=== PATIENT | female | born 1955 | race Caucasian/White ===

== ENCOUNTER 2017-05-08 07:36 | Emergency (ER) | payer OTHER ==
[2017-05-08] MEDS ORDERED: Meclizine TAB* 12.5 MG PO ONE (08:39)
--- NOTE | 2017-05-08 08:49 | UC ---
Favian Marshall Gabriel, scribed for Baylee Caro MD on 05/08/17 at 0809 . Dizzy HPI HPI Summary: This patient is a 61 year old F presenting to [facility] with a chief complaint of dizziness since 05-04-17 when she got out of bed that morning. Pt states noticed when she turned her head. Patient reports weakness, increased stress, decreased appetite, nausea, and one episode of dry heaving. Patient denies CP, SOB, ABD pain, diarrhea, sore throat, vision changes, incontinence, and ear pain. As she went to get out of bed patient tipped over and hit face on door but she did not fall to the ground. Pt states since 05/04 her sx have improved, but she wanted to get checked. Pt states her dizziness is slightly better today but still present. No fever, chills, no ear pain, sinus congestion, sore throat. Pt with a h/o vertigo and states sx feel similar. Patients medication reviewed during this visit. - History Of Current Complaint Chief Complaint: UCDizziness Stated Complaint: DIZZY WEAK Time Seen by Provider: 05/08/17 08:04 Hx Obtained From: Patient Onset/Duration: Lasting Days, Still Present Timing: Constant Severity Initially: Mild Severity Currently: Mild Pain Intensity: 0 Pain Scale Used: 0-10 Numeric Associated Signs And Symptoms: Positive: Negative - CP, SOB, ABD pain, diarrhea , sore throat, vision changes, incontinence, and ear pain, Nausea, Decreased Oral Intake - Allergies/Home Medications Allergies/Adverse Reactions: Allergies Allergy/AdvReac Type Severity Reaction Status Date / Time chocolate flavor Allergy GI Upset Verified 05/08/17 08:10 ketorolac [From Toradol] Allergy Rash Verified 05/08/17 08:10 oxycodone Allergy Tingling Verified 05/08/17 08:10 PMH/Surg Hx/FS Hx/Imm Hx Previously Healthy: Yes Endocrine History: Hypothyroidism Cardiovascular History: Hypertension Respiratory History: Asthma, Pulmonary Embolism Psychological History: Depression, Other Other Psychological History: panic attacks - Surgical History Surgical History: Yes Surgery Procedure, Year, and Place: [place] [facility] [place]. [place] [facility] [place] [place] TUBAL LIGATION 1977. left shoulder- bone spurs[place]. [place] [facility] [place] per pt for reflux X 2 LAST 1999 [place] [facility] [place] - Family History Known Family History: Positive: Cardiac Disease, Hypertension, Diabetes - Social History Occupation: Disabled - due to depression Lives: With Family Alcohol Use: None Substance Use Type: None Smoking Status (MU): Never Smoked Tobacco Have You Smoked in the Last Year: No - Immunization History Most Recent Influenza Vaccination: 2016 Most Recent Tetanus Shot: unknown Most Recent Pneumonia Vaccination: never Review of Systems Constitutional: Other - stress, decreased appetite Gastrointestinal: Nausea, Other - dry heaving Neurological: Weakness, Other - dizziness All Other Systems Reviewed And Are Negative: Yes Physical Exam Triage Information Reviewed: Yes Appearance: Well-Appearing, No Pain Distress, Well-Nourished Vital Signs: Initial Vital Signs Temp 97.5 F 05/08/17 07:59 Pulse 74 05/08/17 07:59 Resp 16 05/08/17 07:59 BP 115/76 05/08/17 07:59 Pulse Ox 99 05/08/17 07:59 Vital Signs Reviewed: Yes Eye Exam: Normal Eyes: Positive: Conjunctiva Clear ENT Exam: Normal ENT: Positive: Hearing grossly normal, Pharynx normal, TMs normal, Uvula midline. Negative: Nasal congestion, TM bulging, Sinus tenderness Dental Exam: Normal Neck exam: Normal Neck: Positive: Supple, Nontender, No Lymphadenopathy Respiratory Exam: Normal Respiratory: Positive: Chest non-tender, Lungs clear, Normal breath sounds, No respiratory distress, No accessory muscle use Cardiovascular Exam: Normal Abdominal Exam: Normal Abdomen Description: Positive: Nontender, No Organomegaly, Other: - no bruits b/ l Bowel Sounds: Positive: Present Musculoskeletal Exam: Normal Musculoskeletal: Positive: Strength Intact Neurological Exam: Normal Neurological: Positive: Alert, Muscle Tone Normal, Other: - + horizontal extinguishing nystagmus to left other CN wnl Full AROM x 4 ambulatory without difficulty neg rhomberg Psychological Exam: Normal Skin Exam: Normal Diagnostics - EKG Cardiac Rate: NL - at 0745 Cardiac Rhythm: Sinus: Normal - at 80 BPM , Other Rhythm: New - QTc is [address]/T wave changes Re-Evaluation - Re-Evaluation First Eval Change: Improved - Pt sates feels much improved no dizziness ambulated will give po trial anticipate d/c with meclizine return precautions f./u with pcp pt comfortable and in agreement with plan Dizzy Course/Dx - Course Course Of Treatment: Pt with dizziness upon waking 4 days ago with nausea. sx have improved, not resolved. pt with nystagmus on exam. no other focal findings. vss. EKG unremarkable. will give meclizine and reassess. if not improvement, will consider transfer. pt comfortable and in agreement with plan - Differential Dx/Diagnosis Provider Diagnoses: vertigo Discharge - Discharge Plan Condition: Stable Disposition: HOME Prescriptions: Meclizine TAB* [Antivert 12.5 TAB*] 25 mg PO Q8HR PRN #15 tab PRN Reason: Dizziness Patient Education Materials: Vertigo (ED) Referrals: Berto Kahn MD [Primary Care Provider] - Additional Instructions: - Stay well hydrated. Drink plenty of non-alcoholic, non-caffinated beverages - Okay to take meclizine as prescribed for nausea and dizziness - eat regular, healthy meals - Contact Dr. Kahn to schedule a follow-up appoint. If your symptoms return, you develop fever, vomiting, increased pain or any other concerns it is recommended you go to the emergency department for further evaluation and treatment The documentation as recorded by the Favian roblero Gabriel accurately reflects the service I personally performed and the decisions made by me, Baylee Caro MD.
[2017-05-08 09:17] VITALS: BP 125/77
== END 2017-05-08 09:35 | disposition home or self-care (01) ==
LOC: UCEAST 07:36
DX: R42 Dizziness and giddiness (principal); E03.9 Hypothyroidism, unspecified; I10 Essential (primary) hypertension; J45.909 Unspecified asthma, uncomplicated; Z86.711 Personal history of pulmonary embolism; F41.0 Panic disorder [episodic paroxysmal anxiety]; F32.9 Major depressive disorder, single episode, unspecified; Z88.5 Allergy status to narcotic agent
CPT/HCPCS: 93005; 99212; A9270-GY; G0463

== ENCOUNTER 2017-07-16 11:53 | Emergency (ER) | payer OTHER ==
--- NOTE | 2017-07-16 12:31 | UC ---
Cardiac HPI - HPI Summary HPI Summary: ONSET OF FATIGUE AND NAUSEA 2 DAYS AGO. THEN YESTERDAY AROUND 2 PM WHILE AT REST WATCHING TV DEVELOPED MIDSTERNAL CHEST PAIN DESCRIBED A HEAVINESS ON HER CHEST. PAIN RADIATES TO HER SHOULDER BLADES AND HAS BEEN CONSTANT. WORSE WITH DEEP INSPIRATION. SHE HAS A DECREASED APPETITE AND SOME SLIGHT SHORTNESS OF BREATH. NO VISUAL DISTURBANCES OR HEADACHE. NOT DIZZY. NO SWEATS. SHE HAS A HISTORY OF "CLOTS IN HER LUNGS" IN 1979. REPORTS A HEART CATHETERIZATION IN 2000 THAT DID NOT FIND ANYTHING. TOOK A FULL STRENGTH ASPIRIN THIS MORNING. - History of Current Complaint Stated Complaint: CHEST PRESSURE, NAUGSEA Time Seen by Provider: 07/16/17 11:54 Hx Obtained From: Patient Onset/Duration: Sudden Onset, Lasting Hours, Still Present Timing: Constant Initial Severity: Moderate Current Severity: Moderate Pain Intensity: 8 Chest Pain Location: Mid Sternal Character: Dull/Aching, Heaviness Aggravating Factor(s): Exertion, Deep Breaths Alleviating Factor(s): Nothing Associated Signs & Symptoms: Positive: Chest Pain, SOB, Nausea/Vomiting, Back Pain - Allergy/Home Medications Allergies/Adverse Reactions: Allergies Allergy/AdvReac Type Severity Reaction Status Date / Time chocolate flavor Allergy GI Upset Verified 07/16/17 12:03 ketorolac [From Toradol] Allergy Rash Verified 07/16/17 12:03 oxycodone Allergy Tingling Verified 07/16/17 12:03 Home Medications: Home Medications Calcium Polycarbophil [Fiber] 625 mg PO DAILY 07/16/17 [History Confirmed ] Omeprazole CAP* [Prilosec CAP* 20 MG] 20 mg PO DAILY 07/16/17 [History Confirmed 07/16/17] PMH/Surg Hx/FS Hx/Imm Hx - Additional Past Medical History Additional PMH: PE 1979 Endocrine History: Hypothyroidism Cardiovascular History: Hypertension Respiratory History: COPD, Asthma Neurological History: Migraine Psychological History: Anxiety, Depression - Surgical History Surgical History: Yes Surgery Procedure, Year, and Place: [place] [facility] [place]. hysterectomy 1989 [facility] [place] 2000 [place]. [place] [place] TUBAL LIGATION 1977. left shoulder- bone spurs[place] 2001. right wrist [place] [facility] [place]. esophageal wrap per pt for reflux X 2 LAST 1999 [place] [facility] [place]. - Family History Known Family History: Positive: Cardiac Disease, Hypertension, Diabetes - Social History Alcohol Use: None Substance Use Type: None Smoking Status (MU): Never Smoked Tobacco Have You Smoked in the Last Year: No - Immunization History Most Recent Influenza Vaccination: 2016 Most Recent Tetanus Shot: unknown Most Recent Pneumonia Vaccination: never Review of Systems Constitutional: Fatigue Respiratory: Shortness Of Breath Cardiovascular: Chest Pain Gastrointestinal: Nausea All Other Systems Reviewed And Are Negative: Yes Physical Exam Triage Information Reviewed: Yes Appearance: Well-Nourished, Ill-Appearing - MOD Vital Signs: Initial Vital Signs Temp 99 F 07/16/17 12:07 Pulse 89 07/16/17 12:07 Resp 18 07/16/17 12:07 BP 111/68 07/16/17 12:07 Pulse Ox 95 07/16/17 12:07 Vital Signs Reviewed: Yes Eyes: Positive: Conjunctiva Clear ENT: Positive: Hearing grossly normal Neck: Positive: Supple, Nontender, No Lymphadenopathy Respiratory Exam: Normal Cardiovascular Exam: Normal Abdomen Description: Positive: Soft Musculoskeletal: Positive: No Edema Neurological: Positive: Alert Psychological: Positive: Age Appropriate Behavior Skin: Negative: rashes Diagnostics - EKG Cardiac Rate: NL - 94BPM Cardiac Rhythm: Sinus: Normal Ectopy: PVCs ST Segment: Normal - Clinical Impression Provider Diagnoses: CHEST PAIN - Physician Notifications Discussed Patient Care With: Rivera Taylor - TO [facility] ED BY AMBULANCE Time Discussed With Above Provider: 12:30 Instructed by Provider To: MD Will See In ED Discharge - Sign-Out/Discharge Documenting (check all that apply): Discharge/Admit/Transfer - Discharge Plan Condition: Stable Disposition: [facility] Referrals: Berto Kahn MD [Primary Care Provider] - - Billing Disposition and Condition Condition: STABLE [facility]
[2017-07-16 12:57] VITALS: BP 128/78
== END 2017-07-16 12:40 | disposition short-term general hospital (02) ==
LOC: UCEAST 11:53
DX: R07.89 Other chest pain (principal); R06.02 Shortness of breath; R11.2 Nausea with vomiting, unspecified; M54.9 Dorsalgia, unspecified; R53.83 Other fatigue; E03.9 Hypothyroidism, unspecified; I10 Essential (primary) hypertension; J44.9 Chronic obstructive pulmonary disease, unspecified; G43.909 Migraine, unspecified, not intractable, without status migrainosus; F41.9 Anxiety disorder, unspecified; F32.9 Major depressive disorder, single episode, unspecified; Z86.711 Personal history of pulmonary embolism; Z88.5 Allergy status to narcotic agent
CPT/HCPCS: 93005; 99213; G0463

== ENCOUNTER 2017-07-16 13:04 | Observation (INO) | payer OTHER ==
[2017-07-16] MEDS ORDERED: Nitroglycerin 2% OINT* 1 GM PAK TOPICAL ONE (13:29)
--- NOTE | 2017-07-16 13:38 | RAD ---
HISTORY: Chest pain COMPARISONS: September 18, 2015 VIEWS: 1: frontal portable view of the chest at 1:20 PM FINDINGS: LINES AND TUBES: None. CARDIOMEDIASTINAL SILHOUETTE: The cardiomediastinal silhouette is normal for portable technique. PLEURA: The costophrenic angles are sharp. No pleural abnormalities are noted. LUNG PARENCHYMA: The lungs are clear. ABDOMEN: The upper abdomen is clear. There is no subphrenic gas. BONES AND SOFT TISSUES: No bone or soft tissue abnormalities are noted. IMPRESSION: NO ACTIVE CARDIOPULMONARY DISEASE.
[2017-07-16 13:41] LABS: ABS Basophils 0 10^3/ul (0-0.2); ABS Eosinophils 0 10^3/ul (0-0.6); ABS Lymphocytes 0.4 10^3/ul (1.0-4.8); ABS Monocytes 0.4 10^3/ul (0-0.8); ABS Neutrophils 3.4 10^3/ul (1.5-7.7); ABS Nucleated RBC 0 10^3/ul; Eosinophil % 0.4 % (0-6); Hematocrit 40 % (35-47); Hemoglobin 13.2 g/dl (12.0-16.0); Lymphocyte % 9.6 % (25-47); Mean Corpuscular HGB Conc 33 g/dl (31-36); Mean Corpuscular Hemoglobin 27 pg (27-31); Mean Corpuscular Volume 82 fL (80-97); Nucleated Red Blood Cells % 0.1; Platelet Count 156 10^3/ul (150-450); Red Blood Count 4.92 10^6/ul (4.0-5.4); Red Cell Distribution Width 15 % (10.5-15); White Blood Count 4.3 10^3/ul (3.5-10.8)
[2017-07-16 13:53] LABS: EGFR Non-African American 63.3 (>60)
[2017-07-16] MEDS ORDERED: Iohexol 350* (CONTRAST) 500 ML MDV IV ONE (14:05)
--- NOTE | 2017-07-16 14:44 | RAD ---
HISTORY: Chest pain COMPARISONS: May 15, 2014 TECHNIQUE: Multiple contiguous axial CT scans of the chest were obtained after the administration of nonionic intravenous contrast, timed to the pulmonary arterial phase of contrast enhancement.. Coronal and sagittal multiplanar reformations are also submitted for review. FINDINGS: NECK AND THYROID: The lower neck and thyroid are unremarkable. CHEST WALL: There is no lower cervical, axillary, or supraclavicular lymphadenopathy by size criteria. HEART AND PERICARDIUM: The heart is unremarkable. AORTA AND PULMONARY VASCULATURE: The aorta and pulmonary vasculature are normal. MEDIASTINUM: There is no mediastinal lymphadenopathy by size criteria. JANETH: There is no hilar lymphadenopathy by size criteria. AIRWAY AND ESOPHAGUS: The airway is unremarkable, without endobronchial filling defect. The esophagus is grossly normal. LUNG PARENCHYMA: The lungs are clear. PLEURA: There is a small fat-containing Bochdalek hernia on the left. UPPER ABDOMEN: The upper abdomen is unremarkable. BONES AND SOFT TISSUES: There is a scoliotic curvature of the spine. Mild degenerative changes are noted. OTHER: None. IMPRESSION: NO PULMONARY ARTERIAL FILLING DEFECT TO SUGGEST PULMONARY EMBOLISM.
[2017-07-16] MEDS ORDERED: Morphine INJ* 10 MG/ML 1 ML CARPUJECT IV ONE (16:13)
[2017-07-16] MEDS ORDERED: Ondansetron INJ* 2 MG/ML VIAL IV PRN (16:19)
[2017-07-16] MEDS ORDERED: Lidocaine 2% VISCOUS* 15 ML UDC PO ONE (16:19)
[2017-07-16] MEDS ORDERED: Acetaminophen TAB* 325 MG PO PRN (16:19)
[2017-07-16] MEDS ORDERED: Sucralfate SUSP 1 GM/10 ml 10 ML UDC PO PRN (16:23)
[2017-07-16] MEDS ORDERED: Al Hydrox/Mg Hydrox/Simet LIQ* 30 ML UDC PO ONE (16:26)
[2017-07-16] MEDS ORDERED: Potassium Chloride LIQUID* 20 MEQ PACKET PO ONE (17:00)
[2017-07-16] MEDS ORDERED: Albuterol/Ipratropium NEB.SOL* Albuterol 2.5 MG/Ipratropium 0.5 MG 3 ML INH PRN (17:14)
--- NOTE | 2017-07-16 17:15 | RAD ---
HISTORY: Swollen legs COMPARISONS: May 25, 2010 TECHNIQUE: Multiple transverse and longitudinal ultrasound images were obtained of the bilateral lower extremities from the level of the common femoral vein inferiorly through to the infrapopliteal veins using grayscale, color Doppler, and spectral Doppler imaging with and without compression and with augmentation. FINDINGS: VEINS: The venous system of the bilateral lower extremities is compressible throughout its course, with normal flow on color Doppler imaging and normal response to augmentation on spectral Doppler imaging. SOFT TISSUES: Unremarkable. OTHER FINDINGS: None. IMPRESSION: NO RIGHT LOWER EXTREMITY DEEP VEIN THROMBOSIS. NO LEFT LOWER EXTREMITY DEEP VEIN THROMBOSIS
[2017-07-16] MEDS: Morphine VIAL* 4 MG/ML VIAL (1 ml vial) IV PRN ×2 (17:32→22:12)
--- NOTE | 2017-07-16 22:10 | HP ---
CC: Dr. Berto Kahn * ADMISSION HISTORY AND PHYSICAL: DATE OF ADMISSION: 07/16/17 PRIMARY CARE PROVIDER: Dr. Berto Kahn. MY ATTENDING WHILE IN THE HOSPITAL: Dr. Estiven Salmeron.* (DICTATED BY BETHANY CERVANTES) CHIEF COMPLAINT: Chest pain since 07/13/17. HISTORY OF PRESENT ILLNESS: Ms. Jesús Alexander is a 61-year-old female with a past medical history significant for hypertension, hyperlipidemia, PE, gastroparesis, anal cancer, status post chemo and radiation; and IBS-D, who presents with 3 days of chest pain that she describes as crushing in center of her chest. It has been going on since Saturday night, it is accompanied by nausea. The patient has baseline shortness of breath, but is not worse and the pain radiates to her back, but does not radiate into her arms or neck. The patient has had this pain previously and it went away on its own without intervention. It does not feel like her previous reflux. The patient has had a Vaughn fundoplication with a revision. The patient had an EGD in 2015, which was normal. The patient has confirmed gastroparesis, planned nuclear medicine scans. There is not any promotility agents. The patient recently had her antacid decreased from 40 mg of omeprazole a day to 20. The patient had a cardiac cath in 2000 and a normal cardiac stress test in October of 2016. The patient denies palpitations, fevers, or chills. The patient has no recent changes in her medications, diet except for the addition of fiber. The patient denies changes in vision, headache, increasing diarrhea. The patient feels like she needs to vomit, but has not actually vomited. The patient had swelling in her legs yesterday, this is a recurring problem with her and usually resolves with recumbency. The patient denies orthopnea, dyspnea on exertion. The patient has been seeing a operations boardman since 2015. The patient was given nitro patch in the emergency department and there was no reduction in her chest pain. The patient took aspirin at home and this did not change her chest pain. We were asked to evaluate for admission due to the patient's multiple cardiac risk factors and persistent chest pain. PAST MEDICAL HISTORY: 1. Anal cancer, 2012, status post chemo and radiation. 2. Migraines. 3. Hypertension. 4. Arthritis. 5. History of PE. 6. Hypothyroidism. 7. Asthma/COPD. 8. Chronic fatigue syndrome. 9. Depression. 10. Panic attacks. 11. Agoraphobia. 12. Osteoporosis. 13. Hyperlipidemia. 14. Gastroparesis. PAST SURGICAL HISTORY: 1. Tubal ligation. 2. Hysterectomy. 3. Vaughn fundoplication. 4. Revision left shoulder bone spur removal. 5. Tonsillectomy. 6. Catheterization, 2000. 7. Colonoscopy in 2012. MEDICATIONS: 1. Diltiazem 125 mg CD daily. 2. Dyazide 37.5/25, one tab p.o. daily. 3. Vitamin B12, 1000 units p.o. daily. 4. Calcium with vitamin D one tab p.o. daily. 5. Omeprazole 20 mg p.o. daily. 6. Aspirin 325 mg p.o. daily. 7. Levothyroxine 125 mcg p.o. daily. 8. Celebrex 200 mg p.o. daily. ALLERGIES: TORADOL, OXYCODONE, CHOCOLATE. FAMILY HISTORY: The patient's father of prostate cancer. The patient's mother of CHF. The patient had 2 brothers and a sister, all of whom recently of heart disease. SOCIAL HISTORY: The patient never smoked, drank or used illicit drugs. 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 The patient is . The patient has 2 children, who are healthy. The patient likes her surrogate decision maker to be her daughter, Chuy Hoffman. REVIEW OF SYSTEMS: A 14-point review of systems was reviewed and negative except as stated above. PHYSICAL EXAMINATION GENERAL: The patient is a 61-year-old female, who appears older than stated age , and sitting comfortably in bed, in no acute distress. VITAL SIGNS: Temperature 98.4, pulse rate 90, respiratory rate 15, oxygen saturation 95% on room air, blood pressure 113/82. HEENT: Head: Normocephalic, atraumatic. Sclerae anicteric. No conjunctival injection. Nasal mucosa moist. Oral mucosa moist. No pharyngeal erythema, discharge or exudate. NECK: Supple, nontender. No lymphadenopathy. No carotid bruits auscultated. No JVD. RESPIRATORY: Clear to auscultation bilaterally with no wheezes, rales or rhonchi. Good air exchange bilaterally. CARDIAC: Regular rate and rhythm. No clicks, murmurs, gallops, or rubs. Pulses are 2+ in the bilateral dorsalis pedis, posterior tibialis and radial areas. No bilateral calf tenderness. 1+ pitting edema in the bilateral lower extremities symmetrically. ABDOMEN: Soft, nontender, and nondistended. Bowel sounds present and normoactive in all 4 quadrants. No hepatosplenomegaly. No abdominal bruits auscultated. GENITOURINARY: No suprapubic or CVA tenderness. NEURO: Cranial nerves II through XII intact. No focal deficits. PSYCHIATRIC: Pleasant and cooperative. SKIN: Clean, dry, and intact. No rash. DIAGNOSTIC STUDIES/LAB DATA: White blood cell count 4.3, hemoglobin 13.2, hematocrit 40, MCV 82, MCH 27, MCH 33, RDW 15, platelet count 156. Sodium 138, potassium 3.2, chloride 104, carbon dioxide 28, anion gap 6, BUN 22, creatinine 0.91, glucose 133, lactic acid 0.6, calcium 8.7. Bilirubin 0.8, AST 49, ALT 36 , alkaline phosphatase 110. Troponin I 0.01. Total protein 6.9, albumin 3.9, globulin 3.0. Albumin to globulin ratio 1.3. Repeat troponin and lipase is pending. STUDIES DONE WHILE IN THE HOSPITAL: Chest x-ray from 07/16/17, read as no active cardiopulmonary disease. Chest thorax CTA from 07/16/17 read as no pulmonary arterial filling defect to suggest pulmonary embolism. ASSESSMENT AND PLAN/IMPRESSION: Ms. Jesús Alexander is a 61-year-old female with past medical history significant for hyperlipidemia, hypertension, history of pulmonary embolism, gastroparesis and IBS-D, who presents with chest pain for 3 days, which is atypical, varies with movement, but the patient has a ALEXIS risk score of 3 and will be ruled out with a stress test. This likely represents patient's chronic gastroenterological issues and this will be assessed as well during her hospitalization. 1. Chest pain. The patient's chest pain is crushing and substernal, radiating to her back. The patient was ruled out with a CTA for pneumonia, aortic dissection, or pulmonary embolism. The patient did not have a lipase drawn while in the emergency department, this is pending. The patient has nausea accompanying it, but no shortness of breath. The patient has a ALEXIS risk score of 3. The patient recently had a negative nuclear stress test. The patient had a cardiac catheterization in 2000, which was normal. However, the patient is concerned about this representing heart disease and she recently had 3 siblings of heart disease. We will admit the patient to the hospital, get a transthoracic echocardiogram and a nuclear stress test in the morning. The patient will be n.p.o. after midnight. The patient's diltiazem will be held. The patient will have hemoglobin A1c and a fasting lipid panel drawn. The patient had aspirin 325 mg this morning and this will be continued while in the hospital. The patient is having continued chest pain, this will be treated with morphine and continuation of nitroglycerin patch with a goal of eliminating all chest pain. Continue to trend troponin x3. 2. Gastroparesis, IBS-D. This chest pain very possibly represents gastrointestinal pain. The patient has previously had this pain, it has gone away without intervention. We will give the patient a GI cocktail and the patient will have sucralfate available as needed for chest pain due to the patient recently decreasing the patient's omeprazole. We will increase it to the patient's home dose. The patient was on celecoxib and aspirin. We will discontinue the celecoxib due to risk of heart disease as well as contributing to the risk of ulcers. The patient should follow up with a operations boardman as outpatient for consideration of a EGD or other possible issues such as diffuse esophageal spasm or continued gastroesophageal reflux disease despite Vaughn fundoplication. Consideration for promotility agents should also be taken with this patient. 3. Hypertension. Hold the patient's diltiazem for a stress test. Continue Dyazide. The patient is normotensive in emergency department. 4. History of pulmonary embolism. Due to the patient's leg swelling and new onset of chest pain even though she had a negative CTA of the chest, we will rule out deep vein thrombosis with venous ultrasound of the legs. 5. Asthma and chronic obstructive pulmonary disease. The patient is asymptomatic. The patient will have DuoNeb available as needed for shortness of breath. 6. Depression/anxiety. It is possible that anxiety is contributing significantly to the patient's chest pain. We would recommend outpatient followup with her primary care provider for better control of this. 7. Anal cancer. The patient is currently in remission. We will recommend repeat colonoscopy to be determined by her oncologist and operations boardman. 8. Hyperlipidemia. We will update patient's lipid profile. The patient's most recent LDL cholesterol from 02/17/16 was 117. 9. Leg swelling. Continue hydrochlorothiazide and Dyazide. Transthoracic echocardiogram and venous Doppler ultrasound as above. This does not likely represent congestive heart failure; however, assessment of wall motion abnormalities will aid in the diagnosis of both the chest pain and ruling out congestive heart failure and etiology of her leg swelling. 10. Hypothyroidism. Continue levothyroxine. 11. FEN. The patient will have fluids at 75 mL/h due to contrast enhanced study. The patient will have a heart-healthy diet without caffeine and to be n.p.o. after midnight. 12. Code status. The patient will like to be full code. Her surrogate decision maker will be her daughter, Chuy Hoffman as above. 13. DVT prophylaxis. The patient will be on heparin subcu. The patient is a high risk and has a history of DVT. 14. Disposition. The patient will be admitted under observation to telemetry. TIME SPENT: Approximately 60 minutes was spent on this admission, 30 of which was spent [id number] with the patient obtaining history and physical and discussing treatment plan. This plan was discussed with my attending, Dr. Estiven Salmeron, and he is in agreement. BETHANY CERVANTES [id number]/CPS #: [id number] MTDD
[2017-07-16] MEDS: Heparin VIAL(*) 5000 UNITS/ML VIAL (FIVE THOUSAND) SUBCUT SCH (22:13)
[2017-07-16] MEDS ORDERED: PROCHLORPERAZINE INJ 5 MG/ML 2 ML VIAL IV PRN (22:42)
[2017-07-17] MEDS ORDERED: Levothyroxine TAB* 125 MCG TAB PO SCH (06:00)
[2017-07-17 06:06] LABS: ABS Basophils 0 10^3/ul (0-0.2); ABS Eosinophils 0 10^3/ul (0-0.6); ABS Lymphocytes 0.7 10^3/ul (1.0-4.8); ABS Monocytes 0.3 10^3/ul (0-0.8); ABS Neutrophils 2.9 10^3/ul (1.5-7.7); ABS Nucleated RBC 0 10^3/ul; Eosinophil % 0.7 % (0-6); Hematocrit 37 % (35-47); Hemoglobin 12.4 g/dl (12.0-16.0); Lymphocyte % 17.9 % (25-47); Mean Corpuscular HGB Conc 33 g/dl (31-36); Mean Corpuscular Hemoglobin 27 pg (27-31); Mean Corpuscular Volume 81 fL (80-97); Mean Platelet Volume 8.3 um3 (7.4-10.4); Nucleated Red Blood Cells % 0.3; Platelet Count 165 10^3/ul (150-450); Red Blood Count 4.61 10^6/ul (4.0-5.4); Red Cell Distribution Width 14 % (10.5-15)
[2017-07-17 06:24] LABS: EGFR Non-African American 68.5 (>60)
[2017-07-17] MEDS: Heparin VIAL(*) 5000 UNITS/ML VIAL (FIVE THOUSAND) SUBCUT SCH (06:56)
[2017-07-17] MEDS ORDERED: Calcium/Vitamin D TAB 250/125* TAB PO SCH (09:00)
[2017-07-17] MEDS ORDERED: Cyanocobalamin TAB* 500 MCG PO SCH (09:00)
[2017-07-17] MEDS ORDERED: Aspirin EC TAB* 325 MG PO SCH (09:00)
[2017-07-17] MEDS ORDERED: Omeprazole CAP* 20 MG PO SCH (09:00)
[2017-07-17] MEDS ORDERED: Triamterene/HCTZ 37.5-25 MG* CAP PO SCH (09:00)
[2017-07-17 10:58] VITALS: BP 114/62
--- NOTE | 2017-07-17 12:46 | RAD ---
Edited for charges. INDICATION: Chest pain. Hypertension, family history of heart disease. COMPARISON: No relevant prior exams available on the [facility] for [place]. TECHNIQUE: 10.670 mCi of Tc-99m Myoview were administered IV. SPECT images of the heart were obtained. Later on the same day. Under the direction of Dr. Diego, an exercise stress test was performed. The patient achieved a peak heart rate of 172 bpm, 107 % of the age- predicted maximum. Subsequently, the patient was given an IV injection of 25.570 mCi Tc- 99m Myoview. SPECT images of the heart were obtained and a gated wall motion study was performed. FINDINGS: Gated wall motion images were obtained at stress and demonstrate wall motion to be within normal limits. The calculated left ventricular ejection fraction is 72 % at stress. Estimated LEFT ventricular end diastolic volume is 54 mL. TID 0.89. Diaphragmatic attenuation noted on the nonattenuation corrected series. Based on review of the attenuation corrected and non corrected images the distribution of radiopharmaceutical within the myocardium on the stress and rest images is within normal limits. No fixed or reversible regions of hypoperfusion evident. IMPRESSION: 1. No evidence for stress induced myocardial ischemia or presence of an infarct. 2. Normal left ventricular wall motion and ejection fraction. ASSESSMENT: Low risk based on nuclear portion. MTDD
[2017-07-17] MEDS ORDERED: NS 0.9% 1000 ML* 1,000 ML IV SCH ×2 (16:26)
--- NOTE | 2017-07-19 08:08 | DS ---
CC: Berto Kahn MD * DISCHARGE SUMMARY: DATE OF ADMISSION: 07/16/17 DATE OF DISCHARGE: 07/17/17 PRIMARY CARE PROVIDER: Berto Kahn MD. MY ATTENDING WHILE IN THE HOSPITAL: Estiven Salmeron MD.* (DICTATED BY BETHANY CERVANTES) PRIMARY DISCHARGE DIAGNOSES: Chest pain. SECONDARY DISCHARGE DIAGNOSES: 1. Anal cancer. 2. Migraines. 3. Hypertension. 4. Arthritis. 5. History of pulmonary embolism. 6. Hypothyroidism. 7. Chronic obstructive pulmonary disease. 8. Chronic fatigue syndrome. 9. Depression. 10. Panic attacks. 11. Agoraphobia. 12. Osteoporosis. 13. Hyperlipidemia. 14. Gastroparesis. STUDIES DONE WHILE IN THE HOSPITAL: Chest x-ray from 07/16/17 read as no active cardiopulmonary disease. Chest thorax CTA from 07/16/17 read as no pulmonary arterial filling defect to suggest pulmonary embolism. Venous Doppler study from 07/16/17, read as no right lower extremity DVT, no left lower extremity DVT. Nuclear medicine scan from 07/17/17, read as low risk based on nuclear portion. No evidence of stress-induced myocardial ischemia or presence of an infarct, normal left ventricular wall motion and ejection fraction. Echocardiogram from 07/17/17 read as left ventricular chamber size normal, increased basal septal hypertrophy, global ventricular wall motion and contractility within normal limits. Estimated ejection fraction is 55% to 60%. Right ventricular wall thickness is mildly increased. The right ventricular global systolic function is normal. 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 Aortic valve leaflets are mildly thickened with normal function. There is trace mitral regurgitation. There is trace tricuspid regurgitation. No pulmonary hypertension. No prior echo to compare. Echocardiogram from shows normal sinus rhythm. No ST segment changes. Normal axis, QTc of 408, rate of 67. No blocks or hypertrophy. No other abnormalities. MEDICATIONS AT DISCHARGE: 1. Diltiazem 125 mg p.o. daily. 2. Dyazide 37.5/25 one cap p.o. daily. 3. Vitamin B12, 1000 mcg p.o. daily. 4. Calcium carbonate D3, 500/200 one tab p.o. daily. 5. Omeprazole 40 mg p.o. daily. 6. Aspirin 325 mg p.o. daily. 7. Levothyroxine 125 mcg p.o. daily. 8. Celebrex 200 mg p.o. daily. 9. Tylenol 650 mg p.o. q.6 hours as needed. HOSPITAL COURSE: This is a brief summary of the patient's presentation. For more details, please see the history and physical from BETHANY Cervantes, on . In brief, the patient is a 61-year-old female with past medical history significant for the above who presents to the emergency department with chest pain for several days. It was described as crushing, it is in the center of her chest, started on 07/14/17 at night time. The patient had no increased shortness of breath. The patient had nausea, did not vomit. The patient stated the pain radiated to her back and not down her arms or up to her neck. The patient had a previous pain like this and came to emergency department with no troponin elevation or EKG changes. The patient has a normal cardiac stress test in October 2016 and normal catheterization in 2000. The patient's only recent med change she can think of is having her antacid decreased from 40 mg of omeprazole to 20 daily. The patient had EGD in 2015 which showed no issues with her Vaughn fundoplication. The patient had no other associated symptoms. No recent illnesses. The patient was admitted to the hospital due to multiple cardiac risk factors and persistent chest pain. The patient's pain did not respond to nitro patch. The patient's pain responded moderately to morphine. The patient's pain did not respond to a GI cocktail. The patient's pain was constant throughout the night. The patient was able to sleep with the help of morphine and in the morning her chest pain had gone. The patient during this admission had potassium of 3.2, which was replaced. Alkaline phosphatase of 110, LDL cholesterol 70, HDL cholesterol of 52 , hemoglobin A1c of 5.5. Troponin I 0.01, 0.01 and 0.00. Negative lipase. No significant laboratory abnormalities. The patient underwent a nuclear medicine stress test in the morning which was read as above. The patient was stable for discharge on 07/17/17. The patient was chest pain free. The patient had echocardiogram read as above with no wall motion abnormalities or other explanation for her chest pain. Due to the patient's significant gastrointestinal issues, she was recommended to reestablish with a it software developer for ongoing care and diagnosis of this recurrent chest pain. PHYSICAL EXAM ON DAY OF DISCHARGE: General: The patient is a 61-year-old female who appears stated age, sitting comfortably in bed, in no acute distress. Vital signs at the time of discharge: Temperature 97.9, pulse rate 82, respiratory rate 16, oxygen saturation 99% on room air, blood pressure 114/ 62. HEENT: Head: Normocephalic, atraumatic. Sclerae anicteric. No conjunctival injection. Nasal mucosa moist. Oral mucosa moist. No pharyngeal erythema, discharge, or exudate. Neck: Supple, nontender. No lymphadenopathy. No JVD. No carotid bruit auscultated. Cardiac: Regular rate and rhythm. No clicks, murmurs, gallops, or rubs. Pulses 2+ bilaterally in dorsalis pedis, posterior tibialis, and radial areas. 1+ pitting edema in bilateral lower extremities consistent with previous day's exam. Respiratory: Clear to auscultation bilaterally. No wheezes, rales, or rhonchi. Good air exchange bilaterally. Abdomen: Soft, nontender, nondistended. Bowels sounds present, normoactive in all 4 quadrants. No hepatospleno-megaly, no abdominal bruits auscultated. Skin: Clean, dry and intact. No rash. Neuro: Cranial nerves II through XII grossly intact. No focal deficits. Genitourinary: No suprapubic or CVA tenderness. Psychiatric: Pleasant and cooperative. LABORATORY DATA: On day of discharge, white blood cell count 4.0, hemoglobin 12.4, platelet count 165,000. Sodium 138, potassium 3.7, chloride 102, carbon dioxide 28, anion gap 8, BUN 16, creatinine 0.85. Glucose 93, hemoglobin A1c of 5.5, calcium 8.8, magnesium 2.2. Cholesterol 134, LDL cholesterol 70, HDL cholesterol of 52.4, triglycerides 56. DISCHARGE PLAN: The patient will be discharged to home. The patient now had 2 normal stress tests in the past year for this same chest pain. The patient has significant issues with her gastrointestinal system including confirmed gastroparesis and irritable bowel syndrome. In the absence of no other explanation, this is likely related to her gastrointestinal issues. Studies such as manometry, repeat gastric emptying studies, repeat EGD might be helpful in the assessment. This should be undertaken under the care of a it software developer who she should follow with, she has not since her it software developer Dr. Lainez retired. The patient should take antacids as needed for this pain; however, if this does not resolve the pain, the patient should return to the hospital for further evaluation as she does have significant cardiac risk factors. The patient should follow up with her primary care provider in 1 week for general medical management and continued primary prevention of [place]. I would recommend avoiding excess NSAID use including Celebrex due to increase in cardiovascular events. The patient can engage in activity as tolerated and have a heart healthy diet, caffeine okay. TIME SPENT: Approximately 60 minutes were spent on the discharge, 30 of which was spent [id number] with the patient obtaining history and physical and discussing treatment plan. BETHANY CERVANTES [id number]/CPS #: [id number] MTDD
--- NOTE | 2017-07-23 08:42 | ED ---
Olman Marshall Jennifer, scribed for Rivera Taylor MD on 07/16/17 at 1331 . HPI Chest Pain - HPI Summary HPI Summary: The patient is a 61 year old female who presents with constant, midsternal chest pain since yesterday. The patient reports the pain is 7/10 that radiates to between her shoulders. She complains of nausea, feeling cold, and ankle swelling. She denies shortness of breath, pain while breathing, coughing, and having a sour taste in her mouth. - History of Current Complaint Chief Complaint: EDChestWallPain Time Seen by Provider: 07/16/17 13:08 Hx Obtained From: Patient Onset/Duration: Started Days Ago - yesterday, Still Present, Worse Since - today Timing: Constant Initial Severity: Moderate Current Severity: Moderate Pain Intensity: 7 Pain Scale Used: 0-10 Numeric Chest Pain Location: Mid Sternal Chest Pain Radiates: Yes Chest Pain Radiates To:: Back - between shoulders Aggravating Factor(s): Nothing Alleviating Factor(s): Nothing Associated Signs and Symptoms: Positive: Other: - nausea, feeling cold, ankle swelling. NEGATIVE: shortness of breath, pain while breathing, coughing, sour taste in mouth - Allergy/Home Medications Allergies/Adverse Reactions: Allergies Allergy/AdvReac Type Severity Reaction Status Date / Time chocolate flavor Allergy GI Upset Verified 07/16/17 12:03 ketorolac [From Toradol] Allergy Rash Verified 07/16/17 12:03 oxycodone Allergy Tingling Verified 07/16/17 12:03 Home Medications: Home Medications Aspirin EC TAB* [Ecotrin EC TAB*] 325 mg PO DAILY 07/16/17 [History Confirmed ] Calcium Carbonate/Vitamin D3 [Calcium 500+D 500-200 mg-Unit] 1 tab PO DAILY 04/04 [History Confirmed 07/16/17] Cyanocobalamin TAB* [Vitamin B12 TAB*] 1,000 mcg PO DAILY 07/16/17 [History Confirmed 07/16/17] Diltiazem CD CAP* [Cardizem CD CAP*] 120 mg PO DAILY 07/16/17 [History Confirmed 07/16/17] Levothyroxine TAB* [Synthroid TAB*] 125 mcg PO DAILY 07/16/17 [History Confirmed 07/16/17] Omeprazole CAP* [Prilosec CAP* 20 MG] 40 mg PO DAILY 07/16/17 [History Confirmed 07/16/17] Triamterene/HCTZ 37.5-25 MG* [Dyazide CAP*] 1 cap PO DAILY 07/16/17 [History Confirmed 07/16/17] celeCOXIB CAP* [CeleBREX CAP*] 200 mg PO DAILY 07/16/17 [History Confirmed 07/16] PMH/Surg Hx/FS Hx/Imm Hx Endocrine/Hematology History: Reports: Hx Thyroid Disease Denies: Hx Diabetes, Hx Systemic Lupus Erythematosus Cardiovascular History: Reports: Hx Hypertension, Hx Rheumatic Fever - A CHILD, Other Cardiovascular Problems/Disorders - 2 caths Denies: Hx Congestive Heart Failure, Hx Pacemaker/ICD Respiratory History: Reports: Hx Asthma - PRN INHALER, Hx Chronic Obstructive Pulmonary Disease (COPD), Hx Pulmonary Embolism - HX OF 1979, Other Respiratory Problems/Disorders - COPD GI History: Reports: Hx Gastroesophageal Reflux Disease, Hx Hiatal Hernia, Other GI Disorders - ANAL CA Denies: Hx Ulcer History: Denies: Hx Dialysis, Hx Renal Disease Musculoskeletal History: Reports: Hx Arthritis - CHEST,SPINE AND HANDS, Hx Osteoporosis, Other Musculoskeletal History - osteoporosis, FIBROMYALGIA Denies: Hx Rheumatoid Arthritis Sensory History: Reports: Hx Contacts or Glasses - READING GLASSES Denies: Other Sensory Impairments Opthamlomology History: Reports: Hx Contacts or Glasses - READING GLASSES Denies: Other Sensory Impairments Neurological History: Reports: Hx Migraine - 2 X PER MONTH- TREATS WITH REST, Other Neuro Impairments/Disorders - FIBROMYALGIA, CHRONIC FATIGUE SYNDROME, INSOMNIA Psychiatric History: Reports: Hx Anxiety, Hx Depression Denies: Hx Panic Disorder - Cancer History Cancer Type, Location and Year: anal cancer dx 2011 Hx Chemotherapy: Yes - ANAL CANER 2012 Hx Radiation Therapy: Yes - Surgical History Surgery Procedure, Year, and Place: [place] [facility] [place]. hysterectomy [address] [facility] [place]-HEART CATHERIZATION 2000 [place]. L thyroidectomy-[facility] [place] -. TUBAL LIGATION 1977. left shoulder- bone spurs- [place] 2001. right wrist [place] [facility] [place]. esophageal wrap per pt for reflux X 2 LAST 1999 [place], [facility] [place]. Hx Anesthesia Reactions: No Infectious Disease History: No Infectious Disease History: Denies: Hx Clostridium Difficile, Hx Hepatitis, Hx Human Immunodeficiency Virus (HIV), Hx of Known/Suspected MRSA, Hx Shingles, Hx Tuberculosis, Hx Known/ Suspected VRE, Hx Known/Suspected VRSA, History Other Infectious Disease, Traveled Outside the [place] in Last 30 Days - Family History Known Family History: Positive: Cardiac Disease, Hypertension, Diabetes - Social History Alcohol Use: None Hx Substance Use: No Substance Use Type: Reports: None Hx Tobacco Use: No Smoking Status (MU): Never Smoked Tobacco Have You Smoked in the Last Year: No Review of Systems Positive: Chills. Negative: Fever Negative: Erythema Negative: Sore Throat Positive: Chest Pain Respiratory: Negative - Pain while breathing Negative: Shortness Of Breath, Cough Positive: Nausea. Negative: Abdominal Pain, Vomiting Negative: dysuria, hematuria Positive: Edema - ankle swelling. Negative: Myalgia Negative: Rash Neurological: Negative - dizziness All Other Systems Reviewed And Are Negative: Yes Physical Exam - Summary Physical Exam Summary: Constitutional: Well-developed, Well-nourished, Alert. (-) Distressed Skin: Warm, Dry HENT: Normocephalic; Atraumatic Eyes: Conjunctiva normal Neck: Musculoskeletal ROM normal neck. (-) JVD, (-) Stridor, (-) Tracheal deviation Cardio: Rhythm regular, rate normal, Heart sounds normal; Intact distal pulses; The pedal pulses are 2+ and symmetric. Radial pulses are 2+ and symmetric. (-) Murmur Pulmonary/Chest wall: Effort normal. (-) Respiratory distress, (-) Wheezes, (-) Rales Abd: Soft, (-) Tenderness, (-) Distension, (-) Guarding, (-) Rebound Musculoskeletal: (-) Edema Lymph: (-) Cervical adenopathy Neuro: Alert, Oriented x3 Psych: Mood and affect Normal Triage Information Reviewed: Yes Vital Signs On Initial Exam: Initial Vitals Temp Pulse Resp BP Pulse Ox 98.4 F 90 15 113/82 95 07/16/17 13:11 07/16/17 13:11 07/16/17 13:11 07/16/17 13:11 07/16/17 13:11 Vital Signs Reviewed: Yes Diagnostics - Vital Signs Vital Signs Temp Pulse Resp BP Pulse Ox 07/16/17 13:11 98.4 F 90 15 113/82 95 - Laboratory Result Diagrams: 07/16/17 13:22 07/16/17 13:22 Lab Statement: Any lab studies that have been ordered have been reviewed, and results considered in the medical decision making process. - Radiology CXR Xray Interpretation: No Acute Changes - NO ACTIVE CARDIOPULMONARY DISEASE. Dr. Taylor has reviewed this report. Radiology Interpretation Completed By: Radiologist - CT Chest/Thorax CTA CT Interpretation: No Acute Changes - NO PULMONARY ARTERIAL FILLING DEFECT TO SUGGEST PULMONARY EMBOLISM. Dr. Taylor has reviewed this report. CT Interpretation Completed By: Radiologist - EKG 13:22 Cardiac Rate: NL EKG Rhythm: Sinus Rhythm - 86 BPM EKG Interpretation: no STEMI - Additional Comments Diagnostic Additional Comments: Venous Doppler Study. Interpreted by a radiologist. IMPRESSION: NO RIGHT LOWER EXTREMITY DEEP VEIN THROMBOSIS. NO LEFT LOWER EXTREMITY DEEP VEIN THROMBOSIS. Dr. Taylor has reviewed this report. Chest Pain Course/Dx - Course Course Of Treatment: The patient is a 61 year old female who presents with constant, midsternal chest pain since yesterday. The patient shows multiple cardiac risk factors. In the ED course the patient was given NTG. CXR, Chest/ Thorax CTA, Venous Doppler Study, and EKG were obtained. The patient is diagnosed with chest pain, unspecified. The patient was admitted to [facility] [place]. - Diagnoses Provider Diagnoses: Chest pain, unspecified Discharge - Sign-Out/Discharge Documenting (check all that apply): Discharge/Admit/Transfer - Discharge Plan Condition: Good Disposition: ADMITTED TO [facility] The documentation as recorded by the Olman roblero Jennifer accurately reflects the service I personally performed and the decisions made by , Rivera Taylor MD.
== END 2017-07-17 15:30 | disposition home or self-care (01) ==
LOC: ED 13:04 → MEDTELE 16:30
PROVIDERS: ADMIT Student in an Organized Health Care Education/Training Program; ATTEND Student in an Organized Health Care Education/Training Program
DX: R07.9 Chest pain, unspecified (principal); I10 Essential (primary) hypertension; G43.909 Migraine, unspecified, not intractable, without status migrainosus; Z86.711 Personal history of pulmonary embolism; M79.89 Other specified soft tissue disorders; J44.9 Chronic obstructive pulmonary disease, unspecified; E03.9 Hypothyroidism, unspecified; F32.9 Major depressive disorder, single episode, unspecified; F41.9 Anxiety disorder, unspecified; F40.01 Agoraphobia with panic disorder; E78.5 Hyperlipidemia, unspecified; K31.84 Gastroparesis; I51.7 Cardiomegaly; Z85.048 Personal history of other malignant neoplasm of rectum, rectosigmoid junction, and anus; Z79.899 Other long term (current) drug therapy; Z79.01 Long term (current) use of anticoagulants; Z88.8 Allergy status to other drugs, medicaments and biological substances; M81.0 Age-related osteoporosis without current pathological fracture
CPT/HCPCS: 36415; 71045; 71275; 78452; 80048; 80053; 80061; 83036; 83605; 83690; 83735; 84484; 85025; 93005; 93017; 93306; 93970; 96372; 96374; 96375; 99283; A9270-GY; A9502; G0378; J0780; J1644; J2270; J2405; Q9967

== ENCOUNTER 2017-11-05 18:12 | Emergency (ER) | payer MEDICARE, OTHER ==
[2017-11-05] MEDS ORDERED: Morphine VIAL* 10 MG/ML 1 ML VIAL IV ONE (19:09)
[2017-11-05] MEDS ORDERED: Ondansetron INJ* 2 MG/ML VIAL IV ONE (19:09)
[2017-11-05] MEDS ORDERED: NS 0.9% 1000 ML* 1,000 ML IV ONE (19:09)
[2017-11-05 19:13] LABS: ABS Basophils 0.1 10^3/ul (0-0.2); ABS Eosinophils 0.1 10^3/ul (0-0.6); ABS Lymphocytes 0.8 10^3/ul (1.0-4.8); ABS Monocytes 0.4 10^3/ul (0-0.8); ABS Neutrophils 4.2 10^3/ul (1.5-7.7); ABS Nucleated RBC 0 10^3/ul; Eosinophil % 2.5 % (0-6); Hematocrit 40 % (35-47); Hemoglobin 13.5 g/dl (12.0-16.0); Mean Corpuscular HGB Conc 34 g/dl (31-36); Mean Corpuscular Hemoglobin 27 pg (27-31); Mean Corpuscular Volume 81 fL (80-97); Mean Platelet Volume 8.5 um3 (7.4-10.4); Nucleated Red Blood Cells % 0.1; Platelet Count 238 10^3/ul (150-450); Red Blood Count 4.98 10^6/ul (4.00-5.40); Red Cell Distribution Width 14 % (10.5-15); White Blood Count 5.6 10^3/ul (3.5-10.8)
[2017-11-05 19:29] LABS: EGFR Non-African American 60.2 (>60)
--- OUTSIDE RECORDS SUMMARY | 2017-11-05 19:57 | XMS REPORT ---
:1955 External Reference #:[id number] Author Organization [facility] Address [address] [place] [address] [place] [address] Phone [phone] Care Team Providers Name Role Phone Berto Kahn MD Primary Care Physician Unavailable Payers Type Date Identification Numbers Payment Provider Subscriber Medicare Primary Policy Number: Medicare Tamara Toro [id number] PayID: [id number] [address] [place] [address] Commercial Effective: Policy Number: [employer] Tamara Espinosa 2010 [id number] Medicaid Benjamin PayID: [id number] [address] [address] [place] [address] Problems Date Description Provider Status Onset: 07/15/2013 Malignant tumor of anus Anshul Winn M.D.,FACP Onset: 01/23/2010 Benign essential hypertension Christiano Garcia M.D. Active Onset: 01/23/2010 Postoperative hypothyroidism Christiano Garcia M.D. Active Onset: 01/23/2010 Peptic reflux disease Christiano Garcia M.D. Active Onset: 01/23/2010 Atypical depressive disorder Christiano Garcia M.D. Active Onset: 01/23/2010 Extrinsic asthma without status Alicia Mcdonald MD Active asthmaticus Onset: 10/15/2010 Chronic obstructive lung disease Christiano Garcia M.D. Active Note: 2nd hand smoke Onset: 10/15/2010 Panic disorder with agoraphobia Christiano Garcia M.D. Active Onset: 10/15/2010 Myalgia & Myositis Unspec Christiano Garcia M.D. Active Onset: 01/30/2011 Mixed hyperlipidemia Christiano Garcia M.D. Active Onset: 01/30/2011 Arthralgia of the lower leg Christiano Garcia M.D. Active Onset: 04/02/2017 Small bowel bacterial Berto Kahn, Active overgrowth syndrome Stuart,FACP Onset: 06/04/2011 Depressive disorder Christiano Garcia M.D. Inactive Inactive: 08/16/2013 Onset: 10/15/2010 Osteoporosis Christiano Garcia M.D. Resolved Resolved: 04/15/2014 Family History Date Family Member(s) Problem(s) Comments : (age Father due to Cancer, 85 Years) Prostate : (1996) Mother due to CHF Siblings 11 2 bro, 1 sis alive First Brother Chronic Obstructive Pulmonary Disease (COPD) First Brother due to Diabetes () - complications First Brother Diabetes Type II First Brother Hypertension Second Brother due to Motor () Vehicle Accident : (age Third Brother due to [place] 57 Years) : (age Fourth Brother due to CHF 74 Years) First Sister due to Unknown () Causes First Sister due to Heart () Disease Social History Type Date Description Comments Marital Status Lives With Son Occupation Disabled Cigarette Use Never Smoked Cigarettes ETOH Use 09/07/2016 Denies alcohol use Recreational Drug Use Denies Drug Use Smoking Patient has never smoked Exercise Type/Frequency Does not exercise General Hx Text 2 children Allergies, Adverse Reactions, Alerts Date Description Reaction Status Severity Comments 07/15/2013 Toradol Contact dermatitis active Moderate 05/06/2014 Oxycodone see spots,come off cloud 9 active Moderate 02/17/2016 Chocolate active 12/01/2009 NKDA inactive Medications Medication Date Status Form Strength Qnty SIG Indications Ordering Provider Ciprofloxacin 11/05/ Active Tablets 500mg 14tab si Berto Parker s twice a day Jeuss Kahn, x 7 days M.DAnn,FACP Omeprazole 06/07/ Active Capsules 20mg 90cap 1 tab by K21.0 Berto kinney mouth every Jesus Kahn, day M.DAnn,FACP Vitamin D 09/07/ Active Capsules 1000Unit 90cap 2 by mouth Berto (Cholecalcifero 2016 s every day Jesus Kahn, l) Stuart,FACP Celebrex 10/10/ Active Capsules 200mg 60cap 1 by mouth M17.12 Berto 2016 s twice a day Jesus Kahn, as needed Stuart,FACP Levothyroxine 10/21/ Active Tablets 125mcg 30tab 1 by mouth Berto Sodium 2013 s every day Jesus Kahn M.D.,FACP Diltiazem HCL 10/16/ Active Caps ER 120mg 90cap take 1 I10 Berto ER Beads 2013 24HR s capsule by Jesus Kahn, mouth once MCarla,FACP daily Aspirin Ec 10/01/ Active Tablets DR 325mg 90tab 1 by mouth Berto 2013 s every day Jesus Kahn M.D.,FACP Triamterene/Hyd 12/01/ Active Tablets 37.5-25mg 90tab 1 tab by I10 Sanjeev Christensen rochlorothiazid 2009 s mouth ethel Nugent everyday Stuart,FACP Vitamin B12 / Active Tablets 100mcg 180ta 2 tabs by Berto 0000 bs mouth every Jesus Kahn, day Stuart,ALEXISP Bactrim DS 09/09/ Hx Tablets 800-160mg 14tab 1 by mouth Berto 2018 - s twice a day Jesus Kahn, 09/16/ Stuart,ALEXISP 2018 Fibercon 06/07/ Hx Tablets 625mg 120ta 1 tabs Berto 2018 - bs twice a day Jesus Kahn, 07/29/ or as Stuart,FACP 2018 directed as needed Triamcinolone 04/02/ Hx Cream 0.1% 80gm apply twice Berto Acetonide 2018 - a day as Jesus Kahn, 07/29/ needed Stuart,ALEXISP 2018 Calcium 600 09/07/ Hx Tablets 600mg 90tab 1 by mouth Berto 2017 s once a day Jesus Kahn M.D.,ALEXISP Proair HFA 09/07/ Hx Aerosol 108(90Bas 8.500 2 puffs by Berto 2017 e) gm mouth every Jesus Kahn, mcg/Act 4 hours as M.D.,FACP needed Amoxicillin/Cla 07/20/ Hx Tablets 875-125mg 20tab take one J01.90 Donell vulanate 2017 - s tablet q12 Oj, BOTTOM BRUSHER Potassium 07/30/ hours for 2017 10 days Proair HFA 09/12/ Hx Aerosol 108(90Bas 1unit 2 puffs by Berto 2015 - e) s mouth every D. Femi, 07/20/ mcg/Act 4 hours as M.D.,FACP 2016 needed Naproxen 07/31/ Hx Tablets 500mg 60tab 1 tablet by M17.12 Yolande 2016 - s mouth with Bordoni, 10/10/ food twice BOTTOM BRUSHER 2016 daily for two weeks, and then as needed for pain Cane 07/10/ Hx use for M25.562 Mellisa 2016 - ambulation Xavi, 07/20/ in r hand M.D. 2016 Amoxicillin/Cla 04/15/ Hx Tablets 875-125mg 20tab take one J01.90 Donell vulanate 2016 - s tablet q12 Oj, BOTTOM BRUSHER Potassium 02/09/ hours for 2015 10 days Hydrocodone-Paul 04/15/ Hx Tablets 5-325mg 20tab take 1 R51 Donell taminophen 2016 - s tablets Oj, BOTTOM BRUSHER 04/26/ every 6 2016 hours for pain. Align Probiotic 12/31/ Hx 4mg 30uni 1 po daily Z85.048 Berto 2015 [place] ts Jesus Kahn, 12/31/ MCarla,FACP 2014 Align 12/31/ Hx Capsules 4mg 30cap 1 po qd Z85.048 Berto Kahn M.D.,FACP Calcium + D3 12/17/ Hx Tablets 600-200mg 60tab 1 tab by Kaushal 2014 - -Unit s mouth twice Hunter, BOTTOM BRUSHER 09/07/ a day 2017 Acidophilus 10/25/ Hx Tablets 30tab daily Berto Probiotic 2015 - s Jesus Kahn, Formula MCarla,FACP 2014 Acidophilus 10/25/ Hx Capsules 300mg 30cap 1 by mouth Berto Probiotic 2015 - s every day Jesus Kahn, MCarla,FACP 2014 Proair HFA 10/25/ Hx Aerosol 108(90Bas 1unit 2 puffs by Berto 2014 - e) s mouth every D. [place], 04/01/ mcg/Act 4 hours as M.D.,FACP 2015 needed Ondansetron HCL 10/25/ Hx Tablets 4mg 30tab 1 tab sl Berto 2014 - s q8h prn D. [place], 12/31/ M.D.,FACP 2014 Ondansetron Odt 10/25/ Hx Tablets 4mg 30tab 1 tab sl Berto 2014 - Dispers s q8h prn D. [place], 12/31/ M.D.,FACP 2014 Ondansetron 10/25/ Hx Tablets 4mg 20tab 1 tab sl R11.0 Berto 2014 - Dispers s every 8 D. [place], 07/29/ hours as M.D.,FACP 2017 needed [place] 08/30/ Hx Tablets 5-325mg 30tab 1-2 by 715.14 Giulia 2014 - mouth q4-6 Cedeno, 12/30/ hour as M.D. 2014 needed pain Lotrisone 05/06/ Hx Cream 1-0.05% 15gm apply a 782.1 Donell 2015 - thin film WILLY Mcwilliams 05/27/ of the 2014 cream to the affected areas twice daily for 2 weeks. Miralax 04/06/ Hx Powder [id number] 500un 17 gm every Berto 2014 day mixed D. [place], w/ 8 oz M.D.,FACP water/juice Acidophilus 02/25/ Hx Capsules 300mg 30cap 1 by mouth Victoria Probiotic 2014 - s every day Mathew, 02/25/ N.P. 2014 Probiotic & 02/18/ Hx Capsules 30cap 1 by mouth 789.06 Victoria Acidophilus 2013 - s every day Mathew, Formula Extra 02/25/ N.P. Strength 2014 Levoxyl 10/21/ Hx Tablets 125mcg 90tab 1 tablet by Berto 2013 - s mouth every D. [place], 10/21/ morning M.D.,FACP 2013 Colace 07/24/ Hx Capsules 100mg 90cap 1 by mouth Berto 2013 s three times D. [place], a day M.D.,FACP Voltaren 07/15/ Hx Gel 1% 100g apply 1-2 719.44 Berto 2014 - gms to Jesus Kahn, 10/16/ affected M.Jesus,FACP 2014 area twice a day as needed Wellbutrin XL 02/11/ Hx Tablets ER 300mg 30tab 1 by mouth Berto 2012 - 24HR s once daily Jesus Kahn, .D.,FACP 2015 Diltiazem HCL 10/14/ Hx Caps ER 120mg 30cap take 1 401.1 [place] LEENA 2011 - 24HR s capsule by Radha, 10/16/ mouth once M.D. 2013 daily Venlafaxine HCL 09/12/ Hx Caps ER 37.5mg 1mont 3 tab po Kandis ER 2011 - 24HR h every day Jake, .D. 2011 Venlafaxine HCL 09/12/ Hx Tablets 37.5mg 90tab 1 po tid Kandis 2011 - s Jake .D. 2011 Cartia XT 06/03/ Hx Caps ER 240mg 30cap 1 tab qd 401.1 Christiano 2011 - 24HR s Radha, .D. 2011 Omeprazole 06/03/ Hx Capsules 40mg 30cap 1 by mouth K21.0 Berto 2012 [place] PARKER s every day Jesus Kahn, .D.,FACP 2018 Protonix 02/07/ Hx Solution 40mg 30uni once daily Christiano 2010 - Rec ts Waleskaika, .D. 2011 Aspirin 02/05/ Hx Tablets 325mg 30tab once daily Christiano 2010 - s Pachika, .D. 2014 Effexor XR 01/30/ Hx Caps ER 37.5mg 90cap three tabs Christiano 2010 - 24HR s qd Pachika, .D. 2013 Neurontin 11/22/ Hx Capsules 100mg 45cap po tid 357.4 Christiano 2010 - s Pachika, .D. 2010 Venlafaxine HCL 11/17/ Hx Tablets 37.5mg 90tab 3 tab po Christiano 2010 - s daily Pachika, .D. 2010 Percocet 09/15/ Hx Tablets 5-325mg 60tab 1-2 po Marcus 2010 - s q4-6h prn Fer, 11/22/ pain M.DAnn 2010 Ibuprofen 06/21/ Hx Tablets 600mg 90tab po tid take 722.93 Christiano 2010 - s with food Radha, M.D. 2010 Effexor XR 04/24/ Hx Caps ER 75mg 90cap 3 tab po Christiano 2010 - 24HR s daily Waleskaika, 11/17/ M.D. 2010 Venlafaxine HCL 01/23/ Hx Caps ER 75mg 30cap 1 po qd [place] ER 2009 - 24HR s Radha, 04/24/ M.D. 2010 Ondansetron Odt 01/23/ Hx Tablets 4mg 30tab 1 tab sl Berto 2009 - Dispers s q8h prn Jesus Kahn, 10/25/ M.DAnn,FACP 2014 Ibuprofen 01/20/ Hx Tablets 200mg 100ta one po Berto 2009 - bs q6hrs prn Jesus Kahn, 03/28/ with food Stuart,FACP 2010 Oscal 500/200 12/01/ Hx Tablets 500-200mg 60tab twice a day 244.0 Christian Huynh3 2009 - -Unit s Jesus Kahn, 12/17/ M.DAnn,FACP 2015 Levoxyl 09/29/ Hx Tablets 150mcg 30tab 1 by mouth Berto 2009 - s every day Jesus Kahn, 10/21/ in in the M.D.,FACP 2013 morning Cartia XT 09/29/ Hx Caps ER 120mg 30cap 1 po qd Berto 2009 - 24HR nirmal Kahn, 06/03/ MCarla,FACP 2011 Aspir-81 09/29/ Hx Tablets DR 81mg 90tab 1 po qd Harry, 2009 - s MD Alicia 2009 Effexor XR 09/29/ Hx Caps ER 225 90cap 1 po qd Harry, 2009 - 24HR s MD Alicia 2009 Nexium 09/29/ Hx Capsules 40mg 30cap 1 po qd Christiano 2009 - DR nirmal Garcia, 02/07/ M.D. 2010 Albuterol 09/29/ Hx 1unit 2 puffs po Berto Inhaler 2009 - s qid prn Jesus Kahn, M.D.,FACP 2014 Ranitidine HCL 09/29/ Hx Capsules 150mg 90cap 1 po qd Harry, 2009 - s MD Alicia 2010 Lisinopril 09/29/ Hx Tablets 5mg 90tab 1 po qd Harry, 2009 - s MD Alicia 2009 Aspirin/Antacid 09/29/ Hx Tablets DR 325mg 30tab po qd 296.82 Berto 2009 - s Jesus Kahn, M.D.,FACP 2010 Wellbutrin XL / Hx Tablets ER 150mg 21tab 3 po qd Christiano 0000 - 24HR s Pachika, M.D. 2011 Fibercon / Hx Tablets 625mg 30tab 625mg 1 by Berto 0000 s mouth every Jesus Kahn.D.,FACP Acidophilus / Hx Capsules 300mg 30cap 1 by mouth Berto Probiotic 0000 - s every day Jesus Kahn, M.D.,FACP 2014 Linzess / Hx Capsules 145mcg by mouth Unknown 0000 - every day 04/02/ as needed 2018 Medications Administered in Office Medication Date Status Form Strength Qnty SIG Indications Ordering Provider Technetium TC Administered Injection Milad Perdomo 99M 017 Jeffrey Mandujano M.D., FAC, Per Unit Dose FASNC Up To 40 Millicuries Depomedrol Administered Injection Mellisa 40MG Karen Hurley M.D. Depomedrol Administered Injection Mellisa 40MG 016 Stuart Hurley Depomedrol Administered Injection Giulia 80MG 014 Stuart Cedeno Depomedrol Administered Injection Giulia 80MG 013 Stuart eCdeno Depomedrol Administered Injection Baptism 80MG 013 Oliva Higuera Immunizations CPT Code Status Date Vaccine Lot # [id number] Given 04/02/2017 Influenza Virus Vaccine, Quadrivalent, Split, [id number] Preservative Free 98317 Given 03/18/2016 Influenza Virus Vaccine, Quadrivalent, Split Virus, [place] Use 60522 Given 12/31/2014 Influenza Virus Vaccine, Quadrivalent, Split, [id number] Preservative Free 56772 Given 12/31/2014 Pneumococcal Conjugate Vaccine 13 Valent For [id number] Intramuscular Use 34068 Given 02/18/2014 Flu Vaccine Split Virus Preservative Free For [id number] Indiv 3Yr Older 51055 Given 05/28/2012 Pneumonia Vaccine 84174 Given 05/28/2012 Tdap - Tetanus/Diptheria/Acellular Pertussis 24173 Given 01/30/2011 Influenza Virus 3Yrs & Over [id number] 76097 Given 03/28/2010 Influenza Virus 3Yrs & Over [id number] Vital Signs Date Vital Result Comment 11/05/2017 Height 65.5 inches 5'5.50" Weight 206.00 lb Heart Rate 83 /min BP Systolic Sitting 112 mmHg BP Diastolic Sitting 75 mmHg Body Temperature 102.6 F O2 % BldC Oximetry 97 % BMI (Body Mass Index) 33.8 kg/m2 09/09/2017 Height 65.5 inches 5'5.50" Weight 201.00 lb Heart Rate 81 /min BP Systolic Sitting 124 mmHg BP Diastolic Sitting 82 mmHg Body Temperature 97.9 F O2 % BldC Oximetry 99 % BMI (Body Mass Index) 32.9 kg/m2 06/07/2017 Weight 198.00 lb Heart Rate 81 /min BP Systolic 115 mmHg BP Diastolic 70 mmHg Body Temperature 97.4 F O2 % BldC Oximetry 97 % 05/20/2017 Heart Rate 74 /min BP Systolic 124 mmHg BP Diastolic 78 mmHg Respiratory Rate 16 /min 05/13/2017 Heart Rate 78 /min BP Systolic 122 mmHg BP Diastolic 84 mmHg Respiratory Rate 16 /min Body Temperature 97.2 F 04/02/2017 Weight 199.00 lb Heart Rate 68 /min BP Systolic 118 mmHg BP Diastolic 82 mmHg Body Temperature 97.7 F O2 % BldC Oximetry 98 % 03/01/2017 Heart Rate 78 /min BP Systolic 136 mmHg BP Diastolic 84 mmHg Body Temperature 98.1 F 09/07/2016 Height 65.25 inches 5'5.25" Weight 197.50 lb Heart Rate 80 /min BP Systolic Sitting 124 mmHg BP Diastolic Sitting 60 mmHg Body Temperature 98.6 F O2 % BldC Oximetry 98 % BMI (Body Mass Index) 32.6 kg/m2 07/20/2016 Weight 202.50 lb Heart Rate 82 /min BP Systolic 108 mmHg BP Diastolic 66 mmHg Body Temperature 97.2 F O2 % BldC Oximetry 97 % 06/06/2016 Height 67 inches 5'7" Weight 197.25 lb Heart Rate 83 /min BP Systolic 120 mmHg BP Diastolic 76 mmHg Body Temperature 98.4 F O2 % BldC Oximetry 98 % BMI (Body Mass Index) 30.9 kg/m2 03/26/2016 Height 67 inches 5'7" Weight 185.00 lb Heart Rate 74 /min BP Systolic Sitting 102 mmHg BP Diastolic Sitting 68 mmHg Respiratory Rate 16 /min Body Temperature 97.7 F BMI (Body Mass Index) 29.0 kg/m2 02/17/2016 Height 67 inches 5'7" Weight 194.00 lb Heart Rate 72 /min BP Systolic 118 mmHg BP Diastolic 86 mmHg Respiratory Rate 16 /min Body Temperature 98.4 F BMI (Body Mass Index) 30.4 kg/m2 10/31/2015 Heart Rate 72 /min BP Systolic 115 mmHg BP Diastolic 76 mmHg Pain Level 8 10/11/2015 Weight 188.00 lb Heart Rate 70 /min BP Systolic Sitting 124 mmHg BP Diastolic Sitting 82 mmHg Respiratory Rate 15 /min Body Temperature 98.0 F O2 % BldC Oximetry 96 % 08/01/2015 Height 67 inches 5'7" Weight 180.00 lb Pain Level 8 BMI (Body Mass Index) 28.2 kg/m2 07/11/2015 Height 67 inches 5'7" Weight 180.00 lb Heart Rate 76 /min BP Systolic 114 mmHg BP Diastolic 74 mmHg Pain Level 10 BMI (Body Mass Index) 28.2 kg/m2 04/15/2015 Height 65 inches 5'5" Weight 186.00 lb Heart Rate 82 /min BP Systolic Sitting 118 mmHg BP Diastolic Sitting 70 mmHg Respiratory Rate 15 /min Body Temperature 98.2 F O2 % BldC Oximetry 98 % BMI (Body Mass Index) 30.9 kg/m2 04/01/2015 Height 65 inches 5'5" Weight 189.00 lb Heart Rate 71 /min BP Systolic 96 mmHg BP Diastolic 67 mmHg Body Temperature 98.6 F O2 % BldC Oximetry 100 % BMI (Body Mass Index) 31.4 kg/m2 12/31/2014 Height 65 inches 5'5" Weight 183.00 lb Heart Rate 76 /min BP Systolic Sitting 114 mmHg BP Diastolic Sitting 74 mmHg Body Temperature 98.0 F O2 % BldC Oximetry 98 % BMI (Body Mass Index) 30.4 kg/m2 10/14/2014 Height 66 inches 5'6" Weight 176.00 lb Pain Level 8 BMI (Body Mass Index) 28.4 kg/m2 09/16/2014 Height 66 inches 5'6" Weight 176.00 lb Body Temperature 97.3 F BMI (Body Mass Index) 28.4 kg/m2 08/30/2014 Height 65.75 inches 5'5.75" Weight 181.00 lb Pain Level 10 BMI (Body Mass Index) 29.4 kg/m2 05/06/2014 Height 65.75 inches 5'5.75" Weight 181.00 lb Heart Rate 80 /min BP Systolic 108 mmHg BP Diastolic 70 mmHg Body Temperature 98.4 F BMI (Body Mass Index) 29.4 kg/m2 02/18/2014 Weight 176.50 lb Heart Rate 83 /min BP Systolic Sitting 118 mmHg BP Diastolic Sitting 74 mmHg Body Temperature 98.5 F O2 % BldC Oximetry 98 % 11/19/2013 Height 67 inches 5'7" Weight 180.00 lb Pain Level 10 BMI (Body Mass Index) 28.2 kg/m2 10/16/2013 Weight 180.50 lb Heart Rate 88 /min BP Systolic Sitting 108 mmHg BP Diastolic Sitting 68 mmHg Body Temperature 99.3 F 07/15/2013 Height 65.75 inches 5'5.75" Weight 193.00 lb Heart Rate 84 /min BP Systolic Sitting 100 mmHg BP Diastolic Sitting 74 mmHg Body Temperature 98.2 F BMI (Body Mass Index) 31.4 kg/m2 06/04/2011 Height 67 inches 5'7" Weight 238.00 lb Heart Rate 88 /min BP Systolic Sitting 130 mmHg BP Diastolic Sitting 100 mmHg BMI (Body Mass Index) 37.3 kg/m2 01/30/2011 Height 67 inches 5'7" Weight 244.00 lb Heart Rate 68 /min BP Systolic Sitting 140 mmHg BP Diastolic Sitting 78 mmHg BMI (Body Mass Index) 38.2 kg/m2 11/22/2010 Height 67 inches 5'7" Weight 250.00 lb Heart Rate 62 /min BP Systolic Sitting 150 mmHg BP Diastolic Sitting 85 mmHg BMI (Body Mass Index) 39.2 kg/m2 10/03/2010 Weight 245.00 lb Heart Rate 84 /min BP Systolic Sitting 126 mmHg BP Diastolic Sitting 84 mmHg 09/05/2010 Height 67 inches 5'7" Weight 250.00 lb Heart Rate 98 /min BP Systolic Sitting 128 mmHg BP Diastolic Sitting 90 mmHg BMI (Body Mass Index) 39.2 kg/m2 08/29/2010 Height 67 inches 5'7" Weight 240.00 lb Heart Rate 97 /min BP Systolic 138 mmHg BP Diastolic 87 mmHg BMI (Body Mass Index) 37.6 kg/m2 08/21/2010 Height 67 inches 5'7" Weight 250.00 lb Heart Rate 70 /min BP Systolic Sitting 140 mmHg BP Diastolic Sitting 90 mmHg BMI (Body Mass Index) 39.2 kg/m2 07/17/2010 Height 67 inches 5'7" Weight 248.00 lb Heart Rate 86 /min BP Systolic Sitting 140 mmHg BP Diastolic Sitting 98 mmHg BMI (Body Mass Index) 38.8 kg/m2 06/21/2010 Weight 250.00 lb Heart Rate 90 /min BP Systolic Sitting 134 mmHg BP Diastolic Sitting 80 mmHg 03/28/2010 Height 67 inches 5'7" Weight 247.00 lb Heart Rate 90 /min BP Systolic Sitting 116 mmHg BP Diastolic Sitting 80 mmHg O2 % BldC Oximetry 94 % BMI (Body Mass Index) 38.7 kg/m2 01/23/2010 Weight 247.00 lb Heart Rate 106 /min BP Systolic Sitting 132 mmHg BP Diastolic Sitting 82 mmHg 01/16/2010 Weight 244.00 lb Heart Rate 112 /min BP Systolic Sitting 122 mmHg BP Diastolic Sitting 80 mmHg Body Temperature 98.0 F O2 % BldC Oximetry 98 % 12/01/2009 Weight 250.00 lb Heart Rate 80 /min BP Systolic 120 mmHg BP Diastolic 88 mmHg 09/29/2009 Height 67 inches 5'7" Weight 253.00 lb Heart Rate 82 /min BP Systolic Sitting 138 mmHg BP Diastolic Sitting 82 mmHg BMI (Body Mass Index) 39.6 kg/m2 Results Test Date Test Result H/L Range Note Ua Routine 11/05/2017 Ua Specific [place] 1.015 Ua PH 5 Ua Color yellow Ua Appera clear Ua WBC ++ Ua Protein trace Ua Glucose neg Ua Ketones neg Ua Bilirubin neg Ua Urobilinogen norm Ua Nitrite neg Ua Occult Blood trace Laboratory test finding 10/31/2017 TSH (Thyroid Stim Horm) 1.84 mcIU/mL 0.34-5.60 Free T4 (Free Thyroxine) 1.12 ng/dL 0.61-1.12 Urine Culture And 09/09/2017 Urine Culture SEE RESULT BELOW 1 Sensitivities Ua Routine 09/09/2017 Ua Specific [place] 1.010 Ua PH 6 Ua Color yellow Ua Appera cloudy Ua WBC ++ Ua Protein trace Ua Glucose normal Ua Ketones neg Ua Bilirubin neg Ua Urobilinogen normal Ua Nitrite neg Ua Occult Blood 50 Laboratory test finding 08/20/2017 TSH (Thyroid Stim 11.99 mcIU/mL High 0.34-5.60 Horm) Basic Metabolic Panel 08/13/2017 Sodium 140 mmol/L 139-145 Potassium 4.3 mmol/L 3.5-5.0 Chloride 106 mmol/L 101-111 Co2 Carbon Dioxide 30 mmol/L 22-32 Anion Gap 4 mmol/L 2-11 Glucose 86 mg/dL 70-100 Blood Urea Nitrogen 19 mg/dL 6-24 Creatinine 0.89 mg/dL 0.51-0.95 BUN/Creatinine Ratio 21.3 High 8-20 Calcium 8.9 mg/dL 8.6-10.3 Egfr Non- 64.9 >60 Egfr 83.5 >60 2 Lipid Profile (Trig/Chol/HDL) 08/13/2017 Triglycerides 92 mg/dL 3 Cholesterol 184 mg/dL 4 HDL Cholesterol 55.7 mg/dL 5 LDL Cholesterol 110 mg/dL 6 CBC Auto Diff 07/16/2017 White Blood Count 4.3 10^3/uL 3.5-10.8 Red Blood Count 4.92 10^6/uL 4.0-5.4 Hemoglobin 13.2 g/dL 12.0-16.0 Hematocrit 40 % 35-47 Mean Corpuscular Volume 82 fL 80-97 Mean Corpuscular Hemoglobin 27 pg 27-31 Mean Corpuscular HGB Conc 33 g/dL 31-36 Red Cell Distribution Width 15 % 10.5-15 Platelet Count 156 10^3/uL 150-450 Mean Platelet Volume 9.0 um3 7.4-10.4 Abs Neutrophils 3.4 10^3/uL 1.5-7.7 Abs Lymphocytes 0.4 10^3/uL Low 1.0-4.8 Abs Monocytes 0.4 10^3/uL 0-0.8 Abs Eosinophils 0 10^3/uL 0-0.6 Abs Basophils 0 10^3/uL 0-0.2 Abs Nucleated RBC 0 10^3/uL Granulocyte % 80.7 % 38-83 Lymphocyte % 9.6 % Low 25-47 Monocyte % 8.6 % High 0-7 Eosinophil % 0.4 % 0-6 Basophil % 0.7 % 0-2 Nucleated Red Blood Cells % 0.1 Comp Metabolic Panel 07/16/2017 Sodium 138 mmol/L Low 139-145 Potassium 3.2 mmol/L Low 3.5-5.0 Chloride 104 mmol/L 101-111 Co2 Carbon Dioxide 28 mmol/L 22-32 Anion Gap 6 mmol/L 2-11 Glucose 113 mg/dL High 70-100 Blood Urea Nitrogen 22 mg/dL 6-24 Creatinine 0.91 mg/dL 0.51-0.95 BUN/Creatinine Ratio 24.2 High 8-20 Calcium 8.7 mg/dL 8.6-10.3 Total Protein 6.9 g/dL 6.4-8.9 Albumin 3.9 g/dL 3.2-5.2 Globulin 3.0 g/dL 2-4 Albumin/Globulin Ratio 1.3 1-3 Total Bilirubin 0.80 mg/dL 0.2-1.0 Alkaline Phosphatase 110 U/L High 34-104 Alt 36 U/L 7-52 Ast 49 U/L High 13-39 Egfr Non- 63.3 >60 Egfr 81.4 >60 7 Laboratory test finding 07/16/2017 Troponin-I (TnI) 0.01 ng/mL <0.04 Lactic Acid 0.6 mmol/L 0.5-2.0 8 Lipase 22 U/L 11.0-82.0 Laboratory test finding 07/16/2017 Troponin-I (TnI) 0.01 ng/mL <0.04 Laboratory test finding 04/02/2017 Erythrocyte Sed Rate 31 mm/Hr High 0- 30 Basic Metabolic Panel 04/02/2017 Sodium 139 mmol/L 133-145 Potassium 4.3 mmol/L 3.5-5.0 Chloride 105 mmol/L 101-111 Co2 Carbon Dioxide 31 mmol/L 22-32 Anion Gap 3 mmol/L 2-11 Glucose 88 mg/dL 70-100 Blood Urea Nitrogen 20 mg/dL 6-24 Creatinine 0.81 mg/dL 0.51-0.95 BUN/Creatinine Ratio 24.7 High 8-20 Calcium 9.1 mg/dL 8.6-10.3 Egfr Non- 72.4 >60 Egfr 93.1 >60 9 Laboratory test finding 04/02/2017 Vitamin D Total 25(Oh) 21.2 ng/mL 20- 50 Thyroid Function Garvin 04/02/2017 Thyroid Stim Hormone 4.5 mIU/L 0.3- 4.2 10 Free T4 1.3 ng/dL 0.9 - 1.7 11 Thyroperoxidase Antibody 54.6 IU/mL <9.0 12 Laboratory test finding 08/31/2016 TSH (Thyroid Stim Horm) 2.55 mcIU/mL 0.34-5.60 CBC Auto Diff 08/31/2016 White Blood Count 5.8 10^3/uL 3.5-10.8 Red Blood Count 4.45 10^6/uL 4.0-5.4 Hemoglobin 12.0 g/dL 12.0-16.0 Hematocrit 37 % 35-47 Mean Corpuscular Volume 83 fL 80-97 Mean Corpuscular Hemoglobin 27 pg 27-31 Mean Corpuscular HGB Conc 33 g/dL 31-36 Red Cell Distribution Width 15 % 10.5-15 Platelet Count 189 10^3/uL 150-450 Mean Platelet Volume 10 um3 7.4-10.4 Abs Neutrophils 4.3 10^3/uL 1.5-7.7 Abs Lymphocytes 0.7 10^3/uL Low 1.0-4.8 Abs Monocytes 0.5 10^3/uL 0-0.8 Abs Eosinophils 0.2 10^3/uL 0-0.6 Abs Basophils 0.1 10^3/uL 0-0.2 Abs Nucleated RBC 0.01 10^3/uL Granulocyte % 75.4 % 38-83 Lymphocyte % 12.2 % Low 25-47 Monocyte % 8.4 % 1-9 Eosinophil % 3.1 % 0-6 Basophil % 0.9 % 0-2 Nucleated Red Blood Cells % 0.1 Laboratory test finding 08/31/2016 Vitamin D Total 25(Oh) 19.0 ng/mL Low 30-50 Lipid Profile 02/17/2016 Triglycerides 74 mg/dL 13, 14 (Trig/Chol/HDL) Cholesterol 194 mg/dL 13, 15 HDL Cholesterol 62.1 mg/dL 13, 16 LDL Cholesterol 117 mg/dL 13, 17 Laboratory test 02/17/2016 Vitamin D Total 20.2 ng/mL Low 30-50 13, 18 finding 25(Oh) Laboratory test 01/19/2016 Clotest SEE RESULT BELOW 19, 20 finding Laboratory test 10/31/2015 TSH (Thyroid Stim 0.68 mcIU/mL 0.34-5.60 finding Horm) CBC Auto Diff 09/18/2015 White Blood Count 4.8 10^3/uL 3.5-10.8 Red Blood Count 4.17 10^6/uL 4.0-5.4 Hemoglobin 11.7 g/dL Low 12.0-16.0 Hematocrit 35 % 35-47 Mean Corpuscular Volume 84 fL 80-97 Mean Corpuscular Hemoglobin 28 pg 27-31 Mean Corpuscular HGB Conc 33 g/dL 31-36 Red Cell Distribution Width 14 % 10.5-15 Platelet Count 181 10^3/uL 150-450 Mean Platelet Volume 9 um3 7.4-10.4 Abs Neutrophils 3.4 10^3/uL 1.5-7.7 Abs Lymphocytes 0.7 10^3/uL Low 1.0-4.8 Abs Monocytes 0.4 10^3/uL 0-0.8 Abs Eosinophils 0.2 10^3/uL 0-0.6 Abs Basophils 0 10^3/uL 0-0.2 Abs Nucleated RBC 0.01 10^3/uL Granulocyte % 71.2 % 38-83 Lymphocyte % 15.2 % Low 25-47 Monocyte % 9.1 % High 1-9 Eosinophil % 3.7 % 0-6 Basophil % 0.8 % 0-2 Nucleated Red Blood Cells % 0.1 Comp Metabolic Panel 09/18/2015 Sodium 140 mmol/L 133-145 Potassium 3.3 mmol/L Low 3.5-5.0 Chloride 105 mmol/L 101-111 Co2 Carbon Dioxide 28 mmol/L 22-32 Anion Gap 7 mmol/L 2-11 Glucose 93 mg/dL 70-100 Blood Urea Nitrogen 24 mg/dL 6-24 Creatinine 0.97 mg/dL High 0.51-0.95 BUN/Creatinine Ratio 24.7 High 8-20 Calcium 9.2 mg/dL 8.6-10.3 Total Protein 6.7 g/dL 6.4-8.9 Albumin 3.9 g/dL 3.2-5.2 Globulin 2.8 g/dL 2-4 Albumin/Globulin Ratio 1.4 1-3 Total Bilirubin 0.30 mg/dL 0.2-1.0 Alkaline Phosphatase 65 U/L 34-104 Alt 12 U/L 7-52 Ast 15 U/L 13-39 Egfr Non- 59.2 >60 Egfr 76.1 >60 21 Laboratory test finding 09/18/2015 Magnesium 2.1 mg/dL 1.9-2.7 Troponin-I (TnI) 0.00 ng/mL <0.03 22 Urinalysis Profile 06/01/2015 Urine Color Yellow Urine Appearance Clear Urine Specific [place] 1.014 1.010-1.030 Urine pH 5.0 5-9 Urine Urobilinogen Negative Negative Urine Ketones 1+ Negative Urine Protein Negative Negative Urine Leukocytes 1+ Negative Urine Blood 1+ Negative Urine Nitrite Positive Negative Urine Bilirubin Negative Negative Urine Glucose Negative Negative Urine White Blood Cell 3+(>20/hpf) Absent Urine Red Blood Cell 1+(3-5/hpf) Absent Urine Bacteria Absent Absent CBC Auto Diff 06/01/2015 White Blood Count 5.4 10^3/uL 3.5-10.8 Red Blood Count 4.80 10^6/uL 4.0-5.4 Hemoglobin 13.3 g/dL 12.0-16.0 Hematocrit 41 % 35-47 Mean Corpuscular Volume 85 fL 80-97 Mean Corpuscular Hemoglobin 28 pg 27-31 Mean Corpuscular HGB Conc 33 g/dL 31-36 Red Cell Distribution Width 14 % 10.5-15 Platelet Count 167 10^3/uL 150-450 Mean Platelet Volume 9 um3 7.4-10.4 Abs Neutrophils 4.5 10^3/uL 1.5-7.7 Abs Lymphocytes 0.4 10^3/uL Low 1.0-4.8 Abs Monocytes 0.5 10^3/uL 0-0.8 Abs Eosinophils 0 10^3/uL 0-0.6 Abs Basophils 0 10^3/uL 0-0.2 Abs Nucleated RBC 0 10^3/uL Granulocyte % 83.6 % High 38-83 Lymphocyte % 6.9 % Low 25-47 Monocyte % 8.6 % 1-9 Eosinophil % 0.5 % 0-6 Basophil % 0.4 % 0-2 Nucleated Red Blood Cells % 0.1 Laboratory test 06/01/2015 D Dimer Quantitative < 200 ng/mL Less Than 230 23 finding Troponin-I (TnI) 0.00 ng/mL <0.03 24 Comp Metabolic Panel 06/01/2015 Sodium 136 mmol/L 133-145 Potassium 4.0 mmol/L 3.5-5.0 Chloride 100 mmol/L Low 101-111 Co2 Carbon Dioxide 29 mmol/L 22-32 Anion Gap 7 mmol/L 2-11 Glucose 96 mg/dL 70-100 Blood Urea Nitrogen 15 mg/dL 6-24 Creatinine 0.86 mg/dL 0.51-0.95 BUN/Creatinine Ratio 17.4 8-20 Calcium 9.5 mg/dL 8.6-10.3 Total Protein 7.4 g/dL 6.4-8.9 Albumin 4.3 g/dL 3.2-5.2 Globulin 3.1 g/dL 2-4 Albumin/Globulin Ratio 1.4 1-3 Total Bilirubin 0.60 mg/dL 0.2-1.0 Alkaline Phosphatase 85 U/L 34-104 Alt 19 U/L 7-52 Ast 23 U/L 13-39 Egfr Non- 68.0 >60 Egfr 87.5 >60 25 Laboratory test finding 06/01/2015 Lipase 12 U/L 11.0-82.0 Urine Culture And 06/01/2015 Urine Culture SEE RESULT BELOW 26 Sensitivities Lipid Profile 01/10/2015 Triglycerides 89 mg/dL 27, 28 (Trig/Chol/HDL) Cholesterol 182 mg/dL 27, 29 HDL Cholesterol 60.6 mg/dL 27, 30 LDL Cholesterol 104 mg/dL 27, 31 Laboratory test 01/10/2015 Alpha 1 Antitrypsin 119 mg/dL 100 - 190 27, 32 finding A1a Comp Metabolic Panel 01/10/2015 Sodium 137 mmol/L 133-145 Potassium 4.0 mmol/L 3.5-5.0 Chloride 104 mmol/L 101-111 Co2 Carbon Dioxide 31 mmol/L 22-32 Anion Gap 2 mmol/L 2-11 Glucose 78 mg/dL 70-100 Blood Urea Nitrogen 17 mg/dL 6-24 Creatinine 0.80 mg/dL 0.51-0.95 BUN/Creatinine Ratio 21.3 High 8-20 Calcium 9.2 mg/dL 8.6-10.3 Total Protein 6.3 g/dL Low 6.4-8.9 Albumin 3.9 g/dL 3.2-5.2 Globulin 2.4 g/dL 2-4 Albumin/Globulin Ratio 1.6 1-3 Total Bilirubin 0.40 mg/dL 0.2-1.0 Alkaline Phosphatase 70 U/L 34-104 Alt 11 U/L 7-52 Ast 15 U/L 13-39 Egfr Non- 73.9 >60 Egfr 95.1 >60 33 CBC Auto Diff 01/10/2015 White Blood Count 3.5 10^3/uL Low 4.8-10.8 Red Blood Count 4.44 10^6/uL 4.0-5.4 Hemoglobin 12.5 g/dL 12.0-16.0 Hematocrit 39 % 35-47 Mean Corpuscular Volume 88 fL 80-97 Mean Corpuscular Hemoglobin 28 pg 27-31 Mean Corpuscular HGB Conc 32 g/dL 31-36 Red Cell Distribution Width 14 % 10.5-15 Platelet Count 175 10^3/uL 150-450 Mean Platelet Volume 9 um3 7.4-10.4 Abs Neutrophils 2.5 10^3/uL 1.5-7.7 Abs Lymphocytes 0.5 10^3/uL Low 1.0-4.8 Abs Monocytes 0.3 10^3/uL 0-0.8 Abs Eosinophils 0.1 10^3/uL 0-0.6 Abs Basophils 0 10^3/uL 0-0.2 Abs Nucleated RBC 0 10^3/uL Granulocyte % 72.5 % 38-83 Lymphocyte % 14.6 % Low 25-47 Monocyte % 9.0 % 1-9 Eosinophil % 3.4 % 0-6 Basophil % 0.5 % 0-2 Nucleated Red Blood Cells % 0.1 Ua Routine 12/31/2014 Ua Specific [place] 1.010 Ua PH 5 Ua Color yellow Ua Appera clear Ua WBC neg Ua Protein neg Ua Glucose norm Ua Ketones neg Ua Bilirubin neg Ua Urobilinogen norm Ua Nitrite neg Ua Occult Blood neg Laboratory test 09/07/2014 Surgical Pathology SEE RESULT BELOW 34 finding CBC Auto Diff 06/28/2014 White Blood Count 3.3 10^3/uL Low 4.8-10.8 Red Blood Count 4.31 10^6/uL 4.0-5.4 Hemoglobin 12.1 g/dL 12.0-16.0 Hematocrit 38 % 35-47 Mean Corpuscular Volume 88 fL 80-97 Mean Corpuscular Hemoglobin 28 pg 27-31 Mean Corpuscular HGB Conc 32 g/dL 31-36 Red Cell Distribution Width 15 % 10.5-15 Platelet Count 167 10^3/uL 150-450 Mean Platelet Volume 8 um3 7.4-10.4 Abs Neutrophils 2.4 10^3/uL 1.5-7.7 Abs Lymphocytes 0.5 10^3/uL Low 1.0-4.8 Abs Monocytes 0.3 10^3/uL 0-0.8 Abs Eosinophils 0.1 10^3/uL 0-0.6 Abs Basophils 0 10^3/uL 0-0.2 Abs Nucleated RBC 0 10^3/uL Granulocyte % 72.5 % 38-83 Lymphocyte % 14.0 % Low 25-47 Monocyte % 9.2 % High 1-9 Eosinophil % 3.2 % 0-6 Basophil % 1.1 % 0-2 Nucleated Red Blood Cells % 0 Comp Metabolic Panel 06/28/2014 Sodium 141 mmol/L 133-145 Potassium 4.4 mmol/L 3.5-5.0 Chloride 107 mmol/L 101-111 Co2 Carbon Dioxide 30 mmol/L 22-32 Anion Gap 4 mmol/L 2-11 Glucose 90 mg/dL 70-100 Blood Urea Nitrogen 18 mg/dL 6-24 Creatinine 1.03 mg/dL High 0.51-0.95 BUN/Creatinine Ratio 17.5 8-20 Calcium 9.4 mg/dL 8.6-10.3 Total Protein 6.8 g/dL 6.4-8.9 Albumin 4.0 g/dL 3.2-5.2 Globulin 2.8 g/dL 2-4 Albumin/Globulin Ratio 1.4 1-3 Total Bilirubin 0.30 mg/dL 0.2-1.0 Alkaline Phosphatase 69 U/L 34-104 Alt 11 U/L 7-52 Ast 14 U/L 13-39 Egfr Non- 55.4 >60 Egfr 71.3 >60 35 Laboratory test finding 06/28/2014 TSH (Thyroid Stimulating 4.65 IU/mL 0.34-5.60 Horm) Laboratory test finding 05/15/2014 Troponin I 0.00 ng/mL <0.03 36 CBC Auto Diff 05/15/2014 White Blood Count 6.4 10^3/uL 4.8-10.8 Red Blood Count 4.71 10^6/uL 4.0-5.4 Hemoglobin 13.3 g/dL 12.0-16.0 Hematocrit 41 % 35-47 Mean Corpuscular Volume 87 fL 80-97 Mean Corpuscular Hemoglobin 28 pg 27-31 Mean Corpuscular HGB Conc 33 g/dL 31-36 Red Cell Distribution Width 14 % 10.5-15 Platelet Count 183 10^3/uL 150-450 Mean Platelet Volume 9 um3 7.4-10.4 Abs Neutrophils 5.4 10^3/uL 1.5-7.7 Abs Lymphocytes 0.5 10^3/uL Low 1.0-4.8 Abs Monocytes 0.4 10^3/uL 0-0.8 Abs Eosinophils 0.1 10^3/uL 0-0.6 Abs Basophils 0 10^3/uL 0-0.2 Abs Nucleated RBC 0 10^3/uL Granulocyte % 84.4 % High 38-83 Lymphocyte % 7.2 % Low 25-47 Monocyte % 6.8 % 1-9 Eosinophil % 1.2 % 0-6 Basophil % 0.4 % 0-2 Nucleated Red Blood Cells % 0.1 Comp Metabolic Panel 05/15/2014 Sodium 137 mmol/L 133-145 Potassium 3.3 mmol/L Low 3.5-5.0 Chloride 101 mmol/L 101-111 Co2 Carbon Dioxide 27 mmol/L 22-32 Anion Gap 9 mmol/L 2-11 Glucose 90 mg/dL 70-100 Blood Urea Nitrogen 21 mg/dL 6-24 Creatinine 0.92 mg/dL 0.51-0.95 BUN/Creatinine Ratio 22.8 High 8-20 Calcium 9.5 mg/dL 8.6-10.3 Total Protein 7.2 g/dL 6.4-8.9 Albumin 4.2 g/dL 3.2-5.2 Globulin 3.0 g/dL 2-4 Albumin/Globulin Ratio 1.4 1-3 Total Bilirubin 0.30 mg/dL 0.2-1.0 Alkaline Phosphatase 77 U/L 34-104 Alt 13 U/L 7-52 Ast 17 U/L 13-39 Egfr Non- 63.1 >60 Egfr 81.2 >60 37 Laboratory test finding 05/15/2014 Troponin I 0.00 ng/mL <0.03 38 Lipase 12 U/L 11.0-82.0 CBC Auto Diff 03/19/2014 White Blood Count 4.4 10^3/uL Low 4.8-10.8 Red Blood Count 4.39 10^6/uL 4.0-5.4 Hemoglobin 12.7 g/dL 12.0-16.0 Hematocrit 38 % 35-47 Mean Corpuscular Volume 87 fL 80-97 Mean Corpuscular Hemoglobin 29 pg 27-31 Mean Corpuscular HGB Conc 33 g/dL 31-36 Red Cell Distribution Width 14 % 10.5-15 Platelet Count 181 10^3/uL 150-450 Mean Platelet Volume 8 um3 7.4-10.4 Abs Neutrophils 3.5 10^3/uL 1.5-7.7 Abs Lymphocytes 0.4 10^3/uL Low 1.0-4.8 Abs Monocytes 0.3 10^3/uL 0-0.8 Abs Eosinophils 0.1 10^3/uL 0-0.6 Abs Basophils 0 10^3/uL 0-0.2 Abs Nucleated RBC 0 10^3/uL Granulocyte % 79.4 % 38-83 Lymphocyte % 9.4 % Low 25-47 Monocyte % 7.7 % 1-9 Eosinophil % 2.9 % 0-6 Basophil % 0.6 % 0-2 Nucleated Red Blood Cells % 0 Comp Metabolic Panel 03/19/2014 Sodium 137 mmol/L 133-145 Potassium 3.7 mmol/L 3.5-5.0 Chloride 103 mmol/L 101-111 Co2 Carbon Dioxide 31 mmol/L 22-32 Anion Gap 3 mmol/L 2-11 Glucose 65 mg/dL Low 70-100 Blood Urea Nitrogen 20 mg/dL 6-24 Creatinine 0.88 mg/dL 0.51-0.95 BUN/Creatinine Ratio 22.7 High 8-20 Calcium 9.4 mg/dL 8.6-10.3 Total Protein 6.9 g/dL 6.4-8.9 Albumin 4.0 g/dL 3.2-5.2 Globulin 2.9 g/dL 2-4 Albumin/Globulin Ratio 1.4 1-3 Total Bilirubin 0.30 mg/dL 0.2-1.0 Alkaline Phosphatase 69 U/L 34-104 Alt 11 U/L 7-52 Ast 12 U/L Low 13-39 Egfr Non- 66.5 >60 Egfr 85.5 >60 39 Laboratory test finding 03/19/2014 TSH (Thyroid Stimulating 4.48 IU/mL 0.34-5.60 Horm) Laboratory test finding 02/26/2014 TSH (Thyroid Stimulating 2.01 IU/mL 0.34-5.60 Horm) Erythrocyte Sed Rate 40 mm/Hr High 0-30 Ferritin 59.0 ng/mL 11-307 Iron & Iron Binding Capacity 02/26/2014 Iron 50 g/dL 50-212 Unsaturated Iron Binding 245 g/dL Total Iron Binding Capacity 295 g/dL 250-450 % Iron Saturation 17 % 15-55 Pthi 02/26/2014 PTH Intact 3.9 pmol/L 1.3-9.3 Calcium (PTH Intact) 9.1 mg/dL 8.6-10.3 Retic Count 02/26/2014 Retic Count 1.7 % High 0.5-1.5 Corrected Retic Count 1.4 % 0.5-1.5 Maturation Factor Retic 1.5 Retic Index 0.90 Mean Retic Volume 106.0 Immature Retic Fraction 0.37 RBC Retic Count 4.14 10^6/uL Low 4.6-6.2 Hematocrit for Retic CNT 36 % 35-47 Vitamin B12 And Folate Serum 02/26/2014 Vitamin B12 > 1450 pg/mL High 180- 914 40 Folate > 20.00 ng/mL >3.99 CBC Auto Diff 02/26/2014 White Blood Count 3.6 10^3/uL Low 4.8-10.8 Red Blood Count 4.14 10^6/uL 4.0-5.4 Hemoglobin 11.8 g/dL Low 12.0-16.0 Hematocrit 36 % 35-47 Mean Corpuscular Volume 86 fL 80-97 Mean Corpuscular Hemoglobin 29 pg 27-31 Mean Corpuscular HGB Conc 33 g/dL 31-36 Red Cell Distribution Width 14 % 10.5-15 Platelet Count 174 10^3/uL 150-450 Mean Platelet Volume 9 um3 7.4-10.4 Abs Neutrophils 2.9 10^3/uL 1.5-7.7 Abs Lymphocytes 0.3 10^3/uL Low 1.0-4.8 Abs Monocytes 0.3 10^3/uL 0-0.8 Abs Eosinophils 0.1 10^3/uL 0-0.6 Abs Basophils 0 10^3/uL 0-0.2 Abs Nucleated RBC 0 10^3/uL Granulocyte % 79.6 % 38-83 Lymphocyte % 8.8 % Low 25-47 Monocyte % 8.0 % 1-9 Eosinophil % 3.0 % 0-6 Basophil % 0.6 % 0-2 Nucleated Red Blood Cells % 0.1 Surgical Pathology 12/02/2013 S RUN DATE: <SEE NOTE> Laboratory test 10/16/2013 TSH (Thyroid 0.30 IU/mL Low 0.34-5.60 finding Stimulating Horm) Hepatitis C Antibody Nonreactive Nonreactive HIV 1/2 AB Evaluation 10/16/2013 HIV 1 2 Antibody Nonreactive Nonreactive 42 Laboratory test finding 10/16/2013 Amylase 51 U/L 29-103 Lipase 76 U/L 11.0-82.0 CBC Auto Diff 09/17/2013 White Blood Count 4.1 10^3/uL Low 4.8-10.8 Red Blood Count 4.24 10^6/uL 4.0-5.4 Hemoglobin 11.8 g/dL Low 12.0-16.0 Hematocrit 35 % 35-47 Mean Corpuscular Volume 83 fL 80-97 Mean Corpuscular Hemoglobin 28 pg 27-31 Mean Corpuscular HGB Conc 34 g/dL 31-36 Red Cell Distribution Width 15 % 10.5-15 Platelet Count 170 10^3/uL 150-450 Mean Platelet Volume 9 um3 7.4-10.4 Abs Neutrophils 3.2 10^3/uL 1.5-7.7 Abs Lymphocytes 0.4 10^3/uL Low 1.0-4.8 Abs Monocytes 0.4 10^3/uL 0-0.8 Abs Eosinophils 0.1 10^3/uL 0-0.6 Abs Basophils 0 10^3/uL 0-0.2 Abs Nucleated RBC 0 10^3/uL Granulocyte % 76.5 % 38-83 Lymphocyte % 10.0 % Low 25-47 Monocyte % 9.6 % High 1-9 Eosinophil % 3.2 % 0-6 Basophil % 0.7 % 0-2 Nucleated Red Blood Cells % 0.1 Comp Metabolic Panel 09/17/2013 Sodium 141 mmol/L 133-145 Potassium 3.8 mmol/L 3.7-5.6 Chloride 107 mmol/L 101-111 Co2 Carbon Dioxide 28 mmol/L 22-32 Anion Gap 6 mmol/L 2-11 Glucose 46 mg/dL Low 70-100 Blood Urea Nitrogen 17 mg/dL 6-24 Creatinine 0.90 mg/dL 0.51-0.95 BUN/Creatinine Ratio 18.9 8-20 Calcium 9.0 mg/dL 8.6-10.3 Total Protein 6.2 g/dL Low 6.4-8.9 Albumin 3.8 g/dL 3.2-5.2 Globulin 2.4 g/dL 2-4 Albumin/Globulin Ratio 1.6 1-3 Total Bilirubin 0.30 mg/dL 0.2-1.0 Alkaline Phosphatase 60 U/L 34-104 Alt 13 U/L 7-52 Ast 15 U/L 13-39 Egfr Non- 65.0 >60 Egfr 83.6 >60 43 Iron & Iron Binding Capacity 09/17/2013 Iron 45 g/dL Low 50-212 Unsaturated Iron Binding 242 g/dL Total Iron Binding Capacity 287 g/dL 250-450 % Iron Saturation 16 % 15-55 Laboratory test finding 09/17/2013 Ferritin 57.8 ng/mL 11-307 Vitamin B12 1192 pg/mL High 180-914 44 Comp Metabolic Panel 06/22/2013 Sodium 140 mmol/L 133-145 45 Potassium 3.6 mmol/L Low 3.7-5.6 45 Chloride 106 mmol/L 101-111 45 Co2 Carbon Dioxide 29 mmol/L 22-32 45 Anion Gap 5 mmol/L 2-11 45 Glucose 84 mg/dL 70-100 45 Blood Urea Nitrogen 19 mg/dL 6-24 45 Creatinine 0.88 mg/dL 0.51-0.95 45 BUN/Creatinine Ratio 21.6 High 8-20 45 Calcium 8.8 mg/dL 8.6-10.3 45 Total Protein 6.3 g/dL Low 6.4-8.9 45 Albumin 3.9 g/dL 3.2-5.2 45 Globulin 2.4 g/dL 2-4 45 Albumin/Globulin Ratio 1.6 1-3 45 Total Bilirubin 0.50 mg/dL 0.2-1.0 45 Alkaline Phosphatase 62 U/L 34-104 45 Alt 16 U/L 7-52 45 Ast 16 U/L 13-39 45 Egfr Non- 66.7 >60 45 Egfr 85.8 >60 45, 46 Lipid Profile (Trig/Chol/HDL) 06/22/2013 Triglycerides 153 mg/dL 45, 47 Cholesterol 176 mg/dL 45, 48 HDL Cholesterol 44.9 mg/dL 45, 49 LDL Cholesterol 101 mg/dL 45, 50 Surgical Pathology 05/22/2013 S RUN DATE: 05/25/ <SEE NOTE> 51 Urinalysis 02/12/2012 Urine Color Yellow Urine Appearance Clear Urine Specific [place] 1.026 1.010-1.030 Urine Esterase 3+ Negative Urine Nitrate Negative Negative Urine Urobilinogen Negative Negative Urine Protein Negative Negative Urine pH 5.5 5-9 Urine Blood Negative Negative Urine Ketones Negative Negative Urine Bilirubin Negative Negative Urine Glucose Negative Negative Urine Microscopic 02/12/2012 Urine WBC 2+ (>10-30 /hpf) None Seen 52 Urine RBC None Seen None Seen Urine Mucus Present /lpf Absent Urine Epithelial Cells 1+ Squamous /hpf None Seen Urine Culture And 02/12/2012 Urine Culture (SEE NOTE) 53 Sensitivities CBC Auto Diff 02/12/2012 White Blood Count 4.0 10^3/uL Low 4.8-10.8 Red Blood Count 4.55 10^6/uL 4.0-5.4 Hemoglobin 12.9 g/dL 12.0-16.0 Hematocrit 38 % 35-47 Mean Corpuscular Volume 84 fL 80-97 Mean Corpuscular Hemoglobin 28 pg 27-31 Mean Corpuscular HGB Conc 34 g/dL 31-36 Red Cell Distribution Width 14 % 10.5-15 Platelet Count 170 10^3/uL 150-450 Mean Platelet Volume 9 um3 7.4-10.4 Abs Neutrophils 2.5 10^3/uL 1.5-7.7 Abs Lymphocytes 0.9 10^3/uL Low 1.0-4.8 Abs Monocytes 0.5 10^3/uL 0-0.8 Abs Eosinophils 0.1 10^3/uL 0-0.6 Abs Basophils 0.1 10^3/uL 0-0.2 Abs Nucleated RBC 0 10^3/uL Granulocyte % 61.0 % 38-83 Lymphocyte % 23.4 % Low 25-47 Monocyte % 11.6 % High 1-9 Eosinophil % 2.7 % 0-6 Basophil % 1.3 % 0-2 Nucleated Red Blood Cells % 0.1 Comp Metabolic Panel 02/12/2012 Sodium 140 mmol/L 133-145 Potassium 3.6 mmol/L 3.5-5.0 Chloride 108 mmol/L 101-111 Co2 Carbon Dioxide 27.0 mmol/L 22-32 Anion Gap 5.0 mmol/L 2-11 Glucose 86 mg/dL 70-100 Blood Urea Nitrogen 18 mg/dL 6-24 Creatinine 0.80 mg/dL 0.50-1.40 BUN/Creatinine Ratio 22.5 High 8-20 Calcium 9.0 mg/dL 8.1-9.9 Total Protein 7.2 GM/DL 6.2-8.1 Albumin 4.0 GM/DL 3.6-5.4 Globulin 3.2 GM/DL 2-4 Albumin/Globulin Ratio 1.3 1-3 Total Bilirubin 0.7 mg/dL 0.4-1.5 Alkaline Phosphatase 89 U/L 30-110 Alt 21 U/L 14-54 Ast 22 U/L 12-42 Egfr Non- 74.7 >60 Egfr 96.1 >60 54 Laboratory test finding 02/12/2012 Amylase 46 U/L 20-120 Lipase 32 U/L 22-51 Troponin I 0 ng/mL 0-0.06 55 C Reactive Protein 0.6 mg/dL High Less Than 0.5 Vitamin D 1,25 And Vitamin 06/04/2011 Vitamin D, 1,25 Dihydroxy 43 pg/mL 18-78 56 D,2 Vitamin D, 25 Hydroxy 06/04/2011 25-Hydroxy Vitamin D2 <4.0 ng/mL () 25-Hydroxy Vitamin D3 37 ng/mL () 25-Hydroxy Vitamin D Total 37 ng/mL () 57 Laboratory test finding 06/04/2011 TSH 0.40 MIU/ML 0.34-5.60 Lipid Profile (Trig/Chol/HDL) 06/04/2011 Triglyceride 92 mg/dL 40-200 Cholesterol 183 mg/dL Less Than 200 58 High Density Lipoprotein 48 mg/dL 40-60 59 Cholesterol/HDL Ratio 3.81 AVERAGE 1-4.44 Low Density Lipoprotein 117 mg/dL High Less Than 100 60 Laboratory test finding 01/27/2011 Lipase 34 U/L 22-51 Comp Metabolic Panel 01/27/2011 Sodium 137 mmol/L 135-145 Potassium 3.5 mmol/L 3.5-5.0 Chloride 99 mmol/L Low 101-111 Co2 (Carbon Dioxide) 29.0 mmol/L 22-32 Anion Gap 9.0 mmol/L 2-11 61 Glucose 81 mg/dL 70-100 BUN 12 mg/dL 6-24 Creatinine 0.9 mg/dL 0.50-1.40 One Over Creatinine 1.11 BUN/Creatinine Ratio 13.3 8-20 Calcium 8.9 mg/dL 8.1-9.9 Total Protein 7.3 GM/DL 6.2-8.1 Albumin 4.0 GM/DL 3.6-5.4 Globulin 3.3 GM/DL 2-4 Albumin/Globulin Ratio 1.2 1-3 Bilirubin Total 0.5 mg/dL 0.4-1.5 62 Alkaline Phosphatase 88 U/L 30-110 Alt (SGPT) 29 U/L 14-54 Ast (Sgot) 28 U/L 12-42 eGFR Non- 65.5 > 60 eGFR 84.2 > 60 63 CBC Auto Diff 01/27/2011 White Blood Count 7.0 CUMM 4.8-10.8 Red Cell Count 4.87 CUMM 4.2-5.4 Hemoglobin 13.7 g/dL 12.0-16.0 Hematocrit 40 % 35-47 Mean Corpuscular Volume 83 um3 79-97 Mean Corpuscular Hemoglob 28 pg 27-31 Mean Corpuscular HGB Cone 34 g/dL 32-36 Redcell Distribution WDTH 14 % 10.5-15 Platelet Count 246 CUMM 150-450 Mean Platelet Volume 9.5 um3 7.4-10.4 Gran % 73.1 % 38-83 Lymph % 16.3 % Low 25-47 Mononuclear % 8.9 % 1-9 Eosinophil % 1.2 % 0-6 Basophil % 0.5 % 0-2 Abs Lymphs 1.1 1.0-4.8 Abs Mononuclear 0.6 0-0.8 Absolute Neutrophil Count 5.1 1.5-7.7 Abs Eosinophils 0.1 0-0.6 Abs Basophils 0 0-0.2 64 Lipid Profile (Trig/Chol/HDL) 07/25/2010 Triglyceride 145 mg/dL 40-200 Cholesterol 227 mg/dL High Less Than 200 65 High Density Lipoprotein 59 mg/dL 40-60 66 Cholesterol/HDL Ratio 3.85 AVERAGE 1-4.44 Low Density Lipoprotein 139 mg/dL High Less Than 100 67 Comp Metabolic Panel 07/25/2010 Sodium 141 mmol/L 135-145 Potassium 4.3 mmol/L 3.5-5.0 Chloride 107 mmol/L 101-111 Co2 (Carbon Dioxide) 28.0 mmol/L 22-32 Anion Gap 6.0 mmol/L 2-11 68 Glucose 92 mg/dL 70-100 BUN 19 mg/dL 6-24 Creatinine 0.90 mg/dL 0.50-1.40 One Over Creatinine 1.10 BUN/Creatinine Ratio 21.1 High 8-20 Calcium 9.0 mg/dL 8.1-9.9 Total Protein 6.4 GM/DL 6.2-8.1 Albumin 3.9 GM/DL 3.6-5.4 Globulin 2.5 GM/DL 2-4 Albumin/Globulin Ratio 1.6 1-3 Bilirubin Total 0.6 mg/dL 0.4-1.5 69 Alkaline Phosphatase 76 U/L 30-110 Alt (SGPT) 38 U/L 14-54 Ast (Sgot) 32 U/L 12-42 eGFR Non- 65.7 > 60 eGFR 84.6 > 60 70 Rapid Influenza A And B 04/23/2010 Rapid Influenza A B Cell culture mable < SEE 71 Anitgen Antigen NOTE> Rapid Influenza A B Antigen NEGATIVE BY IMMU <SEE NOTE> 72 Hemogram 04/23/2010 White Blood Count 6.1 CUMM 4.8-10.8 Red Cell Count 4.38 CUMM 4.2-5.4 Hemoglobin 12.2 g/dL 12.0-16.0 Hematocrit 37 % 35-47 Mean Corpuscular Volume 84 um3 79-97 Mean Corpuscular Hemoglob 28 pg 27-31 Mean Corpuscular HGB Cone 33 g/dL 32-36 Redcell Distribution WDTH 13 % 10.5-15 Platelet Count 231 CUMM 150-450 Mean Platelet Volume 9.4 um3 7.4-10.4 Basic Metabolic Panel 04/23/2010 Sodium 140 mmol/L 135-145 Potassium 3.7 mmol/L 3.5-5.0 Chloride 106 mmol/L 101-111 Co2 (Carbon Dioxide) 28.0 mmol/L 22-32 Anion Gap 6.0 mmol/L 2-11 73 Glucose 98 mg/dL 70-100 BUN 15 mg/dL 6-24 Creatinine 0.90 mg/dL 0.50-1.40 One Over Creatinine 1.10 BUN/Creatinine Ratio 16.7 8-20 Calcium 9.0 mg/dL 8.1-9.9 eGFR Non- 65.7 > 60 eGFR 84.6 > 60 74 Surgical Pathology 03/09/2010 Surgical Pathology <SEE 75 NOTE> Laboratory test 03/09/2010 Clotest NEGATIVE finding Comp Metabolic 01/27/2010 Sodium 136 mmol/L 135-145 Panel Potassium 4.0 mmol/L 3.5-5.0 Chloride 101 mmol/L 101-111 Co2 (Carbon Dioxide) 29.0 mmol/L 22-32 Anion Gap 6.0 mmol/L 2-11 76 Glucose 93 mg/dL 70-100 77 BUN 15 mg/dL 6-24 Creatinine 0.90 mg/dL 0.50-1.40 One Over Creatinine 1.10 BUN/Creatinine Ratio 16.7 8-20 Calcium 9.8 mg/dL 8.1-9.9 Total Protein 7.5 GM/DL 6.2-8.1 Albumin 4.2 GM/DL 3.6-5.4 Globulin 3.3 GM/DL 2-4 Albumin/Globulin Ratio 1.3 1-3 Bilirubin Total 0.5 mg/dL 0.4-1.5 78 Alkaline Phosphatase 84 U/L 30-110 Alt (SGPT) 19 U/L 14-54 Ast (Sgot) 20 U/L 12-42 eGFR Non- 69.9 > 60 eGFR 84.6 > 60 79 Laboratory test finding 01/27/2010 C Reactive Protein 0.6 mg/dL High Less Than 0.5 CBC With Electronic Diff 01/27/2010 White Blood Count 8.8 CUMM 4.8-10.8 Red Cell Count 4.85 CUMM 4.2-5.4 Hemoglobin 13.6 g/dL 12.0-16.0 Hematocrit 41 % 35-47 Mean Corpuscular Volume 84 um3 79-97 Mean Corpuscular Hemoglob 28 pg 27-31 Mean Corpuscular HGB Cone 33 g/dL 32-36 Redcell Distribution WDTH 14 % 10.5-15 Platelet Count 277 CUMM 150-450 Mean Platelet Volume 7.8 um3 7.4-10.4 Gran % 74.4 % 38-83 Lymph % 15.4 % Low 25-47 Mononuclear % 7.7 % 1-9 Eosinophil % 2.0 % 0-6 Basophil % 0.5 % 0-2 Abs Lymphs 1.4 1.0-4.8 Abs Mononuclear 0.7 0-0.8 Absolute Neutrophil Count 6.6 1.5-7.7 Abs Eosinophils 0.2 0-0.6 Abs Basophils 0 0-0.2 80 Laboratory test finding 01/23/2010 TSH 0.47 MIU/ML 0.34-5.60 Basic Metabolic Panel 01/23/2010 Sodium 139 mmol/L 135-145 Potassium 3.9 mmol/L 3.5-5.0 Chloride 106 mmol/L 101-111 Co2 (Carbon Dioxide) 25.0 mmol/L 22-32 Anion Gap 8.0 mmol/L 2-11 81 Glucose 95 mg/dL 70-100 82 BUN 16 mg/dL 6-24 Creatinine 0.80 mg/dL 0.50-1.40 One Over Creatinine 1.20 BUN/Creatinine Ratio 20.0 8-20 Calcium 8.7 mg/dL 8.1-9.9 eGFR Non- 80.1 > 60 eGFR 96.9 > 60 83 CBC With Electronic Diff 01/16/2010 White Blood Count 8.1 CUMM 4.8-10.8 Red Cell Count 4.82 CUMM 4.2-5.4 Hemoglobin 13.7 g/dL 12.0-16.0 Hematocrit 41 % 35-47 Mean Corpuscular Volume 84 um3 79-97 Mean Corpuscular Hemoglob 28 pg 27-31 Mean Corpuscular HGB Cone 34 g/dL 32-36 Redcell Distribution WDTH 13 % 10.5-15 Platelet Count 314 CUMM 150-450 Mean Platelet Volume 7.9 um3 7.4-10.4 Manual Differential 01/16/2010 Polysegmented Neutrophil 71 % 38-83 Lymphocyte 18 % Low 25-47 Monocyte 8 % 0-13 Eosinophil 2 % 0-6 Atypical Lymph 1 % 0-6 Absolute Neutrophil Count 5.7 RBC Morphology NORMAL Urinalysis W/Microscopic 01/16/2010 Ua Color YELLOW Yellow Appearance-Urine CLEAR Clear Specific [place]ike-Ur 1.021 1.010-1.030 Esterase-Urine 1+ Negative Nitrite NEGATIVE Negative Aampbitecgpe-Yd-ZMI NEGATIVE Negative Protein-Urine NEGATIVE Negative PH-Urine 5.5 5-9 Blood-Urine NEGATIVE Negative Ketones-Urine NEGATIVE Negative Bilirubin-Ur NEGATIVE Negative Glucose-Urine NEGATIVE Negative Hyaline Casts-Urine 0-1 0-2 WBC-Urine 1-5 0-5 RBC-Urine 0-2 0-2 Mucus Urine SMALL None Epith Cells-Ur FEW None Comp Metabolic Panel 01/16/2010 Sodium 138 mmol/L 135-145 Potassium 3.4 mmol/L Low 3.5-5.0 Chloride 105 mmol/L 101-111 Co2 (Carbon Dioxide) 25.0 mmol/L 22-32 Anion Gap 8.0 mmol/L 2-11 84 Glucose 87 mg/dL 70-100 85 BUN 12 mg/dL 6-24 Creatinine 1.00 mg/dL 0.50-1.40 One Over Creatinine 1.00 BUN/Creatinine Ratio 12.0 8-20 Calcium 9.2 mg/dL 8.1-9.9 Total Protein 7.3 GM/DL 6.2-8.1 Albumin 4.3 GM/DL 3.6-5.4 Globulin 3.0 GM/DL 2-4 Albumin/Globulin Ratio 1.4 1-3 Bilirubin Total 0.5 mg/dL 0.4-1.5 86 Alkaline Phosphatase 81 U/L 30-110 Alt (SGPT) 21 U/L 14-54 Ast (Sgot) 25 U/L 12-42 eGFR Non- 61.9 > 60 eGFR 74.9 > 60 87 Laboratory test 01/16/2010 TSH 0.84 MIU/ML 0.34-5.60 finding Urine Culture & 01/16/2010 Urine Culture Susceptibility t <SEE 88 Sensitivi Sensitivi NOTE> Urine Culture Sensitivi NORMAL BERTHA 89 Laboratory test 01/16/2010 Troponin-I 0 NG/ML Low 0.0-0.06 90 finding Surgical Pathology 10/20/2009 Surgical Pathology 91 <SEE NOTE> 1 SEE RESULT BELOW Name: TAMARA STARKS : [address]: Christian Kahn MD Acct: [id number] Unit: [id number] AGE: 61 Location: [facility] Re09/09/17 SEX: F Status: REG REF SPEC: [id number] THIERRY: 09/09/[address]: Berto Kahn MD REQ: [id number] RECD: 09/09/17 STATUS: COMP _ SOURCE: URINE SPDESC: ORDERED: Urine Culture Procedure Result Reported Site Urine Culture Final 09/12/17- 821 ML Organism 1 ESCHERICHIA COLI Helm Count 75-100,000 (Many) CFU/ML Organism 2 STAPHYLOCOCCUS AUREUS Helm Count 1-10,000 (Few) CFU/ML 1. ESCHERICHIA COLI M.I.C. RX --------- ------ Ampicillin 4 S Cefazolin <=4 S Cefepime <=1 S Ceftriaxone <=1 S Ciprofloxacin <=0.25 S Gentamicin <=1 S Levofloxacin <=0.12 S Meropenem <=0.25 S Nitrofurantoin 32 S Tetracycline <=1 S Pipercillin/Tazobactam <=4 S Trimethoprim/Sulfamethoxazole <=20 S Amoxicillin/Clavulanic Acid 4 S Aztreonam <=1 S 2. STAPHYLOCOCCUS AUREUS M.I.C. RX --------- ------ Penicillin >=0.5 R Gentamicin <=0.5 S Linezolid 2 S CONTINUED ON NEXT PAGE DEPARTMENT OF PATHOLOGY, [address] [place] [address] Cleve Bowen M.D. Director [place] # [id number] Patient: TAMARA STARKS [id number] (Continued) Specimen: [id number] Collected: 09/09/17 Received: 09/09/17 (Continued) Procedure Result Reported Site Urine Culture Final (continued) 09/12/17821 2. STAPHYLOCOCCUS AUREUS (continued) M.I.C. RX --------- ------ Nitrofurantoin <=16 S Oxacillin 1 S * Quinupristin/Dalfopristin <=0.25 S Rifampin <=0.5 S Tetracycline <=1 S Doxycycline - Deduced S * Minocycline - Deduced S Trimethoprim/Sulfamethoxazole <=10 S Vancomycin 1 S Imipenem-Deduced S * Ampicillin/Sulbactam-Deduced S Cefazolin-Deduced S * These antibiotics are not available in the [facility] Formulary Contact the Microbiology Department for any additional antibiotic reporting. Contact the Microbiology Department for any additional antibiotic reporting. * - Main Lab . END OF REPORT DEPARTMENT OF PATHOLOGY, [address] [place] [address] Cleve Bowen M.D. Director [facility] # [id number] 2 Because ethnic data is not always readily available, this report includes an eGFR for both -Americans and non- Americans. The National Kidney Disease Education Program (NKDEP) does not endorse the use of the MDRD equation for patients that are not between the ages of 18 and 70, are , have extremes of body size, muscle mass, or nutritional status, or are non- or non-. According to the National Kidney Foundation, irrespective of diagnosis, the stage of the disease is based on the level of kidney function: Stage Description GFR(mL/min/1.73 m(2)) 1 Kidney damage with normal or decreased GFR 90 2 Kidney damage with mild decrease in GFR 60-89 3 Moderate decrease in GFR 30-59 4 Severe decrease in GFR 15-29 5 Kidney failure <15 (or dialysis) 3 Desirable: <150 Borderline High: 150-199 High: 200-499 Very High: >500 4 Desirable: <200 Borderline High: 200-239 High: >239 5 Low: <40 Desirable: 40-60 High: >60 6 Desirable: <100 Near Optimal: 100-129 Borderline High: 130-159 High: 160-189 Very High: >189 7 Because ethnic data is not always readily available, this report includes an eGFR for both -Americans and non- Americans. The National Kidney Disease Education Program (NKDEP) does not endorse the use of the MDRD equation for patients that are not between the ages of 18 and 70, are , have extremes of body size, muscle mass, or nutritional status, or are non- or non-. According to the National Kidney Foundation, irrespective of diagnosis, the stage of the disease is based on the level of kidney function: Stage Description GFR(mL/min/1.73 m(2)) 1 Kidney damage with normal or decreased GFR 90 2 Kidney damage with mild decrease in GFR 60-89 3 Moderate decrease in GFR 30-59 4 Severe decrease in GFR 15-29 5 Kidney failure <15 (or dialysis) 8 [facility] Severe Sepsis and Septic Shock Management Bundle Measure requires all lactic acids initially measuring >2.0 mmol/L be repeated. 9 Because ethnic data is not always readily available, this report includes an eGFR for both -Americans and non- Americans. The National Kidney Disease Education Program (NKDEP) does not endorse the use of the MDRD equation for patients that are not between the ages of 18 and 70, are , have extremes of body size, muscle mass, or nutritional status, or are non- or non-. According to the National Kidney Foundation, irrespective of diagnosis, the stage of the disease is based on the level of kidney function: Stage Description GFR(mL/min/1.73 m(2)) 1 Kidney damage with normal or decreased GFR 90 2 Kidney damage with mild decrease in GFR 60-89 3 Moderate decrease in GFR 30-59 4 Severe decrease in GFR 15-29 5 Kidney failure <15 (or dialysis) 10 Test Performed by: [place] [address] 11 Test Performed by: [place] [address] 12 Test Performed by: [place] [address] 13 FASTING 10 HOUR 14 Desirable <150 Borderline high 150-199 High 200-499 Very High >500 15 Desirable <200 Borderline high 200-239 High >239 16 Low <40 Desirable: 40-60 High: >60 17 Desirable: <100 mg/dL Near Optimal: 100-129 mg/dL Borderline High: 130-159 mg/dL High: 160-189 mg/dL Very High: >189 mg/dL 18 FASTING 10 HOUR 19 [id number] 20 SEE RESULT BELOW Name: TAMARA STARKS : [address]: Raheel Lainez MD Acct: [id number] Unit: [id number] AGE: 60 Location: [facility] Re01/19/16 SEX: F Status: REG REF SPEC: [id number] THIERRY: 01/19/16 [facility] DR: Raheel Lainez MD REQ: [id number] RECD: 01/19/16 STATUS: ALEIDA TUBBS DR: Berto Armendariz MD _ SOURCE: GAS ANTRUM [facility]: ORDERED: Clotest COMMENTS: [id number] Procedure Result Reported Site Clotest Final 01/20/16821 ML Clotest Negative * ML - MAIN LAB ([facility]) . END OF REPORT * ML=Testing performed at Main Lab DEPARTMENT OF PATHOLOGY, [address] [place] [address] Cleve Bowen M.D. Director [facility] # [id number] 21 Because ethnic data is not always readily available, this report includes an eGFR for both -Americans and non- Americans. The National Kidney Disease Education Program (NKDEP) does not endorse the use of the MDRD equation for patients that are not between the ages of 18 and 70, are , have extremes of body size, muscle mass, or nutritional status, or are non- or non-. According to the National Kidney Foundation, irrespective of diagnosis, the stage of the disease is based on the level of kidney function: Stage Description GFR(mL/min/1.73 m(2)) 1 Kidney damage with normal or decreased GFR 90 2 Kidney damage with mild decrease in GFR 60-89 3 Moderate decrease in GFR 30-59 4 Severe decrease in GFR 15-29 5 Kidney failure <15 (or dialysis) 22 Reference Range and Interpretation: TnI (ng/mL) Interpretation Less Than 0.03 ng/mL Not supportive of diagnosis of NV 0.03 - 0.50 ng/mL Indeterminate: suggest serial studies if clinically indicated. Greater than 0.5 ng/mL Consistent with diagnosis of NV 23 Please note: The following may produce a false positive D Dimer test: - Rheumatoid factor greater than 60 IU/ml - Plasma hemoglobin greater than 0.05 gm/dl - Bilirubin greater than 50 mg/dl - Lipids greater than 1000 mg/dl - FDP greater than 20 ug/ml 24 Reference Range and Interpretation: TnI (ng/mL) Interpretation Less Than 0.03 ng/mL Not supportive of diagnosis of NV 0.03 - 0.50 ng/mL Indeterminate: suggest serial studies if clinically indicated. Greater than 0.5 ng/mL Consistent with diagnosis of NV 25 Because ethnic data is not always readily available, this report includes an eGFR for both -Americans and non- Americans. The National Kidney Disease Education Program (NKDEP) does not endorse the use of the MDRD equation for patients that are not between the ages of 18 and 70, are , have extremes of body size, muscle mass, or nutritional status, or are non- or non-. According to the National Kidney Foundation, irrespective of diagnosis, the stage of the disease is based on the level of kidney function: Stage Description GFR(mL/min/1.73 m(2)) 1 Kidney damage with normal or decreased GFR 90 2 Kidney damage with mild decrease in GFR 60-89 3 Moderate decrease in GFR 30-59 4 Severe decrease in GFR 15-29 5 Kidney failure <15 (or dialysis) 26 SEE RESULT BELOW Name: TAMARA STARKS : [address]: Geeta Blake MD Acct: [id number] Unit: [id number] AGE: 59 Location: ED Re06/01/15 SEX: F Status: DEP ER SPEC: [id number] THIERRY: 06/01/151143 [facility] DR: Tran Castillo NP REQ: [id number] RECD: 06/01/15 STATUS: ALEIDA TUBBS DR: Rory Kahn MD _ SOURCE: URINE SPDESC: ORDERED: Urine Culture Procedure Result Reported Site Urine Culture Final 06/03/15- 817 ML Organism 1 ESCHERICHIA COLI Helm Count 75-100,000 (Many) CFU/ML 1. ESCHERICHIA COLI M.I.C. RX --------- ------ Ampicillin >=32 R Cefazolin <=4 S Cefepime <=1 S Ceftriaxone <=1 S Ciprofloxacin <=0.25 S Gentamicin <=1 S Levofloxacin 1 S Meropenem <=0.25 S Nitrofurantoin <=16 S Tetracycline <=1 S Pipercillin/Tazobactam <=4 S Trimethoprim/Sulfamethoxazole <=20 S Amoxicillin/Clavulanic Acid 8 S Aztreonam <=1 S Contact the Microbiology Department for any additional antibiotic reporting. * ML - MAIN LAB ([facility]) . END OF REPORT * ML=Testing performed at Main Lab DEPARTMENT OF PATHOLOGY, [address] [place] [address] Cleve Bowen M.D. Director [facility] # [id number] 27 FASTING 28 Desirable <150 Borderline high 150-199 High 200-499 Very High >500 29 Desirable <200 Borderline high 200-239 High >239 30 Low <40 Desirable: 40-60 High: >60 31 Desirable: <100 mg/dL Near Optimal: 100-129 mg/dL Borderline High: 130-159 mg/dL High: 160-189 mg/dL Very High: >189 mg/dL 32 Test Performed by: [address] [address] Clinical Unit Educator: Jordan Thornton II, M.D., Ph.D. 33 Because ethnic data is not always readily available, this report includes an eGFR for both -Americans and non- Americans. The National Kidney Disease Education Program (NKDEP) does not endorse the use of the MDRD equation for patients that are not between the ages of 18 and 70, are , have extremes of body size, muscle mass, or nutritional status, or are non- or non-. According to the National Kidney Foundation, irrespective of diagnosis, the stage of the disease is based on the level of kidney function: Stage Description GFR(mL/min/1.73 m(2)) 1 Kidney damage with normal or decreased GFR 90 2 Kidney damage with mild decrease in GFR 60-89 3 Moderate decrease in GFR 30-59 4 Severe decrease in GFR 15-29 5 Kidney failure <15 (or dialysis) 34 SEE RESULT BELOW Name: TAMARA STARKS : [address]: Giulia Cedeno MD Acct: [id number] Unit: [id number] AGE: 58 Location: [facility] Re09/07/14 SEX: F Status: [place] [facility] SPEC: [id number] THIERRY: 09/07/14- SUBM DR: Giulia Cedeno MD REQ: [id number] RECD: 09/07/148 STATUS: SOUT _ ORDERED: Jovanny, LEVEL III FINAL DIAGNOSIS Trapezium, right wrist, excision: -- Benign bone and cartilage with degenerative change. PRE-OPERATIVE DIAGNOSIS Osteoarthritis right hand. GROSS DESCRIPTION The specimen is received in formalin labeled, Trapezium Right Wrist, and consists of a 3.8 x 3.2 x 1.2 cm aggregate of horton-pink irregular bone fragments. Bulb Inspector sections, one cassette following decalcification. MICROSCOPIC DESCRIPTION Signed (signature on file) Yolande Sawant MD 1539 END OF REPORT * ML=Testing performed at Main Lab DEPARTMENT OF PATHOLOGY, [address] [place] [address] Cleve Bowen M.D. Director [facility] # [id number] 35 Because ethnic data is not always readily available, this report includes an eGFR for both -Americans and non- Americans. The National Kidney Disease Education Program (NKDEP) does not endorse the use of the MDRD equation for patients that are not between the ages of 18 and 70, are , have extremes of body size, muscle mass, or nutritional status, or are non- or non-. According to the National Kidney Foundation, irrespective of diagnosis, the stage of the disease is based on the level of kidney function: Stage Description GFR(mL/min/1.73 m(2)) 1 Kidney damage with normal or decreased GFR 90 2 Kidney damage with mild decrease in GFR 60-89 3 Moderate decrease in GFR 30-59 4 Severe decrease in GFR 15-29 5 Kidney failure <15 (or dialysis) 36 Reference Range and Interpretation: TnI (ng/mL) Interpretation Less Than 0.03 ng/mL Not supportive of diagnosis of NV 0.03 - 0.50 ng/mL Indeterminate: suggest serial studies if clinically indicated. Greater than 0.5 ng/mL Consistent with diagnosis of NV 37 Because ethnic data is not always readily available, this report includes an eGFR for both -Americans and non- Americans. The National Kidney Disease Education Program (NKDEP) does not endorse the use of the MDRD equation for patients that are not between the ages of 18 and 70, are , have extremes of body size, muscle mass, or nutritional status, or are non- or non-. According to the National Kidney Foundation, irrespective of diagnosis, the stage of the disease is based on the level of kidney function: Stage Description GFR(mL/min/1.73 m(2)) 1 Kidney damage with normal or decreased GFR 90 2 Kidney damage with mild decrease in GFR 60-89 3 Moderate decrease in GFR 30-59 4 Severe decrease in GFR 15-29 5 Kidney failure <15 (or dialysis) 38 Reference Range and Interpretation: TnI (ng/mL) Interpretation Less Than 0.03 ng/mL Not supportive of diagnosis of NV 0.03 - 0.50 ng/mL Indeterminate: suggest serial studies if clinically indicated. Greater than 0.5 ng/mL Consistent with diagnosis of NV 39 Because ethnic data is not always readily available, this report includes an eGFR for both -Americans and non- Americans. The National Kidney Disease Education Program (NKDEP) does not endorse the use of the MDRD equation for patients that are not between the ages of 18 and 70, are , have extremes of body size, muscle mass, or nutritional status, or are non- or non-. According to the National Kidney Foundation, irrespective of diagnosis, the stage of the disease is based on the level of kidney function: Stage Description GFR(mL/min/1.73 m(2)) 1 Kidney damage with normal or decreased GFR 90 2 Kidney damage with mild decrease in GFR 60-89 3 Moderate decrease in GFR 30-59 4 Severe decrease in GFR 15-29 5 Kidney failure <15 (or dialysis) 40 Normal Range 180 to 914 Indeterminate Range 145 to 180 Deficient Range <145 41 RUN DATE: 12/03/13 [facility] LAB LIVE PAGE 1 RUN TIME: [address] [place], [place] [address] Specimen Inquiry Name: TAMARA STARKS : [address]: Raheel Lainez MD Acct: [id number] Unit: [id number] AGE: 57 Location: ENDO Re12/02/13 SEX: F Status: REG REF SPEC: [id number] THIERRY: 12/02/13- SUBM DR: Raheel Lainez MD REQ: [id number] RECD: 12/02/13183 STATUS: BAUDILIO TUBBS DR: Berto Armendariz MD _ ORDERED: LEVEL IV/2 FINAL DIAGNOSIS 1. Colon, cecum, biopsy: A. Intestinal mucosa with benign lymphoid aggregate. B. No adenomatous change identified. 2. Colon, 20 cm., biopsy: A. Tubular adenoma. B. No high grade dysplasia or malignancy. CLINICAL HISTORY Abdominal pain, nausea, and weight loss for screening colonoscopy. POST-OPERATIVE DIAGNOSIS Screening colonoscopy to terminal ileum, prep good. Two small polyps removed with jumbo biopsy forceps. GROSS DESCRIPTION 1. The specimen is received in formalin labeled Tamara Toro, Biopsy Cecal Polyp and consists of a 1.1 x 0.2 x 0.1 cm. horton-pink, irregular to elongate soft tissue fragment. Submitted entirely, one cassette. 2. The specimen is received in formalin labeled Tamara Toro, Biopsy Colon Polyp at 20 cm. and consists of a 0.3 x 0.2 x 0.2 cm. horton-pink, polypoid soft tissue fragment. Submitted entirely, one cassette. CONTINUED ON NEXT PAGE * ML=Testing performed at Main Lab DEPARTMENT OF PATHOLOGY, [facility] [employer] [place], [place] [address] Cleve Bowen M.D. Director [facility] # [id number] RUN DATE: 12/03/13 [facility] LAB LIVE PAGE 2 RUN TIME: [address] [place], [place] [address] Specimen Inquiry Patient: TAMARA STARKS [id number] (Continued) GROSS DESCRIPTION (Continued) Signed (signature on file) Cleve Bowen MD 1521 END OF REPORT * ML=Testing performed at Main Lab DEPARTMENT OF PATHOLOGY, [facility] [employer] [place], [place] [address] Cleve Bowen M.D. Director [facility] # [id number] 42 It is recognized that currently available assays for the detection of antibodies to HIV-1 and/or HIV-2 may not detect all infected individuals. HIV antibodies may be undetectable in some stages of the infection and in some clinical conditions. The performance of this assay has not been established for populations of infants or children. Assayed by Chemiluminescence Microparticle Immunoassay on the Siemens Advia Centaur CP. Values obtained with different methods or kits cannot be used interchangeably.The diagnostic specificity of the ADVIA Centaur 1/O/2 Enhanced assay in the low risk population was 99.90% (6052/6058) with a 95% confidence interval of 99.78 to 99.96%. 43 Because ethnic data is not always readily available, this report includes an eGFR for both -Americans and non- Americans. The National Kidney Disease Education Program (NKDEP) does not endorse the use of the MDRD equation for patients that are not between the ages of 18 and 70, are , have extremes of body size, muscle mass, or nutritional status, or are non- or non-. According to the National Kidney Foundation, irrespective of diagnosis, the stage of the disease is based on the level of kidney function: Stage Description GFR(mL/min/1.73 m(2)) 1 Kidney damage with normal or decreased GFR 90 2 Kidney damage with mild decrease in GFR 60-89 3 Moderate decrease in GFR 30-59 4 Severe decrease in GFR 15-29 5 Kidney failure <15 (or dialysis) 44 Normal Range 180 to 914 Indeterminate Range 145 to 180 Deficient Range <145 45 PT IS FASTING 46 Because ethnic data is not always readily available, this report includes an eGFR for both -Americans and non- Americans. The National Kidney Disease Education Program (NKDEP) does not endorse the use of the MDRD equation for patients that are not between the ages of 18 and 70, are , have extremes of body size, muscle mass, or nutritional status, or are non- or non-. According to the National Kidney Foundation, irrespective of diagnosis, the stage of the disease is based on the level of kidney function: Stage Description GFR(mL/min/1.73 m(2)) 1 Kidney damage with normal or decreased GFR 90 2 Kidney damage with mild decrease in GFR 60-89 3 Moderate decrease in GFR 30-59 4 Severe decrease in GFR 15-29 5 Kidney failure <15 (or dialysis) 47 Desirable <150 Borderline high 150-199 High 200-499 Very High >500 48 Desirable <200 Borderline high 200-239 High >239 49 Low <40 Desirable: 40-60 High: >60 50 Desirable <100 Near Optimal 100-129 Borderline high 130-159 High 160-189 Very High >189 51 RUN DATE: 05/25/13 [facility] LAB LIVE PAGE 1 RUN TIME: [address] [place], [place] [address] Specimen Inquiry Name: DARION TOROTAMARA : [address]: Raheel Lainez MD Acct: [id number] Unit: [id number] AGE: 57 Location: ENDO Re05/22/13 SEX: F Status: REG REF SPEC: [id number] THIERRY: 05/22/13- SUBM DR: Raheel Lainez MD REQ: [id number] RECD: 05/22/13-1218 STATUS: BAUDILIO TUBBS DR: Kandis Joseph MD _ ORDERED: LEVEL IV/2 FINAL DIAGNOSIS 1. Esophagus, biopsies: A. 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 B. Reactive glandular epithelial changes. C. No evidence of neoplasia identified. 2. Colon, 25 cm., biopsy: Inflammatory, retention polyp. CLINICAL HISTORY Anal cancer for sigmoidoscopy. Nausea for EGD POST-OPERATIVE DIAGNOSIS Esophagus slight irregularity to GE junction (biopsied), negative erosion, stricture. Stomach - intact fundoplication valve, normal gastric mucosa. Duodenal bulb to third portion. Flexible sigmoidoscopy to 60 cm, small polyp removed, persistent fissure otherwise normal. Normal EGD (part fundoplication), small sigmoid colon polyp removed. GROSS DESCRIPTION 1. The specimen is received in formalin labeled Tamara Toro, Esophagus Biopsies and consists of two, horton-pink, irregular, soft tissue fragments measuring 0.3 x 0.2 x 0.2 cm. and 0.4 x 0.2 x 0.1 cm. Submitted entirely, one cassette. 2. The specimen is received in formalin labeled Tamara Espinosa Cobon, Colon Polyp at 25 cm. and consists of two, horton-red, irregular, soft tissue fragments averaging 0.3 x 0.2 x 0.1 cm. Submitted entirely, one cassette. CONTINUED ON NEXT PAGE * ML=Testing performed at Main Lab DEPARTMENT OF PATHOLOGY, [facility] [employer] [place] [address] Cleve Bowen M.D. Director [facility] Permit #[id number] RUN DATE: 05/25/13 [facility] LAB LIVE PAGE 2 RUN TIME: [address] [facility] [employer] [place], [place] [address] Specimen Inquiry Patient: TAMARA STARKS [id number] (Continued) GROSS DESCRIPTION (Continued) Signed (signature on file) Cleve Bowen MD 1641 END OF REPORT * ML=Testing performed at Main Lab DEPARTMENT OF PATHOLOGY, [facility] [employer] [place], [place] [address] Cleve Bowen M.D. Director [facility] Permit #[id number] 52 2+ (>10-30 /hpf) 53 RUN DATE: 02/14/12 [facility] LAB LIVE PAGE 1 RUN TIME: [address] [facility] [employer] [place], [place] [address] Specimen Inquiry Name: TAMARA STARKS : [address]: Parmjit Durbin MD Acct: [id number] Unit: [id number] AGE: 56 Location: ED Re02/12/12 SEX: F Status: DEP ER SPEC: [id number] THIERRY: 02/12/[address]: Parmjit Durbin MD REQ: [id number] RECD: 02/12/12 STATUS: ALEIDA TUBBS DR: Christiano Garcia MD _ SOURCE: URINE [facility]: ORDERED: Urine Culture Procedure Result Verified Site Urine Culture Final 02/14/12- 1221 ML Organism 1 STREP GROUP B Helm Count >100,000 (Many) CFU/ML Organism 2 NORMAL BERTHA Helm Count 10-25,000 (Moderate) CFU/ML Susceptibility testing of penicillins and other B-lactams approved by FDA for treatment of Streptococcus pyogenes (Group A Strep) and Streptococcus agalactiae (Group B Strep) is not necessary for clinical purposes and need not be done routinely, since as with vancomycin, resistant strains have not been recognized. (CLSI J907-Y12;p.66) Positive isolates will be saved for one week. Please call the Microbiology Laboratory if further susceptibility testing is needed. END OF REPORT * ML=Testing performed at Main Lab DEPARTMENT OF PATHOLOGY, [address] [place] [address] Cleve Bowen M.D. Director [facility] Permit #[id number] 54 Because ethnic data is not always readily available, this report includes an eGFR for both -Americans and non- Americans. The National Kidney Disease Education Program (NKDEP) does not endorse the use of the MDRD equation for patients that are not between the ages of 18 and 70, are , have extremes of body size, muscle mass, or nutritional status, or are non- or non-. According to the National Kidney Foundation, irrespective of diagnosis, the stage of the disease is based on the level of kidney function: Stage Description GFR(mL/min/1.73 m(2)) 1 Kidney damage with normal or decreased GFR 90 2 Kidney damage with mild decrease in GFR 60-89 3 Moderate decrease in GFR 30-59 4 Severe decrease in GFR 15-29 5 Kidney failure <15 (or dialysis) 55 Reference Range and Interpretation: TnI (ng/ml) Interpretation Less Than 0.06 ng/mL Not supportive of diagnosis of NV 0.06 - 0.50 ng/ml Indeterminate: suggest serial studies if clinically indicated. Greater than 0.5 ng/mL Consistent with diagnosis of NV 56 Test Performed by: [facility] Dpt of Lab Med and Pathology [address] [place] [address] Clinical Unit Educator: Scotty Bishop III, M.D. 57 -- REFERENCE VALUE -- 25-HYDROXY D TOTAL (D2+D3) Optimum levels in the normal population are 25-80 Test Performed by: [facility] D[facility] of Lab Med and Pathology [address] [place] [address] Clinical Unit Educator: Scotty Bishop III, M.D. 58 CHOLESTEROL INTERPRETATION: Desirable: Less than 200 MG/DL Borderline-High Risk: 200-239 MG/DL High-Risk: 240 MG/DL and over 59 HDL INTERPRETATION: Undesirable: High Risk: Less than 40 MG/DL Desirable: Low Risk: Greater than 60 MG/DL 60 LDL INTERPRETATION: Low Risk Optimal Level: LDL Less than 100 MG/DL Near or Above Optimal: LDL 100-129 MG/DL Borderline High Risk: LDL 130-159 MG/DL High Risk: LDL 160-189 MG/DL Very High Risk: LDL Greater than 189 MG/DL 61 Anion gap measurement may be of limited value in the presence of any alkalosis, especially in a combined acid base disorder. . 62 A metabolite of Naproxen, O-desmethylnaproxen, has been shown to interfere with the Jendrassik-Jr method for measuring total bilirubin. Samples from patients who have taken Naproxen have shown spurious elevation in total bilirubin levels. 63 Because ethnic data is not always readily available, this report includes an eGFR for both -Americans and non- Americans. The National Kidney Disease Education Program (NKDEP) does not endorse the use of the MDRD equation for patients that are not between the ages of 18 and 70, are , have extremes of body size, muscle mass, or nutritional status, or are non- or non-. According to the National [employer], irrespective of diagnosis, the stage of the disease is based on the level of kidney function: Stage Description GFR(mL/min/1.73 m(2)) 1 Kidney damage with normal or decreased GFR 90 2 Kidney damage with mild decrease in GFR 60-89 3 Moderate decrease in GFR 30-59 4 Severe decrease in GFR 15-29 5 Kidney failure <15 (or dialysis) 64 Lymphopenia % 65 CHOLESTEROL INTERPRETATION: Desirable: Less than 200 MG/DL Borderline-High Risk: 200-239 MG/DL High-Risk: 240 MG/DL and over 66 HDL INTERPRETATION: Undesirable: High Risk: Less than 40 MG/DL Desirable: Low Risk: Greater than 60 MG/DL 67 LDL INTERPRETATION: Low Risk Optimal Level: LDL Less than 100 MG/DL Near or Above Optimal: LDL 100-129 MG/DL Borderline High Risk: LDL 130-159 MG/DL High Risk: LDL 160-189 MG/DL Very High Risk: LDL Greater than 189 MG/DL 68 Anion gap measurement may be of limited value in the presence of any alkalosis, especially in a combined acid base disorder. . 69 A metabolite of Naproxen, O-desmethylnaproxen, has been shown to interfere with the [place] method for measuring total bilirubin. Samples from patients who have taken Naproxen have shown spurious elevation in total bilirubin levels. 70 Because ethnic data is not always readily available, this report includes an eGFR for both -Americans and non- Americans. The National Kidney Disease Education Program (NKDEP) does not endorse the use of the MDRD equation for patients that are not between the ages of 18 and 70, are , have extremes of body size, muscle mass, or nutritional status, or are non- or non-. According to the National Kid[employer] Foundation, irrespective of diagnosis, the stage of the disease is based on the level of kidney function: Stage Description GFR(mL/min/1.73 m(2)) 1 Kidney damage with normal or decreased GFR 90 2 Kidney damage with mild decrease in GFR 60-89 3 Moderate decrease in GFR 30-59 4 Severe decrease in GFR 15-29 5 Kidney failure <15 (or dialysis) 71 Cell culture testing can be performed to confirm negative test results and to assist in detecting other viruses that can produce similar clinical symptoms. Please notify Microbiology Lab if further testing is desired. 72 NEGATIVE BY IMMUNOASSAY NEGATIVE BY IMMUNOASSAY 73 Anion gap measurement may be of limited value in the presence of any alkalosis, especially in a combined acid base disorder. . 74 Because ethnic data is not always readily available, this report includes an eGFR for both -Americans and non- Americans. The National Kidney Disease Education Program (NKDEP) does not endorse the use of the MDRD equation for patients that are not between the ages of 18 and 70, are , have extremes of body size, muscle mass, or nutritional status, or are non- or non-. According to the National Kidney Foundation, irrespective of diagnosis, the stage of the disease is based on the level of kidney function: Stage Description GFR(mL/min/1.73 m(2)) 1 Kidney damage with normal or decreased GFR 90 2 Kidney damage with mild decrease in GFR 60-89 3 Moderate decrease in GFR 30-59 4 Severe decrease in GFR 15-29 5 Kidney failure <15 (or dialysis) 75 ---- RUN DATE: 03/13/10 [facility] NMI LIVE PAGE 1 RUN TIME: 1144 Specimen Inquiry RUN USER: INTERFACE -- Name: TAMARA STARKS Status: REG REF Re03/09/10 Age/Sex: 54/F Unit#: [id number] Location: [address] [place] [address]. : [birth year] -- Specimen: [id number] SOUT Spec Date: 03/09/[address]: Raheel graham MD Spec Type: SURGICAL P Received: 03/10/10-1966 Copies to: Christiano howe MD SPECIMEN BIOPSY DISTAL ESOPHAGUS HISTORY POST-OP DIAGNOSIS: Probable Douglas's, hiatal hernia. 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 Stomach shows 2-3 cm. hiatal hernia, no ulcer. Duodenum normal bulb to third portion. Nausea (prior history of fundoplication for GERD) GROSS DESCRIPTION Specimen received in formalin labelled Tamara Toro, Esophagus, Distal and consists of multiple, horton-davis, soft tissue fragments measuring 0.5 x 0.3 x 0.2 cm. in aggregate. Submitted entirely, one cassette. DIAGNOSIS Distal esophagus, biopsy: A) Gastroesophageal transition zone mucosa with mild reflux esophagitis. B) Chronic inflammation with reactive glandular epithelial changes. C) No goblet cell metaplasia or dysplasia identified. Signed Electronically by: CLEVE BOWEN MD 03/13/10 1143 -- -- DEPARTMENT OF PATHOLOGY, [address] [place] [address] [facility] Permit #[id number] Cleve Bowen M.D. Director Randal Dumont M.D. Wildlife Management Professor Dir miller -- 76 Anion gap measurement may be of limited value in the presence of any alkalosis, especially in a combined acid base disorder. . 77 Note change in reference range as of 11/06/07. The change was based on recommendations from the [place] [employer]. 78 A metabolite of Naproxen, O-desmethylnaproxen, has been shown to interfere with the [place] method for measuring total bilirubin. Samples from patients who have taken Naproxen have shown spurious elevation in total bilirubin levels. 79 Because ethnic data is not always readily available, this report includes an eGFR for both -Americans and non- Americans. The National Kidney Disease Education Program (NKDEP) does not endorse the use of the MDRD equation for patients that are not between the ages of 18 and 70, are , have extremes of body size, muscle mass, or nutritional status, or are non- or non-. According to the National Kidney Foundation, irrespective of diagnosis, the stage of the disease is based on the level of kidney function: Stage Description GFR(mL/min/1.73 m(2)) 1 Kidney damage with normal or decreased GFR 90 2 Kidney damage with mild decrease in GFR 60-89 3 Moderate decrease in GFR 30-59 4 Severe decrease in GFR 15-29 5 Kidney failure <15 (or dialysis) 80 Lymphopenia % 81 Anion gap measurement may be of limited value in the presence of any alkalosis, especially in a combined acid base disorder. . 82 Note change in reference range as of 11/06/07. The change was based on recommendations from the [place] [employer]. 83 Because ethnic data is not always readily available, this report includes an eGFR for both -Americans and non- Americans. The National Kidney Disease Education Program (NKDEP) does not endorse the use of the MDRD equation for patients that are not between the ages of 18 and 70, are , have extremes of body size, muscle mass, or nutritional status, or are non- or non-. According to the National Kidney Foundation, irrespective of diagnosis, the stage of the disease is based on the level of kidney function: Stage Description GFR(mL/min/1.73 m(2)) 1 Kidney damage with normal or decreased GFR 90 2 Kidney damage with mild decrease in GFR 60-89 3 Moderate decrease in GFR 30-59 4 Severe decrease in GFR 15-29 5 Kidney failure <15 (or dialysis) 84 Anion gap measurement may be of limited value in the presence of any alkalosis, especially in a combined acid base disorder. . 85 Note change in reference range as of 11/06/07. The change was based on recommendations from the [place] [employer]. 86 A metabolite of Naproxen, O-desmethylnaproxen, has been shown to interfere with the [place] method for measuring total bilirubin. Samples from patients who have taken Naproxen have shown spurious elevation in total bilirubin levels. 87 Because ethnic data is not always readily available, this report includes an eGFR for both -Americans and non- Americans. The National Kidney Disease Education Program (NKDEP) does not endorse the use of the MDRD equation for patients that are not between the ages of 18 and 70, are , have extremes of body size, muscle mass, or nutritional status, or are non- or non-. According to the National Kidney Foundation, irrespective of diagnosis, the stage of the disease is based on the level of kidney function: Stage Description GFR(mL/min/1.73 m(2)) 1 Kidney damage with normal or decreased GFR 90 2 Kidney damage with mild decrease in GFR 60-89 3 Moderate decrease in GFR 30-59 4 Severe decrease in GFR 15-29 5 Kidney failure <15 (or dialysis) 88 Susceptibility testing of penicillins and other B-lactams approved by FDA for treatment of Streptococcus pyogenes (Group A Strep) and Streptococcus agalactiae (Group B Strep) is not necessary for clinical purposes and need not be done routinely, since as with vancomycin, resistant strains have not been recognized. (CLSI L252-T92;p.66) Positive isolates will be saved for one week. Please call the Microbiology Laboratory if further susceptibility testing is needed. 89 50^25-50,000 ORGANISMS/ML (MODERATE)^CCU 90 New Reference Range and Interpretation effective 12/19/2001 TnI (ng/ml) INTERPRETATION Less Than 0.06 ng/mL NOT SUPPORTIVE OF DIAGNOSIS OF [place] 0.06 - 0.50 ng/ml INDETERMINATE: SUGGEST SERIAL STUDIES IF CLINICALLY INDICATED. Greater than 0.5 ng/mL CONSISTENT WITH DIAGNOSIS OF [place] . 91 ---- RUN DATE: 10/24/09 [facility] NMI LIVE PAGE 1 RUN TIME: 1621 Specimen Inquiry RUN USER: INTERFACE -- Name: TAMARA STARKS Status: REG REF Re10/20/09 Age/Sex: 53/F Unit#: [id number] Location: [facility] : 59 -- Specimen: [id number] SOUT Spec Date: 10/20/[address]: Sanjeev anton MD Spec Type: SURGICAL P Received: 10/21/09-1009 Copies to: Alicia bates MD SPECIMEN ABDOMINAL MASS HISTORY CLINICAL INFORMATION: Present many years. GROSS DESCRIPTION Specimen received in formalin labelled Tamara Toro, Abdominal Mass and consists of a lobulated fragment of adipose tissue measuring 4.0 x 4.0 x 3.0 cm. Specimen is inked black, serially sectioned. Cut sections reveal a homogeneous yellow appearance. No areas of hemorrhage or necrosis are seen. Bulb Inspector sections, three cassettes. DIAGNOSIS Abdominal mass, excision: Mature adipose tissue compatible with lipoma. Signed Electronically by: CLEVE BOWEN MD 10/24/09 1620 -- -- DEPARTMENT OF PATHOLOGY, [address] [place] [address] [facility] Permit #[id number] Cleve Bowen M.D. Director Randal Dumont M.D. Wildlife Management Professor Dir angela -- Procedures Date CPT Code Description Status 07/17/2017 15904 ECHO Transthorasic Realtime 2D W Doppler & Color Flow Completed Hosp 07/17/2017 46667 Treadmill Interp/Report Only Completed 07/17/2017 19858 Stress Test Supervsn W/Out I/R Completed 07/17/2017 39393 EKG, Interpretation Only Completed 05/20/2017 79694 Excision Tumor Soft Tissue Upper Arm/Elbow Subcutaneous Completed < 3 CM 05/20/2017 78196 Excision Tumor Soft Tissue Abdominal Wall Subcutaneous Completed 3 CM Or > 05/15/2017 Mammogram Completed 03/01/2017 82311 Anoscopy Completed 11/09/2016 48348 Stress Test Completed 11/09/2016 16291 Myocardial Perfusion Imaging Tomographic (Spect) Completed Multiple Studies 11/05/2016 94883 Stress Test Completed 06/06/2016 46859 EKG Tracing & Interpretation Completed 05/14/2016 Mammogram Completed 02/17/2016 40807 Anoscopy Completed 10/31/2015 92805 Inject/Drain Joint/Bursa Major W/O US Completed 07/11/2015 82635 Inject/Drain Joint/Bursa Major W/O US Completed 05/13/2015 Mammogram Completed 09/07/2014 40390 Arthroplasty Interposition Intercarpal Or Completed Carpometacarpal JTS 09/07/2014 57980 Dequervains-Tendon Sheath Incision/Extensor Completed Sheath,Wrist 05/06/2014 Mammogram Completed 04/08/2014 Bone Mineral Density Test Completed 12/02/2013 Colonoscopy Completed 11/19/2013 98294 Inject/Drain Joint/Bursa Small W/O US Completed 04/24/2013 Mammogram Completed 10/16/2012 88788 Inject/Drain Joint/Bursa Small W/O US Completed 09/29/2012 97565 Rad Exam; Wrist, Comp, Min 3 Views Completed 05/12/2012 55465 Inject/Drain Joint/Bursa Major W/O US Completed 09/12/2011 39668 Rad Exam; Knee, Ap&L Completed 09/12/2011 48223 Xray Knee 3 Views Completed 05/23/2011 Bone Mineral Density Test Completed 09/15/2010 95681 Arthroscopy,Unlisted Procedure Completed 09/15/2010 25267 Arthroscopy,Shoulder Decompression Of Subacromial Space Completed W/Acromio 09/15/2010 99630 Arthroscopy Shoulder Debridement Limited Completed 09/05/2010 03740 EKG Tracing & Interpretation Completed 01/16/2010 78130 EKG Tracing & Interpretation Completed Encounters Type Date Location Provider CPT E/M Dx Office Visit 07/17/2017 Miguel Angel Severino,BETHANY Burch 09569 R07.2 11:59a Hospitalists K31.84 I10 C21.0 Office Visit 07/16/2017 11:58a Miguel Angel Severino,BETHANY Burch 91769 R07.2 Hospitalists K31.84 I10 C21.0 Office Visit 06/07/2017 9:40a [facility] Internal Medicine Berto Kahn, 35462 R42 - Tbjonh Castle M.D.,FACP K58.2 Office Visit 05/13/2017 10:15a [facility] [place], [address] D17.[address] [facility] FACS D17.1 Office Visit 04/02/2017 8:30a [facility] Internal Medicine Berto Kahn, 31823 L30.9 - Sophie Davidson,FACP T88.7xxA Z23 Office Visit 03/01/2017 2:15p [facility] Savage Vargas, 09638 C21.[address] [facility] Office Visit 09/07/2016 10:00a [facility] Internal Medicine Berto Kahn, 77326 Z00.01 - Tbjonh Castle M.D.,FACP R07.9 Z12.31 E89.0 I10 Office Visit 07/20/2016 4:20p [facility] Internal [place] [address] J01.90 [place] R04.0 Office Visit 06/06/2016 10:00a [facility] Internal Medicine - Trevor Waterman, 30293 R51 Sonu Davidson R07.9 Office Visit 03/26/2016 9:45a [facility] [place], [address] D17.[address] [facility] FACS Office Visit 10/11/2015 8:00a [facility] Internal Medicine Berto Kahn, 45525 K20.9 - Sophie Davidson,FACP M17.12 Office Visit 08/01/2015 11:45a [facility] Yolande Hsu, 44516 M17.12 Of Radha AGUILERA S83.412D Office Visit 07/11/2015 9:30a [facility] Mellisa Hurley M.D. 71349 M25.562 Radha M25.462 M17.12 S83.412A Office Visit 04/15/2015 3:40p [facility] [place] [address] J01.10 Sophie S16.1xxA R51 Office Visit 04/01/2015 12:40p [facility] Internal Medicine Kandis Joseph M.D. 23686 R10.13 - Sophie Office Visit 12/31/2014 8:00a [facility] Internal Medicine BertoAmparo Kahn, 87322 Z00.00 - Isaias Castle M.D.,FACP Z85.048 J43.9 E03.9 R35.0 Z23 Office Visit 08/30/2014 8:10a [facility] Giulia Cedeno, 80140 715.14 Radha Davidson Office Visit 05/16/2014 9:08a [facility] Sherrie Laureano, 01359 789.06 Assoc, Hospitalists 787.02 154.3 V15.29 Office Visit 05/06/2014 1:00p [facility] [place] [address] 782.1 Sophie Office Visit 02/18/2014 3:40p [facility] Internal Medicine - Victoria Carmona, 42462 783.21 Sophie N.P. 244.0 281.9 789.06 V04.81 Office Visit 11/19/2013 4:00p [facility] Giulia Cedeno, 86533 715.14 Of Radha Davidson Office Visit 10/16/2013 1:00p [facility] Internal Medicine Berto Kahn, 18675 V70.0 - Sophie Davidson,FACP 244.0 V73.89 783.21 789.06 716.94 Office Visit 07/15/2013 2:00p [facility] Internal Medicine Berto Kahn, 57756 719.44 - Sophie Davidson,FACP 719.46 154.3 Office Visit 10/16/2012 4:00p [facility] Giulia Cedeno, 67829 716.14 Of Radha Davidson 716.94 719.44 Office Visit 06/30/2012 1:15p [facility] Donte Plummer M.D. 13656 716.96 Of C.MZainab Office Visit 05/12/2012 1:00p [facility] Jose Lunsford 48962 836.0 Of C.Oliva Castro 716.96 727.04 Office Visit 09/12/2011 1:30p [facility] Of Donte Plummer M.D. 75004 716.96 C.M.A. 836.0 Office Visit 06/04/2011 10:40a [employer] Internal Medicine [facility] 28092 401.1 Sophie Davidson 493.00 530.11 311 719.46 327.23 Office Visit 01/30/2011 9:00a DO Not Use [employer] Operator AT Christiano Garcia M.D. 92189 401.1 [place] 244.0 733.00 719.46 272.2 296.82 v04.81 Office Visit 11/22/2010 4:00p DO Not Use Electric Accounting Machine Operator AT [facility], 96885 357.4 Izzy Deleon.Jesus Office Visit 10/03/2010 4:00p DO Not Use [employer] Machine Operator AT [facility], 49800 535.00 Izzy M.DAnn Office Visit 09/05/2010 1:00p DO Not Use Electric Account[employer] Machine Operator AT Victoria Mathew, N.P. 67791 V72.84 [facility] 401.1 493.00 244.0 Office Visit 08/29/2010 3:45p [facility] Marcus Monroe M.D. 11688 840.4 C.M.A. 726.12 Office Visit 08/21/2010 2:40p DO Not Use [employer] Account[employer] Machine Operator AT Christiano Garcia M.D. 37515 840.6 [place] 789.01 Office Visit 07/17/2010 2:00p DO Not Use Electric Accounting Machine Operator AT [facility], 21111 V72.62 Izzy Davidson 401.1 493.00 722.93 719.41 Office Visit 06/21/2010 11:40a DO Not Use [employer] Accounting Machine Operator AT [facility], 06215 722.93 Izzy M.DAnn Office Visit 03/28/2010 4:00p DO Not Use [employer] Account[employer] Machine Operator AT [facility], 23405 401.1 Izzy Deleon.Jesus 244.0 530.11 493.00 296.82 278.00 V04.81 Office Visit 01/23/2010 8:20a DO Not Use Electric Accounting Machine Operator AT [facility], 83932 535.40 Izzy Deleon.Jesus 276.8 722.93 244.0 Office Visit 01/16/2010 3:20p DO Not Use Electric Accounting Machine Operator AT Christiano Garcia M.D. 27913 458.9 [place] Office Visit 12/01/2009 1:20p DO Not Use Electric Accounting Machine Operator AT Christiano Garcia M.D. 80913 401.1 [place] 244.0 530.11 296.82 Office Visit 09/29/2009 9:00a DO Not Use Electric Accounting [place] [address] 296.82 [facility] 244.0 493.00 530.11 553.8 Plan of Care Future Appointment(s):12/11/2017 8:00 am - ARTEMIO Miller at [facility] Internal Medicine - [address]/05/2017 - Berto Kahn M.D.,FACPG06.1 Intraspinal abscess and granulomaNew Xrays:CT Abd/Pel WComments:Discussed the combination of back pain and fever is a big concern for possible spinal infection. Please complete bloodwork as soon as possible. You may begin taking a pain medication for relief.E03.9 Hypothyroidism, unspecifiedComments:Please continue taking Levothyroxine as prescribed for hypothyroidism.N10 Acute pyelonephritisNew Xrays :CT Abd/Pel WComments:Discussed the combination of back pain and fever is a big concern for possible kidney infection. A urinalysis was completed in the office today. The urine results show you have an infection, therefore,please begin Ciprofloxacin antibiotic treatment as directed. Please make sure you complete the full antibiotic treatment to the end. If your symptoms continue to persist, please give us a call. Please receive CT of your abdomen and pelvis for further investigation of your symptoms.
[2017-11-05 20:07] LABS: Urine Appearance Clear; Urine Blood 1+ (Negative); Urine Color Yellow; Urine Ketones Negative (Negative); Urine Protein Negative (Negative); Urine Red Blood Cell Trace(0-2/hpf) (Absent); Urine Specific Gravity 1.014 (1.010-1.030); Urine Urobilinogen Negative (Negative); Urine White Blood Cell Trace(0-5/hpf) (Absent)
[2017-11-05] MEDS ORDERED: HYDROcodone/ACETAMIN 5-325 MG* 1 TAB PO ONE (20:55)
[2017-11-05] MEDS ORDERED: predniSONE TAB* 20 MG PO ONE (20:56)
--- NOTE | 2017-11-05 21:02 | ED ---
Back Pain - HPI Summary HPI Summary: Patient sent by PCP for evaluation of possible pyelonephritis. Patient complains of bilateral lower back pain radiating to bilateral lower abdomen starting this morning. Patient states she had fever 102.6 at PCP. Back pain described as constant, bilateral, radiating to buttocks, sharp, increased pain with walking. Improves with nothing. States new onset pain that she has history of chronic back pain. Denies trauma, history of kidney stones, fever, cough, sore throat, CP, SOB, N/V/D, change in urine or BM. Patient eating and drinking normally. Denies urinary retention, incontinence, radiation of pain down legs. Denies antipyretic today. Medical conditions or hypothyroid, migraines, HTN, asthma, osteoarthritis, COPD. Abdominal/pelvic surgical history is partial as directed me, cholecystectomy - History of Current Complaint Chief Complaint: EDBackInjuryPain Stated Complaint: LOWER BACK PAIN Time Seen by Provider: 11/05/17 18:39 Hx Obtained From: Patient Onset/Duration: Sudden Onset Onset/Duration: Started Hours Ago Timing: Constant Back Pain Location: Is Diffuse Severity Initially: Moderate Severity Currently: Moderate Pain Intensity: 8 Pain Scale Used: 0-10 Numeric Character: Sharp Aggravating Symptom(s): Movement, Walking Alleviating Symptom(s): Rest, Position Associated Signs And Symptoms: Positive: Abdominal Pain - Allergies/Home Medications Allergies/Adverse Reactions: Allergies Allergy/AdvReac Type Severity Reaction Status Date / Time chocolate flavor Allergy GI Upset Verified 11/05/17 18:20 ketorolac [From Toradol] Allergy Rash Verified 11/05/17 18:20 oxycodone Allergy Tingling Verified 11/05/17 18:20 PMH/Surg Hx/FS Hx/Imm Hx Endocrine/Hematology History: Reports: Hx Thyroid Disease Denies: Hx Diabetes, Hx Systemic Lupus Erythematosus Cardiovascular History: Reports: Hx Angina, Hx Hypercholesterolemia - HLD, Hx Hypertension, Hx Rheumatic Fever - A CHILD, Other Cardiovascular Problems/ Disorders - 2 caths Denies: Hx Congestive Heart Failure, Hx Coronary Artery Disease, Hx Myocardial Infarction, Hx Pacemaker/ICD, Hx Valvular Heart Disease Respiratory History: Reports: Hx Asthma - PRN INHALER, Hx Chronic Obstructive Pulmonary Disease (COPD), Hx Pulmonary Embolism - HX OF 1979, Other Respiratory Problems/Disorders - COPD GI History: Reports: Hx Gastroesophageal Reflux Disease, Hx Hiatal Hernia, Other GI Disorders - ANAL CA Denies: Hx Ulcer History: Denies: Hx Dialysis, Hx Renal Disease Musculoskeletal History: Reports: Hx Arthritis - CHEST,SPINE AND HANDS, Hx Fibromyalgia, Hx Osteoporosis, Other Musculoskeletal History - osteoporosis, FIBROMYALGIA Denies: Hx Rheumatoid Arthritis Sensory History: Reports: Hx Contacts or Glasses - READING GLASSES Denies: Hx Hearing Aid, Other Sensory Impairments Opthamlomology History: Reports: Hx Contacts or Glasses - READING GLASSES Denies: Other Sensory Impairments Neurological History: Reports: Hx Migraine - 2 X PER MONTH- TREATS WITH REST, Other Neuro Impairments/Disorders - FIBROMYALGIA, CHRONIC FATIGUE SYNDROME, INSOMNIA Psychiatric History: Reports: Hx Anxiety, Hx Depression Denies: Hx Panic Disorder - Cancer History Cancer Type, Location and Year: anal cancer dx 2011 Hx Chemotherapy: Yes - ANAL CANER 2012 Hx Radiation Therapy: Yes - Surgical History Surgery Procedure, Year, and Place: [facility] [place] - [place]. hysterectomy 1989 [facility] [place]-HEART CATHERIZATION 2000 [place]. L thyroidectomy-[facility] [place] -. TUBAL LIGATION 1977. left shoulder- bone spurs- [place] 2001. right wrist [facility] [place]illectomy[place]. esophageal wrap per pt for reflux X 2 LAST 1999 [place], [facility] [place]. Hx Anesthesia Reactions: No Infectious Disease History: No Infectious Disease History: Denies: Hx Clostridium Difficile, Hx Hepatitis, Hx Human Immunodeficiency Virus (HIV), Hx of Known/Suspected MRSA, Hx Shingles, Hx Tuberculosis, Hx Known/ Suspected VRE, Hx Known/Suspected VRSA, History Other Infectious Disease, Traveled Outside the [place] in Last 30 Days - Family History Known Family History: Positive: Cardiac Disease, Hypertension, Diabetes - Social History Alcohol Use: None Hx Substance Use: No Substance Use Type: Reports: None Hx Tobacco Use: No Smoking Status (MU): Never Smoked Tobacco Have You Smoked in the Last Year: No Review of Systems Constitutional: Negative Eyes: Negative ENT: Negative Cardiovascular: Negative Respiratory: Negative Positive: Abdominal Pain Genitourinary: Negative Musculoskeletal: Negative Skin: Negative Neurological: Negative Psychological: Normal All Other Systems Reviewed And Are Negative: Yes Physical Exam - Summary Physical Exam Summary: No pain with palpation of abdomen. No pain with palpation of lower back. No CVA tenderness. Triage Information Reviewed: Yes Vital Signs On Initial Exam: Initial Vitals Temp Pulse Resp BP Pulse Ox 98.5 F 74 18 139/48 98 11/05/17 18:17 11/05/17 18:17 11/05/17 18:17 11/05/17 18:17 11/05/17 18:17 Vital Signs Reviewed: Yes Appearance: Positive: Well-Appearing Skin: Positive: Warm Head/Face: Positive: Normal Head/Face Inspection Eyes: Positive: Normal Neck: Positive: Supple Respiratory/Lung Sounds: Positive: Clear to Auscultation Cardiovascular: Positive: Normal Abdomen Description: Positive: Nontender Musculoskeletal: Positive: Normal Neurological: Positive: Normal Psychiatric: Positive: Normal AVPU Assessment: Alert - [place] Coma Scale Best Eye Response: 4 - Spontaneous Best Motor Response: 6 - Obeys Commands Best Verbal Response: 5 - Oriented Coma Scale Total: 15 Diagnostics - Vital Signs Vital Signs Temp Pulse Resp BP Pulse Ox 11/05/17 18:17 98.5 F 74 18 139/48 98 - Laboratory Lab Results: Lab Results 11/05/17 11/05/17 11/05/17 Range/Units 19:04 19:04 19:04 WBC 5.6 (3.5-10.8) 10^3/ul RBC 4.98 (4.00-5.40) 10^6/ul Hgb 13.5 (12.0-16.0) g/dl Hct 40 (35-47) % MCV 81 (80-97) fL MCH 27 (27-31) pg MCHC 34 (31-36) g/dl RDW 14 (10.5-15) % Plt Count 238 (150-450) 10^3/ul MPV 8.5 (7.4-10.4) um3 Neut % (Auto) 73.6 (38-83) % Lymph % (Auto) 15.0 L (25-47) % [place] % (Auto) 7.5 H (0-7) % Eos % (Auto) 2.5 (0-6) % Baso % (Auto) 1.4 (0-2) % Absolute Neuts (auto) 4.2 (1.5-7.7) 10^3/ul Absolute Lymphs (auto) 0.8 L (1.0-4.8) 10^3/ul Absolute Monos (auto) 0.4 (0-0.8) 10^3/ul Absolute Eos (auto) 0.1 (0-0.6) 10^3/ul Absolute Basos (auto) 0.1 (0-0.2) 10^3/ul Absolute Nucleated RBC 0 10^3/ul Nucleated RBC % 0.1 Sodium 138 (135-145) mmol/L Potassium 3.5 (3.5-5.0) mmol/L Chloride 101 (101-111) mmol/L Carbon Dioxide 30 (22-32) mmol/L Anion Gap 7 (2-11) mmol/L BUN 19 (6-24) mg/dL Creatinine 0.95 (0.51-0.95) mg/dL Est GFR ( Amer) 72.9 (>60) Est GFR (Non-Af Amer) 60.2 (>60) BUN/Creatinine Ratio 20.0 (8-20) Glucose 88 (70-100) mg/dL Lactic Acid 0.8 (0.5-2.0) mmol/L Calcium 9.2 (8.6-10.3) mg/dL Total Bilirubin 0.40 (0.2-1.0) mg/dL AST 18 (13-39) U/L ALT 17 (7-52) U/L Alkaline Phosphatase 102 (34-104) U/L C-Reactive Protein 6.67 (<8.01) mg/L Total Protein 7.6 (6.4-8.9) g/dL Albumin 4.3 (3.2-5.2) g/dL Globulin 3.3 (2-4) g/dL Albumin/Globulin Ratio 1.3 (1-3) Urine Color Urine Appearance Urine pH (5-9) Ur Specific [place] (1.010-1.030) Urine Protein (Negative) Urine Ketones (Negative) Urine Blood (Negative) Urine Nitrate (Negative) Urine Bilirubin (Negative) Urine Urobilinogen (Negative) Ur Leukocyte Esterase (Negative) Urine WBC (Auto) (Absent) Urine RBC (Auto) (Absent) Urine Bacteria (Absent) Urine Glucose (Negative) 11/05/17 Range/Units 19:57 WBC (3.5-10.8) 10^3/ul RBC (4.00-5.40) 10^6/ul Hgb (12.0-16.0) g/dl Hct (35-47) % MCV (80-97) fL MCH (27-31) pg MCHC (31-36) g/dl RDW (10.5-15) % Plt Count (150-450) 10^3/ul MPV (7.4-10.4) um3 Neut % (Auto) (38-83) % Lymph % (Auto) (25-47) % [place] % (Auto) (0-7) % Eos % (Auto) (0-6) % Baso % (Auto) (0-2) % Absolute Neuts (auto) (1.5-7.7) 10^3/ul Absolute Lymphs (auto) (1.0-4.8) 10^3/ul Absolute Monos (auto) (0-0.8) 10^3/ul Absolute Eos (auto) (0-0.6) 10^3/ul Absolute Basos (auto) (0-0.2) 10^3/ul Absolute Nucleated RBC 10^3/ul Nucleated RBC % Sodium (135-145) mmol/L Potassium (3.5-5.0) mmol/L Chloride (101-111) mmol/L Carbon Dioxide (22-32) mmol/L Anion Gap (2-11) mmol/L BUN (6-24) mg/dL Creatinine (0.51-0.95) mg/dL Est GFR ( Amer) (>60) Est GFR (Non-Af Amer) (>60) BUN/Creatinine Ratio (8-20) Glucose (70-100) mg/dL Lactic Acid (0.5-2.0) mmol/L Calcium (8.6-10.3) mg/dL Total Bilirubin (0.2-1.0) mg/dL AST (13-39) U/L ALT (7-52) U/L Alkaline Phosphatase (34-104) U/L C-Reactive Protein (<8.01) mg/L Total Protein (6.4-8.9) g/dL Albumin (3.2-5.2) g/dL Globulin (2-4) g/dL Albumin/Globulin Ratio (1-3) Urine Color Yellow Urine Appearance Clear Urine pH 5.0 (5-9) Ur Specific [place] 1.014 (1.010-1.030) Urine Protein Negative (Negative) Urine Ketones Negative (Negative) Urine Blood 1+ A (Negative) Urine Nitrate Negative (Negative) Urine Bilirubin Negative (Negative) Urine Urobilinogen Negative (Negative) Ur Leukocyte Esterase Negative (Negative) Urine WBC (Auto) Trace(0-5/hpf) (Absent) Urine RBC (Auto) Trace(0-2/hpf) (Absent) Urine Bacteria Absent (Absent) Urine Glucose Negative (Negative) Result Diagrams: 11/05/17 19:04 11/05/17 19:04 Lab Statement: Any lab studies that have been ordered have been reviewed, and results considered in the medical decision making process. Back Pain Course/Dx - Course Course Of Treatment: Patient sent by PCP for evaluation of possible pyelonephritis. Patient complains of bilateral lower back pain radiating to bilateral lower abdomen starting this morning. Patient states she had fever 102.6 at PCP. Back pain described as constant, bilateral, radiating to buttocks , sharp, increased pain with walking. Improves with nothing. States new onset pain that she has history of chronic back pain. Denies trauma, history of kidney stones, fever, cough, sore throat, CP, SOB, N/V/D, change in urine or BM. Patient eating and drinking normally. Denies urinary retention, incontinence, radiation of pain down legs. Denies antipyretic today. Medical conditions or hypothyroid, migraines, HTN, asthma, osteoarthritis, COPD. Abdominal/pelvic surgical history is partial as directed me, cholecystectomy. Physical exam:No pain with palpation of abdomen. No pain with palpation of lower back. No CVA tenderness. Afebrile. Vital signs within normal limits and stable. Labs unremarkable. Symptoms consistent with musculoskeletal pain. - Diagnoses Provider Diagnoses: Back pain, Muscle spasm Discharge - Sign-Out/Discharge Documenting (check all that apply): Patient Departure - Discharge Plan Condition: Stable Disposition: HOME Prescriptions: Diazepam TAB(*) [Valium TAB(*)] 5 mg PO TID PRN 2 Days #4 tab MDD 3 tabs PRN Reason: Pain HYDROcodone/ACETAMIN 5-325 MG* [[place] 5-325 TAB*] 1 tab PO Q6H PRN 2 Days #6 tab MDD 4 tabs PRN Reason: Pain predniSONE TAB* [Deltasone 20 MG TAB*] 40 mg PO DAILY 5 Days #5 tab Patient Education Materials: Acute Low Back Pain (ED) Referrals: Berto Kahn MD [Primary Care Provider] - Additional Instructions: Follow-up with primary care. Return to the ED for any new or worsening symptoms - Billing Disposition and Condition Condition: STABLE Disposition: Home
[2017-11-05 21:53] VITALS: BP 124/53
== END 2017-11-05 21:50 | disposition home or self-care (01) ==
LOC: ED 18:12
DX: M54.5 Low back pain (principal); M62.830 Muscle spasm of back; Z88.5 Allergy status to narcotic agent; N10 Acute pyelonephritis
CPT/HCPCS: 36415; 80053; 81003; 81015; 83605; 85025; 86140; 87040; 99281; J2270; J2405; J7512

== ENCOUNTER 2018-03-07 13:56 | Emergency (ER) | payer MEDICARE, OTHER ==
--- OUTSIDE RECORDS SUMMARY | 2018-03-07 14:04 | XMS REPORT | Continuity of Care Document ---
:1955 External Reference #:[id number] Author Name Cierra Dhaliwal Care Team Providers Name Role Phone Berto Kahn MD Primary Care Physician Unavailable Payers Type Date Identification Numbers Payment Provider Subscriber Expires: Policy Number: [id number] [employer] Tamara Toro 2017 Medicaid PayID: [id number] [address] [address] [place] [address] Effective: 2017 Policy Number: [id number] Medicare Tamara Toro PayID: [id number] [address] [place] [address] Effective: 2017 Policy Number: [id number] Medicaid Tamara Toro PayID: [id number] [address] [place] [address] Advance Directives Description No Information Available Problems Date Description Provider Status Onset: 07/15/2013 Malignant tumor of anus Berto Kahn, Anshul Davidson,FACP Onset: 01/23/2010 Benign essential hypertension Christiano Garcia M.D. Active Onset: 01/23/2010 Postoperative hypothyroidism Chrsitiano Garcia M.D. Active Onset: 01/23/2010 Peptic reflux disease Christiano Garcia M.D. Active Onset: 01/23/2010 Atypical depressive disorder Christiano Garcia M.D. Active Onset: 01/23/2010 Extrinsic asthma without status Alicia Mcdonald MD Active asthmaticus Onset: 10/15/2010 Chronic obstructive lung disease Christiano Garcia M.D. Active Note: 2nd hand smoke Onset: 10/15/2010 Panic disorder with agoraphobia Christiano Garcia M.D. Active Onset: 10/15/2010 Myalgia & Myositis Unspecified Christiano Garcia M.D. Active Onset: 01/30/2011 Mixed [...] Accident : (age Third Brother due to RI 57 Years) : (age Fourth Brother due to CHF 74 Years) First Sister due to Unknown () Causes First Sister due to Heart () Disease Social History Type Date Description Comments Sex Unknown Marital Status Lives With Son Occupation Disabled Tobacco Use Start: Unknown Never Smoked Cigarettes ETOH Use 09/07/2016 Denies alcohol use Recreational Drug Use Denies Drug Use Tobacco Use Start: Unknown Patient has never smoked Smoking Status Reviewed: 03/04/18 Patient has never smoked Exercise Type/Frequency Does not exercise Allergies, Adverse Reactions, Alerts Date Description Reaction Status Severity Comments 07/15/2013 Toradol Contact dermatitis Active Moderate 05/06/2014 Oxycodone see spots,come off cloud 9 Active Moderate 02/17/2016 Chocolate Active 12/01/2009 NKDA Inactive Medications Medication Date Status Form Strength Qnty SIG Indications Ordering Provider Ondansetron HCL 02/26/ Active Tablets 4mg 20tab 1 every 6 Berto 2018 s hours as Jesus Kahn, needed Stuart,FACP Fibercon 11/27/ Active Tablets 625mg 120ta 1 tabs Berto 2018 bs twice a day Jesus Kahn, or as Stuart,FACP directed as needed Miralax 11/11/ Active Powder 3350NF 1unit 17 gm every [place] 2017 s day mixed Pachikara, w/ 8 oz M.D. water/juice Omeprazole 06/07/ Active Capsules 20mg 90cap 1 tab by K21.0 Berto 2018 s mouth every Jesus Kahn, day M.DAnn,FACP Triamcinolone 04/02/ Active Cream 0.1% 80gm apply twice Berto Acetonide 2018 a day as Jesus Kahn, needed M.Jesus,FACP Vitamin D 09/07/ Active Capsules 1000Unit 90cap 2 by mouth Berto (Cholecalcifero 2016 s every day pepper Nugent) Stuart,FACP Celebrex 10/10/ Active Capsules 200mg 60cap 1 by mouth M17.12 Berto 2016 s twice a day Jesus Kahn, as needed Pancho.Jesus,FACP Levothyroxine 10/21/ Active Tablets 125mcg 30tab 1 by mouth Berto Sodium 2013 s every day Jesus Kahn M.D.,FACP Diltiazem HCL 10/16/ Active Caps ER 120mg 90cap take 1 I10 Berto ER Beads 2013 24HR s capsule by Jesus Kahn, mouth once M.D.,FACP daily Aspirin Ec 10/01/ Active Tablets DR 325mg 90tab 1 by mouth Izabela 2013 s every day Dakota, FNP Triamterene/Hyd 12/01/ Active Tablets 37.5-25mg 90tab 1 tab by I10 Sanjeev Christensen rochlorothiazid 2009 s mouth ethel Nugent everyday Stuart,FACP Vitamin B12 / Active Tablets 100mcg 180ta 2 tabs by Zsofia 0000 bs mouth every Dakota, day 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 Femi, mcg/Act 4 hours as Stuart,FACP needed Amoxicillin/Cla 07/20/ Hx Tablets 875-125mg 20tab take one J01.90 Donell vulanate 2016 - s tablet q12 Oj, JOCKEY VALET Potassium 07/30/ hours for 2016 10 days Proair HFA 09/12/ Hx Aerosol 108(90Bas 1unit 2 puffs by Berto 2015 - e) s mouth every D. Femi, 07/20/ mcg/Act 4 hours as Stuart,FACP 2016 needed Naproxen 07/31/ Hx Tablets 500mg 60tab 1 tablet by M17.12 Yolande 2015 - s mouth with Bordoni, 10/10/ food twice JOCKEY VALET 2016 daily for two weeks, and then as needed for pain Cane 07/10/ Hx use for M25.562 Mellisa 2016 - ambulation Xavi, 07/20/ in r hand Stuart 2016 Amoxicillin/Cla 04/15/ Hx Tablets 875-125mg 20tab take one J01.90 Donell vulanate 2015 - s tablet q12 Oj, JOCKEY VALET Potassium 09/ hours for 2015 10 days Hydrocodone-Paul 04/15/ Hx Tablets 5-325mg 20tab take 1 R51 Donell taminophen 2015 - s tablets Oj, JOCKEY VALET 04/26/ every 6 2015 hours for pain. Align Probiotic 12/31/ Hx 4mg 30uni 1 po daily Z85.048 Berto 2015 - ts Jesus Kahn, 12/31/ Stuart,FACP 2014 Align 12/31/ Hx Capsules 4mg 30cap 1 po qd Z85.048 Berto 2015 s Jesus Kahn M.D.,FACP Calcium + D3 12/17/ Hx Tablets 600-200mg 60tab 1 tab by Kausahl 2014 - -Unit s mouth twice WILLY Harrison 09/07/ a day 2016 Acidophilus 10/25/ Hx Tablets 30tab daily Berto Probiotic 2014 - s D. Femi, Formula 12/31/ M.D.,FACP 2014 Acidophilus 10/25/ Hx Capsules 300mg 30cap 1 by mouth Berto Probiotic 2014 - s every day DAnn Kahn, 12/31/ M.D.,FACP 2014 Proair HFA 10/25/ Hx Aerosol 108(90Bas 1unit 2 puffs by Berto 2014 - e) s mouth every D. Femi, 04/01/ mcg/Act 4 hours as M.D.,FACP 2015 needed Ondansetron HCL 10/25/ Hx Tablets 4mg 30tab 1 tab sl Berto 2014 - s q8h prn D. Femi, 12/31/ M.D.,FACP 2014 Ondansetron Odt 10/25/ Hx Tablets 4mg 30tab 1 tab sl Berto 2014 - Dispers s q8h prn D. Femi, 12/31/ M.D.,FACP 2014 Ondansetron 10/25/ Hx Tablets 4mg 20tab 1 tab sl R11.0 Berto 2015 - Dispers s every 8 D. Femi, 07/29/ hours as M.D.,FACP 2017 needed Wayne 08/30/ Hx Tablets 5-325mg 30tab 1-2 by 715.14 Giulia 2014 - s mouth q4-6 Cedeno, 12/30/ hour as M.D. 2014 needed pain Lotrisone 05/06/ Hx Cream 1-0.05% 15gm apply a 782.1 Donell 2015 - thin film WILLY Mcwilliams 05/27/ of the 2014 cream to the affected areas twice daily for 2 weeks. Miralax 04/06/ Hx Powder 3350NF 500un 17 gm every Berto 2014 its day mixed Jesus Kahn, w/ 8 oz M.D.,FACP water/juice Acidophilus 02/25/ Hx Capsules 300mg 30cap 1 by mouth Victoria Probiotic 2013 - s every day Mathew 02/25/ N.P. 2014 Probiotic & 02/18/ Hx Capsules 30cap 1 by mouth 789.06 [place] Acidophilus 2014 - s every day Mathew, Formula Extra 02/25/ N.P. Strength 2014 Levoxyl 10/21/ Hx Tablets 125mcg 90tab 1 tablet by Berto 2014 - s mouth every DAnn Kahn, 10/21/ morning M.D.,FACP 2014 Colace 07/24/ Hx Capsules 100mg 90cap 1 by mouth Berto 2014 s three times Jesus Kahn, a day M.D.,FACP Voltaren 07/15/ Hx Gel 1% 100g apply 1-2 719.44 Berto 2014 - gms to Jesus Kahn, M.Jesus,FACP 2014 area twice a day as needed Wellbutrin XL 02/11/ Hx Tablets ER 300mg 30tab 1 by mouth Berto 2012 - 24HR s once daily Jesus Kahn, M.D.,FACP 2015 Diltiazem HCL 10/14/ Hx Caps ER 120mg 30cap take 1 401.1 [place] LEENA 2011 - 24HR s capsule by Radha, 10/16/ mouth once M.D. 2013 daily Venlafaxine HCL 09/12/ Hx Caps ER 37.5mg 1mont 3 tab po Kandis ER 2011 - 24HR h every day Jake, M.D. 2011 Venlafaxine HCL 09/12/ Hx Tablets 37.5mg 90tab 1 po tid Kandis 2012 - s Jake, M.D. 2011 Cartia XT 06/03/ Hx Caps ER 240mg 30cap 1 tab qd 401.1 Christiano 2011 - 24HR s Radha, M.D. 2012 Omeprazole 06/03/ Hx Capsules 40mg 30cap 1 by mouth K21.0 Berto 2012 - s every day Jesus Kahn, M.D.,FACP 2018 Protonix 02/07/ Hx Solution 40mg 30uni once daily Christiano 2010 - Rec ts Waleskaika, M.D. 2011 Aspirin 02/05/ Hx Tablets 325mg 30tab once daily Christiano 2010 - s Radha, M.D. 2013 Effexor XR 01/30/ Hx Caps ER 37.5mg 90cap three tabs [place] 2010 - 24HR s qd Pachikara, M.D. 2013 Neurontin 11/22/ Hx Capsules 100mg 45cap po tid 357.4 Christiano 2010 - s Pachikara, M.D. 2010 Venlafaxine HCL 11/17/ Hx Tablets 37.5mg 90tab 3 tab po [place] 2010 - s daily Pachikara, .D. 2010 Percocet 09/15/ Hx Tablets 5-325mg 60tab 1-2 po Marcus 2010 - s q4-6h prn Fer, 11/22/ pain M.D. 2010 Ibuprofen 06/21/ Hx Tablets 600mg 90tab po tid take 722.93 Christiano 2010 - s with food Pachika, M.D. 2010 Effexor XR 04/24/ Hx Caps ER 75mg 90cap 3 tab po Christiano 2010 - 24HR s daily Pachikara, .D. 2010 Venlafaxine HCL 01/23/ Hx Caps ER 75mg 30cap 1 po qd [place] ER 2009 - 24HR s Pachikara, M.D. 2010 Ondansetron Odt 01/23/ Hx Tablets 4mg 30tab 1 tab sl Berto 2009 - Dispers s q8h prn DAnn Kahn, M.D.,FACP 2014 Ibuprofen 01/20/ Hx Tablets 200mg 100ta one po Berto 2009 - bs q6hrs prn DAnn Kahn, 03/28/ with food M.D.,FACP 2010 Oscal 500/200 12/01/ Hx Tablets 500-200mg 60tab twice a day 244.0 Christian Wang-3 2009 - -Unit s Jesus Kahn, M.D.,FACP 2015 Levoxyl 09/29/ Hx Tablets 150mcg 30tab 1 by mouth Berto 2009 - s every day Jesus Kahn, 10/21/ in in the M.D.,FACP 2014 morning Cartia XT 09/29/ Hx Caps ER 120mg 30cap 1 po qd Berto 2009 - 24HR s Jesus Kahn, M.Jesus,FACP 2011 Aspir-81 09/29/ Hx Tablets 81mg 90tab 1 po qd Harry, 2009 - s MD Alicia 2009 Effexor XR 09/29/ Hx Caps ER 225 90cap 1 po qd Harry, 2009 - 24HR s MD Alicia 2009 Nexium 09/29/ Hx Capsules 40mg 30cap 1 po qd Christiano 2009 - DR nirmal Garcia, M.D. 2010 Albuterol 09/29/ Hx 1unit 2 puffs po Berto Inhaler 2009 - s qid prn Jesus Kahn, MCarla,FACP 2014 Ranitidine HCL 09/29/ Hx Capsules 150mg 90cap 1 [facility] - nirmal Vargas MD 2010 Lisinopril 09/29/ Hx Tablets 5mg 90tab 1 po qd [facility] - nirmal Vargas MD 2009 Aspirin/Antacid 09/29/ Hx Tablets DR 325mg 30tab po qd 296.82 Berto 2009 - s Jesus Kahn, M.DAnn,FACP 2010 Wellbutrin XL / Hx Tablets ER 150mg 21tab 3 po qd Christiano 0000 - 24HR nirmal Garcia, M.D. 2011 Fibercon / Hx Tablets 625mg 30tab 625mg 1 by Berto 0000 s mouth every Jesus Kahn.DAnn,FACP Acidophilus / Hx Capsules 300mg 30cap 1 by mouth Berto Montelongo 0000 - s every day Jesus Kahn, 10/25/ M.D.,FACP 2014 Linzess / Hx Capsules 145mcg by mouth Unknown 0000 - every day 04/02/ as needed 2018 Medications Administered in Office Medication Date Status Form Strength Qnty SIG Indications Ordering Provider Technetium TC Administered Injection Milad Perdomo 99M 017 Jeffrey Mandujano M.D., FACC, Per Unit Dose FASNC Up To 40 Millicuries Depomedrol Administered Injection Mellisa 40MG 016 Stuart Hurley Depomedrol Administered Injection Mellisa 40MG 016 Stuart Hurley Depomedrol Administered Injection Giulia 80MG 014 Stuart Cedeno Depomedrol Administered Injection Giulia 80MG 013 Stuart Cedeno Depomedrol Administered Injection Adventism 80MG 013 Oliva Higuera Immunizations CPT Code Status Date Vaccine Lot # [id number] Given 12/11/2017 Influenza Virus Vaccine, Quadrivalent, Split, [id number] Preservative Free 52311 Given 04/02/2017 Influenza Virus Vaccine, Quadrivalent, Split, [id number] Preservative Free 60207 Given 03/18/2016 Influenza Virus Vaccine, Quadrivalent, Split Virus, Im Use 76611 Given 12/31/2014 Influenza Virus Vaccine, Quadrivalent, Split, [id number] Preservative Free 85569 Given 12/31/2014 Pneumococcal Conjugate Vaccine 13 Valent For [id number] Intramuscular Use 08181 Given 02/18/2014 Flu Vaccine Split Virus Preservative Free For [id number] Indiv 3Yr Older 82658 Given 05/28/2012 Pneumonia Vaccine 58206 Given 05/28/2012 Tdap - Tetanus/Diptheria/Acellular Pertussis 80145 Given 01/30/2011 Influenza Virus 3Yrs & Over [id number] 75405 Given 03/28/2010 Influenza Virus 3Yrs & Over [id number] Vital Signs Date Vital Result Comment 03/04/2018 9:08am Height 65.5 inches 5'5.50" Weight 200.00 lb Heart Rate 72 /min BP Systolic 128 mmHg BP Diastolic 78 mmHg Respiratory Rate 16 /min Body Temperature 96.8 F BMI (Body Mass Index) 32.8 kg/m2 01/23/2018 10:36am Heart Rate 78 /min BP Systolic Sitting 132 mmHg BP Diastolic Sitting 80 mmHg Respiratory Rate 18 /min Body Temperature 97.8 F 01/13/2018 8:42am Height 65.5 inches 5'5.50" Weight 200.00 lb Heart Rate 68 /min BP Systolic 116 mmHg BP Diastolic 80 mmHg Respiratory Rate 16 /min Body Temperature 98.3 F BMI (Body Mass Index) 32.8 kg/m2 12/11/2017 7:54am Height 65.5 inches 5'5.50" Weight 206.12 lb Heart Rate 80 /min BP Systolic Sitting 116 mmHg BP Diastolic Sitting 78 mmHg O2 % BldC Oximetry 97 % BMI (Body Mass Index) 33.8 kg/m2 11/05/2017 3:41pm Height 65.5 inches 5'5.50" Weight 206.00 lb Heart Rate 83 /min BP Systolic Sitting 112 mmHg BP Diastolic Sitting 75 mmHg Body Temperature 102.6 F O2 % BldC Oximetry 97 % BMI (Body Mass Index) 33.8 kg/m2 09/09/2017 8:42am Height 65.5 inches 5'5.50" Weight 201.00 lb Heart Rate 81 /min BP Systolic Sitting 124 mmHg BP Diastolic Sitting 82 mmHg Body Temperature 97.9 F O2 % BldC Oximetry 99 % BMI (Body Mass Index) 32.9 kg/m2 06/07/2017 9:34am Weight 198.00 lb Heart Rate 81 /min BP Systolic 115 mmHg BP Diastolic 70 mmHg Body Temperature 97.4 F O2 % BldC Oximetry 97 % 05/20/2017 9:56am Heart Rate 74 /min BP Systolic 124 mmHg BP Diastolic 78 mmHg Respiratory Rate 16 /min 05/13/2017 10:32am Heart Rate 78 /min BP Systolic 122 mmHg BP Diastolic 84 mmHg Respiratory Rate 16 /min Body Temperature 97.2 F 04/02/2017 8:12am Weight 199.00 lb Heart Rate 68 /min BP Systolic 118 mmHg BP Diastolic 82 mmHg Body Temperature 97.7 F O2 % BldC Oximetry 98 % 03/01/2017 2:17pm Heart Rate 78 /min BP Systolic 136 mmHg BP Diastolic 84 mmHg Body Temperature 98.1 F 09/07/2016 9:39am Height 65.25 inches 5'5.25" Weight 197.50 lb Heart Rate 80 /min BP Systolic Sitting 124 mmHg BP Diastolic Sitting 60 mmHg Body Temperature 98.6 F O2 % BldC Oximetry 98 % BMI (Body Mass Index) 32.6 kg/m2 07/20/2016 4:48pm Weight 202.50 lb Heart Rate 82 /min BP Systolic 108 mmHg BP Diastolic 66 mmHg Body Temperature 97.2 F O2 % BldC Oximetry 97 % 06/06/2016 9:49am Height 67 inches 5'7" Weight 197.25 lb Heart Rate 83 /min BP Systolic 120 mmHg BP Diastolic 76 mmHg Body Temperature 98.4 F O2 % BldC Oximetry 98 % BMI (Body Mass Index) 30.9 kg/m2 03/26/2016 9:25am Height 67 inches 5'7" Weight 185.00 lb Heart Rate 74 /min BP Systolic Sitting 102 mmHg BP Diastolic Sitting 68 mmHg Respiratory Rate 16 /min Body Temperature 97.7 F BMI (Body Mass Index) 29.0 kg/m2 02/17/2016 2:28pm Height 67 inches 5'7" Weight 194.00 lb Heart Rate 72 /min BP Systolic 118 mmHg BP Diastolic 86 mmHg Respiratory Rate 16 /min Body Temperature 98.4 F BMI (Body Mass Index) 30.4 kg/m2 10/31/2015 11:10am Heart Rate 72 /min BP Systolic 115 mmHg BP Diastolic 76 mmHg Pain Level 8 10/11/2015 8:02am Weight 188.00 lb Heart Rate 70 /min BP Systolic Sitting 124 mmHg BP Diastolic Sitting 82 mmHg Respiratory Rate 15 /min Body Temperature 98.0 F O2 % BldC Oximetry 96 % 08/01/2015 11:41am Height 67 inches 5'7" Weight 180.00 lb Pain Level 8 BMI (Body Mass Index) 28.2 kg/m2 07/11/2015 9:48am Height 67 inches 5'7" Weight 180.00 lb Heart Rate 76 /min BP Systolic 114 mmHg BP Diastolic 74 mmHg Pain Level 10 BMI (Body Mass Index) 28.2 kg/m2 04/15/2015 3:22pm Height 65 inches 5'5" Weight 186.00 lb Heart Rate 82 /min BP Systolic Sitting 118 mmHg BP Diastolic Sitting 70 mmHg Respiratory Rate 15 /min Body Temperature 98.2 F O2 % BldC Oximetry 98 % BMI (Body Mass Index) 30.9 kg/m2 04/01/2015 12:44pm Height 65 inches 5'5" Weight 189.00 lb Heart Rate 71 /min BP Systolic 96 mmHg BP Diastolic 67 mmHg Body Temperature 98.6 F O2 % BldC Oximetry 100 % BMI (Body Mass Index) 31.4 kg/m2 12/31/2014 7:56am Height 65 inches 5'5" Weight 183.00 lb Heart Rate 76 /min BP Systolic Sitting 114 mmHg BP Diastolic Sitting 74 mmHg Body Temperature 98.0 F O2 % BldC Oximetry 98 % BMI (Body Mass Index) 30.4 kg/m2 10/14/2014 8:58am Height 66 inches 5'6" Weight 176.00 lb Pain Level 8 BMI (Body Mass Index) 28.4 kg/m2 09/16/2014 8:41am Height 66 inches 5'6" Weight 176.00 lb Body Temperature 97.3 F BMI (Body Mass Index) 28.4 kg/m2 08/30/2014 8:03am Height 65.75 inches 5'5.75" Weight 181.00 lb Pain Level 10 BMI (Body Mass Index) 29.4 kg/m2 05/06/2014 12:45pm Height 65.75 inches 5'5.75" Weight 181.00 lb Heart Rate 80 /min BP Systolic 108 mmHg BP Diastolic 70 mmHg Body Temperature 98.4 F BMI (Body Mass Index) 29.4 kg/m2 02/18/2014 3:47pm Weight 176.50 lb Heart Rate 83 /min BP Systolic Sitting 118 mmHg BP Diastolic Sitting 74 mmHg Body Temperature 98.5 F O2 % BldC Oximetry 98 % 11/19/2013 4:03pm Height 67 inches 5'7" Weight 180.00 lb Pain Level 10 BMI (Body Mass Index) 28.2 kg/m2 10/16/2013 12:59pm Weight 180.50 lb Heart Rate 88 /min BP Systolic Sitting 108 mmHg BP Diastolic Sitting 68 mmHg Body Temperature 99.3 F 07/15/2013 1:46pm Height 65.75 inches 5'5.75" Weight 193.00 lb Heart Rate 84 /min BP Systolic Sitting 100 mmHg BP Diastolic Sitting 74 mmHg Body Temperature 98.2 F BMI (Body Mass Index) 31.4 kg/m2 06/04/2011 10:09am Height 67 inches 5'7" Weight 238.00 lb Heart Rate 88 /min BP Systolic Sitting 130 mmHg BP Diastolic Sitting 100 mmHg BMI (Body Mass Index) 37.3 kg/m2 01/30/2011 8:57am Height 67 inches 5'7" Weight 244.00 lb Heart Rate 68 /min BP Systolic Sitting 140 mmHg BP Diastolic Sitting 78 mmHg BMI (Body Mass Index) 38.2 kg/m2 11/22/2010 3:29pm Height 67 inches 5'7" Weight 250.00 lb Heart Rate 62 /min BP Systolic Sitting 150 mmHg BP Diastolic Sitting 85 mmHg BMI (Body Mass Index) 39.2 kg/m2 10/03/2010 4:11pm Weight 245.00 lb Heart Rate 84 /min BP Systolic Sitting 126 mmHg BP Diastolic Sitting 84 mmHg 09/05/2010 12:59pm Height 67 inches 5'7" Weight 250.00 lb Heart Rate 98 /min BP Systolic Sitting 128 mmHg BP Diastolic Sitting 90 mmHg BMI (Body Mass Index) 39.2 kg/m2 08/29/2010 3:37pm Height 67 inches 5'7" Weight 240.00 lb Heart Rate 97 /min BP Systolic 138 mmHg BP Diastolic 87 mmHg BMI (Body Mass Index) 37.6 kg/m2 08/21/2010 2:21pm Height 67 inches 5'7" Weight 250.00 lb Heart Rate 70 /min BP Systolic Sitting 140 mmHg BP Diastolic Sitting 90 mmHg BMI (Body Mass Index) 39.2 kg/m2 07/17/2010 1:41pm Height 67 inches 5'7" Weight 248.00 lb Heart Rate 86 /min BP Systolic Sitting 140 mmHg BP Diastolic Sitting 98 mmHg BMI (Body Mass Index) 38.8 kg/m2 06/21/2010 12:10pm Weight 250.00 lb Heart Rate 90 /min BP Systolic Sitting 134 mmHg BP Diastolic Sitting 80 mmHg 03/28/2010 3:49pm Height 67 inches 5'7" Weight 247.00 lb Heart Rate 90 /min BP Systolic Sitting 116 mmHg BP Diastolic Sitting 80 mmHg O2 % BldC Oximetry 94 % BMI (Body Mass Index) 38.7 kg/m2 01/23/2010 8:06am Weight 247.00 lb Heart Rate 106 /min BP Systolic Sitting 132 mmHg BP Diastolic Sitting 82 mmHg 01/16/2010 4:16pm Weight 244.00 lb Heart Rate 112 /min BP Systolic Sitting 122 mmHg BP Diastolic Sitting 80 mmHg Body Temperature 98.0 F O2 % BldC Oximetry 98 % 12/01/2009 1:07pm Weight 250.00 lb Heart Rate 80 /min BP Systolic 120 mmHg BP Diastolic 88 mmHg 09/29/2009 9:15am Height 67 inches 5'7" Weight 253.00 lb Heart Rate 82 /min BP Systolic Sitting 138 mmHg BP Diastolic Sitting 82 mmHg BMI (Body Mass Index) 39.6 kg/m2 Results Test Date Facility Test Result H/L Range Note Laboratory test 01/23/2018 [facility] Surgical SEE RESULT [address] [place] [address] [phone] CBC Auto Diff 2017 [facility] White Blood 4.8 10^3/uL N 3.5-10.[address] [place] [address] [phone] Red Blood Count 4.86 10^6/uL N 4.00-5.40 Hemoglobin 13.0 g/dL N 12.0-16.0 Hematocrit 40 % N 35-47 Mean Corpuscular Volume 82 fL N 80-97 Mean Corpuscular Hemoglobin 27 pg N 27-31 Mean Corpuscular HGB Conc 33 g/dL N 31-36 Red Cell Distribution Width 15 % N 10.5-15 Platelet Count 193 10^3/uL N 150-450 Mean Platelet Volume 9.1 um3 N 7.4-10.4 Abs Neutrophils 3.5 10^3/uL N 1.5-7.7 Abs Lymphocytes 0.7 10^3/uL Low 1.0-4.8 Abs Monocytes 0.4 10^3/uL N 0-0.8 Abs Eosinophils 0.1 10^3/uL N 0-0.6 Abs Basophils 0 10^3/uL N 0-0.2 Abs Nucleated RBC 0 10^3/uL Granulocyte % 74.0 % N 38-83 Lymphocyte % 13.8 % Low 25-47 Monocyte % 9.1 % High 0-7 Eosinophil % 2.6 % N 0-6 Basophil % 0.5 % N 0-2 Nucleated Red Blood Cells % 0.1 Laboratory test 2017 [facility] C Reactive 3.37 mg/L N < 8.[address] [place] [address] [phone] Comp Metabolic 2017 [facility] Sodium 143 mmol/L N 135- [address] [place] [address] [phone] Potassium 3.8 mmol/L N 3.5-5.0 Chloride 107 mmol/L N 101-111 Co2 Carbon Dioxide 30 mmol/L N 22-32 Anion Gap 6 mmol/L N 2-11 Glucose 89 mg/dL N 70-100 Blood Urea Nitrogen 18 mg/dL N 6-24 Creatinine 0.93 mg/dL N 0.51-0.95 BUN/Creatinine Ratio 19.4 N 8-20 Calcium 9.0 mg/dL N 8.6-10.3 Total Protein 6.4 g/dL N 6.4-8.9 Albumin 4.0 g/dL N 3.2-5.2 Globulin 2.4 g/dL N 2-4 Albumin/Globulin Ratio 1.7 N 1-3 Total Bilirubin 0.40 mg/dL N 0.2-1.0 Alkaline Phosphatase 93 U/L N 34-104 Alt 14 U/L N 7-52 Ast 17 U/L N 13-39 Egfr Non- 61.5 >60 Egfr 74.4 >60 2 Laboratory test 2017 [facility] Blood Culture SEE RESULT [address] [place] [address] [phone] Urine Culture And 11/05/2017 [facility] Urine Culture SEE RESULT [address] [place] [address] [phone] Urinalysis Profile 11/05/2017 [facility] Urine Color Yellow [address] [place] [address] [phone] Urine Appearance Clear Urine Specific [place] 1.014 N 1.010-1.030 Urine pH 5.0 N 5-9 Urine Urobilinogen Negative Negative Urine Ketones Negative Negative Urine Protein Negative Negative Urine Leukocytes Negative Negative Urine Blood 1+ Abnormal Negative Urine Nitrite Negative Negative Urine Bilirubin Negative Negative Urine Glucose Negative Negative Urine White Blood Cell Trace(0-5/hpf) Absent Urine Red Blood Cell Trace(0-2/hpf) Absent Urine Bacteria Absent Absent Ua Routine 11/05/2017 [facility] Ua Specific [place] 1.015 Ua PH 5 Ua Color yellow Ua Appera clear Ua WBC ++ Ua Protein trace Ua Glucose neg Ua Ketones neg Ua Bilirubin neg Ua Urobilinogen norm Ua Nitrite neg Ua Occult Blood trace Laboratory test 10/31/2017 [facility] TSH (Thyroid 1.84 mcIU/mL N 0.34-5.[address] Stim Horm) [place] [address] [phone] Free T4 (Free Thyroxine) 1.12 ng/dL N 0.61-1.12 Urine Culture And 09/09/2017 [facility] Urine Culture SEE RESULT [address] [place] [address] [phone] Ua Routine 09/09/2017 [facility] Ua Specific 1.010 [place] Ua PH 6 Ua Color yellow Ua Appera cloudy Ua WBC ++ Ua Protein trace Ua Glucose normal Ua Ketones neg Ua Bilirubin neg Ua Urobilinogen normal Ua Nitrite neg Ua Occult Blood 50 Laboratory test 08/20/2017 [facility] TSH (Thyroid 11.99 High 0.34-5.[address] Stim Horm) mcIU/[place] [address] [phone] Basic Metabolic 08/13/2017 [facility] Sodium 140 mmol/L N 139- [address] [place] [address] [phone] Potassium 4.3 mmol/L N 3.5-5.0 Chloride 106 mmol/L N 101-111 Co2 Carbon Dioxide 30 mmol/L N 22-32 Anion Gap 4 mmol/L N 2-11 Glucose 86 mg/dL N 70-100 Blood Urea Nitrogen 19 mg/dL N 6-24 Creatinine 0.89 mg/dL N 0.51-0.95 BUN/Creatinine Ratio 21.3 High 8-20 Calcium 8.9 mg/dL N 8.6-10.3 Egfr Non- 64.9 >60 Egfr 83.5 >60 6 Lipid Profile 08/13/2017 [facility] Triglycerides 92 mg/dL 7 (Trig/Chol/HDL) [address] [place] [address] [phone] Cholesterol 184 mg/dL 8 HDL Cholesterol 55.7 mg/dL 9 LDL Cholesterol 110 mg/dL 10 Laboratory test 07/16/2017 [facility] Troponin-I 0.01 ng/mL < 0.04 finding 101 [facility] ([facility] [place] [address] [phone] CBC Auto Diff 07/16/2017 [facility] White Blood 4.3 N 3.5- 10.[address] Count 10^3/[place] [address] [phone] Red Blood Count 4.92 10^6/uL N 4.0-5.4 Hemoglobin 13.2 g/dL N 12.0-16.0 Hematocrit 40 % N 35-47 Mean Corpuscular Volume 82 fL N 80-97 Mean Corpuscular Hemoglobin 27 pg N 27-31 Mean Corpuscular HGB Conc 33 g/dL N 31-36 Red Cell Distribution Width 15 % N 10.5-15 Platelet Count 156 10^3/uL N 150-450 Mean Platelet Volume 9.0 um3 N 7.4-10.4 Abs Neutrophils 3.4 10^3/uL N 1.5-7.7 Abs Lymphocytes 0.4 10^3/uL Low 1.0-4.8 Abs Monocytes 0.4 10^3/uL N 0-0.8 Abs Eosinophils 0 10^3/uL N 0-0.6 Abs Basophils 0 10^3/uL N 0-0.2 Abs Nucleated RBC 0 10^3/uL Granulocyte % 80.7 % N 38-83 Lymphocyte % 9.6 % Low 25-47 Monocyte % 8.6 % High 0-7 Eosinophil % 0.4 % N 0-6 Basophil % 0.7 % N 0-2 Nucleated Red Blood Cells % 0.1 Comp Metabolic Panel 07/16/2017 [facility] Sodium 138 mmol/L Low 139-145 [address] [place] [address] [phone] Potassium 3.2 mmol/L Low 3.5-5.0 Chloride 104 mmol/L N 101-111 Co2 Carbon Dioxide 28 mmol/L N 22-32 Anion Gap 6 mmol/L N 2-11 Glucose 113 mg/dL High 70-100 Blood Urea Nitrogen 22 mg/dL N 6-24 Creatinine 0.91 mg/dL N 0.51-0.95 BUN/Creatinine Ratio 24.2 High 8-20 Calcium 8.7 mg/dL N 8.6-10.3 Total Protein 6.9 g/dL N 6.4-8.9 Albumin 3.9 g/dL N 3.2-5.2 Globulin 3.0 g/dL N 2-4 Albumin/Globulin Ratio 1.3 N 1-3 Total Bilirubin 0.80 mg/dL N 0.2-1.0 Alkaline Phosphatase 110 U/L High 34-104 Alt 36 U/L N 7-52 Ast 49 U/L High 13-39 Egfr Non- 63.3 >60 Egfr 81.4 >60 11 Laboratory test 07/16/2017 [facility] Troponin-I (TnI) 0.01 ng/ mL <0.[address] [place] [address] [phone] Lactic Acid 0.6 mmol/L N 0.5-2.0 12 Lipase 22 U/L N 11.0-82.0 Laboratory test 04/02/2017 [facility] Erythrocyte Sed 31 mm/Hr High 0-[address] [place] [address] [phone] Basic Metabolic 04/02/2017 [facility] Sodium 139 N 133-[address] mmol/[place] [address] [phone] Potassium 4.3 mmol/L N 3.5-5.0 Chloride 105 mmol/L N 101-111 Co2 Carbon Dioxide 31 mmol/L N 22-32 Anion Gap 3 mmol/L N 2-11 Glucose 88 mg/dL N 70-100 Blood Urea Nitrogen 20 mg/dL N 6-24 Creatinine 0.81 mg/dL N 0.51-0.95 BUN/Creatinine Ratio 24.7 High 8-20 Calcium 9.1 mg/dL N 8.6-10.3 Egfr Non- 72.4 >60 Egfr 93.1 >60 13 Laboratory test 04/02/2017 [facility] Vitamin D 21.2 N 20-[address] Total ng/[place] [address] 25(Oh) [phone] Thyroid 04/02/2017 [facility] Thyroid 4.5 mIU/L Abnormal 0.3- 4.2 [address] [place] [address] Hormone [phone] Free T4 1.3 ng/dL 0.9 - 1.7 15 Thyroperoxidase Antibody 54.6 IU/mL Abnormal <9.0 16 Laboratory test 08/31/2016 [facility] TSH (Thyroid 2.55 mcIU/mL N 0.34-5.[address] Stim Horm) [place] [address] [phone] CBC Auto Diff 08/31/2016 [facility] White Blood 5.8 10^3/uL N 3.5-10.[address] [place] [address] [phone] Red Blood Count 4.45 10^6/uL N 4.0-5.4 Hemoglobin 12.0 g/dL N 12.0-16.0 Hematocrit 37 % N 35-47 Mean Corpuscular Volume 83 fL N 80-97 Mean Corpuscular Hemoglobin 27 pg N 27-31 Mean Corpuscular HGB Conc 33 g/dL N 31-36 Red Cell Distribution Width 15 % N 10.5-15 Platelet Count 189 10^3/uL N 150-450 Mean Platelet Volume 10 um3 N 7.4-10.4 Abs Neutrophils 4.3 10^3/uL N 1.5-7.7 Abs Lymphocytes 0.7 10^3/uL Low 1.0-4.8 Abs Monocytes 0.5 10^3/uL N 0-0.8 Abs Eosinophils 0.2 10^3/uL N 0-0.6 Abs Basophils 0.1 10^3/uL N 0-0.2 Abs Nucleated RBC 0.01 10^3/uL N Granulocyte % 75.4 % N 38-83 Lymphocyte % 12.2 % Low 25-47 Monocyte % 8.4 % N 1-9 Eosinophil % 3.1 % N 0-6 Basophil % 0.9 % N 0-2 Nucleated Red Blood Cells % 0.1 N Laboratory 08/31/2016 [facility] Vitamin D Total 19.0 Low 30- 50 test finding [address] 25(Oh) ng/[place] [address] [phone] Lipid Profile 02/17/2016 [facility] Triglycerides 74 mg/dL N 17, 18 (Trig/Chol/HDL [address] ) [place] [address] [phone] Cholesterol 194 mg/dL N 19 HDL Cholesterol 62.1 mg/dL N 20 LDL Cholesterol 117 mg/dL N 21 Laboratory test 02/17/2016 [facility] Vitamin D 20.2 ng/mL Low 30-50 [address] [place] [address] 25(Oh) [phone] Laboratory test 01/19/2016 [facility] Clotest SEE RESULT 23 , [address] BELOW [place], [place] [id number] [phone] Laboratory test 10/31/2015 [facility] TSH 0.68 N 0.34-5.[address] (Thyroid mcIU/[place] [address] Stim Horm) [phone] CBC Auto Diff 09/18/2015 [facility] White Blood 4.8 N 3.5- 10.[address] Count 10^3/[place] [address] [phone] Red Blood Count 4.17 10^6/uL N 4.0-5.4 Hemoglobin 11.7 g/dL Low 12.0-16.0 Hematocrit 35 % N 35-47 Mean Corpuscular Volume 84 fL N 80-97 Mean Corpuscular Hemoglobin 28 pg N 27-31 Mean Corpuscular HGB Conc 33 g/dL N 31-36 Red Cell Distribution Width 14 % N 10.5-15 Platelet Count 181 10^3/uL N 150-450 Mean Platelet Volume 9 um3 N 7.4-10.4 Abs Neutrophils 3.4 10^3/uL N 1.5-7.7 Abs Lymphocytes 0.7 10^3/uL Low 1.0-4.8 Abs Monocytes 0.4 10^3/uL N 0-0.8 Abs Eosinophils 0.2 10^3/uL N 0-0.6 Abs Basophils 0 10^3/uL N 0-0.2 Abs Nucleated RBC 0.01 10^3/uL N Granulocyte % 71.2 % N 38-83 Lymphocyte % 15.2 % Low 25-47 Monocyte % 9.1 % High 1-9 Eosinophil % 3.7 % N 0-6 Basophil % 0.8 % N 0-2 Nucleated Red Blood Cells % 0.1 N Comp Metabolic Panel 09/18/2015 [facility] Sodium 140 mmol/L N 133-[address] [place] [address] [phone] Potassium 3.3 mmol/L Low 3.5-5.0 Chloride 105 mmol/L N 101-111 Co2 Carbon Dioxide 28 mmol/L N 22-32 Anion Gap 7 mmol/L N 2-11 Glucose 93 mg/dL N 70-100 Blood Urea Nitrogen 24 mg/dL N 6-24 Creatinine 0.97 mg/dL High 0.51-0.95 BUN/Creatinine Ratio 24.7 High 8-20 Calcium 9.2 mg/dL N 8.6-10.3 Total Protein 6.7 g/dL N 6.4-8.9 Albumin 3.9 g/dL N 3.2-5.2 Globulin 2.8 g/dL N 2-4 Albumin/Globulin Ratio 1.4 N 1-3 Total Bilirubin 0.30 mg/dL N 0.2-1.0 Alkaline Phosphatase 65 U/L N 34-104 Alt 12 U/L N 7-52 Ast 15 U/L N 13-39 Egfr Non- 59.2 N >60 Egfr 76.1 N >60 25 Laboratory test 09/18/2015 [facility] Magnesium 2.1 mg/dL N 1.9-2.[address] [place] [address] [phone] Troponin-I (TnI) 0.00 ng/mL N <0.03 26 Urinalysis Profile 06/01/2015 [facility] Urine Color Yellow N [address] [place] [address] [phone] Urine Appearance Clear N Urine Specific [place] 1.014 N 1.010-1.030 Urine pH 5.0 N 5-9 Urine Urobilinogen Negative N Negative Urine Ketones 1+ Abnormal Negative Urine Protein Negative N Negative Urine Leukocytes 1+ Abnormal Negative Urine Blood 1+ Abnormal Negative Urine Nitrite Positive Abnormal Negative Urine Bilirubin Negative N Negative Urine Glucose Negative N Negative Urine White Blood Cell 3+(>20/hpf) Abnormal Absent Urine Red Blood Cell 1+(3-5/hpf) Abnormal Absent Urine Bacteria Absent N Absent CBC Auto Diff 06/01/2015 [facility] White Blood 5.4 10^3/uL N 3.5-10.[address] [place] [address] [phone] Red Blood Count 4.80 10^6/uL N 4.0-5.4 Hemoglobin 13.3 g/dL N 12.0-16.0 Hematocrit 41 % N 35-47 Mean Corpuscular Volume 85 fL N 80-97 Mean Corpuscular Hemoglobin 28 pg N 27-31 Mean Corpuscular HGB Conc 33 g/dL N 31-36 Red Cell Distribution Width 14 % N 10.5-15 Platelet Count 167 10^3/uL N 150-450 Mean Platelet Volume 9 um3 N 7.4-10.4 Abs Neutrophils 4.5 10^3/uL N 1.5-7.7 Abs Lymphocytes 0.4 10^3/uL Low 1.0-4.8 Abs Monocytes 0.5 10^3/uL N 0-0.8 Abs Eosinophils 0 10^3/uL N 0-0.6 Abs Basophils 0 10^3/uL N 0-0.2 Abs Nucleated RBC 0 10^3/uL N Granulocyte % 83.6 % High 38-83 Lymphocyte % 6.9 % Low 25-47 Monocyte % 8.6 % N 1-9 Eosinophil % 0.5 % N 0-6 Basophil % 0.4 % N 0-2 Nucleated Red Blood Cells % 0.1 N Laboratory test 06/01/2015 [facility] D Dimer < 200 N Less [address] Quantitative ng/mL Than [address] [place] [address] [phone] Troponin-I (TnI) 0.00 ng/mL N <0.03 28 Comp Metabolic Panel 06/01/2015 [facility] Sodium 136 mmol/L N 133-[address] [place] [address] [phone] Potassium 4.0 mmol/L N 3.5-5.0 Chloride 100 mmol/L Low 101-111 Co2 Carbon Dioxide 29 mmol/L N 22-32 Anion Gap 7 mmol/L N 2-11 Glucose 96 mg/dL N 70-100 Blood Urea Nitrogen 15 mg/dL N 6-24 Creatinine 0.86 mg/dL N 0.51-0.95 BUN/Creatinine Ratio 17.4 N 8-20 Calcium 9.5 mg/dL N 8.6-10.3 Total Protein 7.4 g/dL N 6.4-8.9 Albumin 4.3 g/dL N 3.2-5.2 Globulin 3.1 g/dL N 2-4 Albumin/Globulin Ratio 1.4 N 1-3 Total Bilirubin 0.60 mg/dL N 0.2-1.0 Alkaline Phosphatase 85 U/L N 34-104 Alt 19 U/L N 7-52 Ast 23 U/L N 13-39 Egfr Non- 68.0 N >60 Egfr 87.5 N >60 29 Laboratory test 06/01/2015 [facility] Lipase 12 U/L N 11.0- 82.[address] [place], [place] [id number] [phone] Urine Culture And 06/01/2015 [facility] Urine Culture SEE [address] [place] [address] BELOW [phone] Lipid Profile 01/10/2015 [facility] Triglycerides 89 mg/dL N 31, (Trig/Chol/HDL) [address] [place] [address] [phone] Cholesterol 182 mg/dL N 33 HDL Cholesterol 60.6 mg/dL N 34 LDL Cholesterol 104 mg/dL N 35 Laboratory test 01/10/2015 [facility] Alpha 1 119 mg/dL N 100 - [address] Antitrypsin A1a 190 [place], [place] [address] [phone] Comp Metabolic 01/10/2015 [facility] Sodium 137 mmol/L N 133- [address] [place] [address] [phone] Potassium 4.0 mmol/L N 3.5-5.0 Chloride 104 mmol/L N 101-111 Co2 Carbon Dioxide 31 mmol/L N 22-32 Anion Gap 2 mmol/L N 2-11 Glucose 78 mg/dL N 70-100 Blood Urea Nitrogen 17 mg/dL N 6-24 Creatinine 0.80 mg/dL N 0.51-0.95 BUN/Creatinine Ratio 21.3 High 8-20 Calcium 9.2 mg/dL N 8.6-10.3 Total Protein 6.3 g/dL Low 6.4-8.9 Albumin 3.9 g/dL N 3.2-5.2 Globulin 2.4 g/dL N 2-4 Albumin/Globulin Ratio 1.6 N 1-3 Total Bilirubin 0.40 mg/dL N 0.2-1.0 Alkaline Phosphatase 70 U/L N 34-104 Alt 11 U/L N 7-52 Ast 15 U/L N 13-39 Egfr Non- 73.9 N >60 Egfr 95.1 N >60 37 CBC Auto 01/10/2015 [facility] White Blood 3.5 10^3/uL Low 4.8 -10.[address] [place] [address] [phone] Red Blood Count 4.44 10^6/uL N 4.0-5.4 Hemoglobin 12.5 g/dL N 12.0-16.0 Hematocrit 39 % N 35-47 Mean Corpuscular Volume 88 fL N 80-97 Mean Corpuscular Hemoglobin 28 pg N 27-31 Mean Corpuscular HGB Conc 32 g/dL N 31-36 Red Cell Distribution Width 14 % N 10.5-15 Platelet Count 175 10^3/uL N 150-450 Mean Platelet Volume 9 um3 N 7.4-10.4 Abs Neutrophils 2.5 10^3/uL N 1.5-7.7 Abs Lymphocytes 0.5 10^3/uL Low 1.0-4.8 Abs Monocytes 0.3 10^3/uL N 0-0.8 Abs Eosinophils 0.1 10^3/uL N 0-0.6 Abs Basophils 0 10^3/uL N 0-0.2 Abs Nucleated RBC 0 10^3/uL N Granulocyte % 72.5 % N 38-83 Lymphocyte % 14.6 % Low 25-47 Monocyte % 9.0 % N 1-9 Eosinophil % 3.4 % N 0-6 Basophil % 0.5 % N 0-2 Nucleated Red Blood Cells % 0.1 N Ua Routine 12/31/2014 [facility] Ua Specific [place] 1.010 Ua PH 5 Ua Color yellow Ua Appera clear Ua WBC neg Ua Protein neg Ua Glucose norm Ua Ketones neg Ua Bilirubin neg Ua Urobilinogen norm Ua Nitrite neg Ua Occult Blood neg Laboratory test 09/07/2014 [facility] Surgical SEE RESULT [address] [place] [address] [phone] CBC Auto Diff 06/28/2014 [facility] White Blood 3.3 10^3/uL Low 4.8-[address] Count 0.8 [place] [address] [phone] Red Blood Count 4.31 10^6/uL N 4.0-5.4 Hemoglobin 12.1 g/dL N 12.0-16.0 Hematocrit 38 % N 35-47 Mean Corpuscular Volume 88 fL N 80-97 Mean Corpuscular Hemoglobin 28 pg N 27-31 Mean Corpuscular HGB Conc 32 g/dL N 31-36 Red Cell Distribution Width 15 % N 10.5-15 Platelet Count 167 10^3/uL N 150-450 Mean Platelet Volume 8 um3 N 7.4-10.4 Abs Neutrophils 2.4 10^3/uL N 1.5-7.7 Abs Lymphocytes 0.5 10^3/uL Low 1.0-4.8 Abs Monocytes 0.3 10^3/uL N 0-0.8 Abs Eosinophils 0.1 10^3/uL N 0-0.6 Abs Basophils 0 10^3/uL N 0-0.2 Abs Nucleated RBC 0 10^3/uL N Granulocyte % 72.5 % N 38-83 Lymphocyte % 14.0 % Low 25-47 Monocyte % 9.2 % High 1-9 Eosinophil % 3.2 % N 0-6 Basophil % 1.1 % N 0-2 Nucleated Red Blood Cells % 0 N Comp Metabolic Panel 06/28/2014 [facility] Sodium 141 mmol/L N 133-[address] [place] [address] [phone] Potassium 4.4 mmol/L N 3.5-5.0 Chloride 107 mmol/L N 101-111 Co2 Carbon Dioxide 30 mmol/L N 22-32 Anion Gap 4 mmol/L N 2-11 Glucose 90 mg/dL N 70-100 Blood Urea Nitrogen 18 mg/dL N 6-24 Creatinine 1.03 mg/dL High 0.51-0.95 BUN/Creatinine Ratio 17.5 N 8-20 Calcium 9.4 mg/dL N 8.6-10.3 Total Protein 6.8 g/dL N 6.4-8.9 Albumin 4.0 g/dL N 3.2-5.2 Globulin 2.8 g/dL N 2-4 Albumin/Globulin Ratio 1.4 N 1-3 Total Bilirubin 0.30 mg/dL N 0.2-1.0 Alkaline Phosphatase 69 U/L N 34-104 Alt 11 U/L N 7-52 Ast 14 U/L N 13-39 Egfr Non- 55.4 N >60 Egfr 71.3 N >60 39 Laboratory test 06/28/2014 [facility] TSH (Thyroid 4.65 N 0.34 -5.[address] Stimulating IU/[place] [address] Horm) [phone] Laboratory test 05/15/2014 [facility] Troponin I 0.00 N <0.03 [address] ng/[place] [address] [phone] CBC Auto Diff 05/15/2014 [facility] White Blood 6.4 N 4.8- 10.[address] Count 10^3/uL [place], [place] [address] [phone] Red Blood Count 4.71 10^6/uL N 4.0-5.4 Hemoglobin 13.3 g/dL N 12.0-16.0 Hematocrit 41 % N 35-47 Mean Corpuscular Volume 87 fL N 80-97 Mean Corpuscular Hemoglobin 28 pg N 27-31 Mean Corpuscular HGB Conc 33 g/dL N 31-36 Red Cell Distribution Width 14 % N 10.5-15 Platelet Count 183 10^3/uL N 150-450 Mean Platelet Volume 9 um3 N 7.4-10.4 Abs Neutrophils 5.4 10^3/uL N 1.5-7.7 Abs Lymphocytes 0.5 10^3/uL Low 1.0-4.8 Abs Monocytes 0.4 10^3/uL N 0-0.8 Abs Eosinophils 0.1 10^3/uL N 0-0.6 Abs Basophils 0 10^3/uL N 0-0.2 Abs Nucleated RBC 0 10^3/uL N Granulocyte % 84.4 % High 38-83 Lymphocyte % 7.2 % Low 25-47 Monocyte % 6.8 % N 1-9 Eosinophil % 1.2 % N 0-6 Basophil % 0.4 % N 0-2 Nucleated Red Blood Cells % 0.1 N Comp Metabolic Panel 05/15/2014 [facility] Sodium 137 mmol/L N 133-[address] [place] [address] [phone] Potassium 3.3 mmol/L Low 3.5-5.0 Chloride 101 mmol/L N 101-111 Co2 Carbon Dioxide 27 mmol/L N 22-32 Anion Gap 9 mmol/L N 2-11 Glucose 90 mg/dL N 70-100 Blood Urea Nitrogen 21 mg/dL N 6-24 Creatinine 0.92 mg/dL N 0.51-0.95 BUN/Creatinine Ratio 22.8 High 8-20 Calcium 9.5 mg/dL N 8.6-10.3 Total Protein 7.2 g/dL N 6.4-8.9 Albumin 4.2 g/dL N 3.2-5.2 Globulin 3.0 g/dL N 2-4 Albumin/Globulin Ratio 1.4 N 1-3 Total Bilirubin 0.30 mg/dL N 0.2-1.0 Alkaline Phosphatase 77 U/L N 34-104 Alt 13 U/L N 7-52 Ast 17 U/L N 13-39 Egfr Non- 63.1 N >60 Egfr 81.2 N >60 41 Laboratory test 05/15/2014 [facility] Troponin I 0.00 ng/mL N <0.03 [address] [place] [address] [phone] Lipase 12 U/L N 11.0-82.0 CBC Auto 03/19/2014 [facility] White Blood 4.4 10^3/uL Low 4.8 -10.[address] [place] [address] [phone] Red Blood Count 4.39 10^6/uL N 4.0-5.4 Hemoglobin 12.7 g/dL N 12.0-16.0 Hematocrit 38 % N 35-47 Mean Corpuscular Volume 87 fL N 80-97 Mean Corpuscular Hemoglobin 29 pg N 27-31 Mean Corpuscular HGB Conc 33 g/dL N 31-36 Red Cell Distribution Width 14 % N 10.5-15 Platelet Count 181 10^3/uL N 150-450 Mean Platelet Volume 8 um3 N 7.4-10.4 Abs Neutrophils 3.5 10^3/uL N 1.5-7.7 Abs Lymphocytes 0.4 10^3/uL Low 1.0-4.8 Abs Monocytes 0.3 10^3/uL N 0-0.8 Abs Eosinophils 0.1 10^3/uL N 0-0.6 Abs Basophils 0 10^3/uL N 0-0.2 Abs Nucleated RBC 0 10^3/uL N Granulocyte % 79.4 % N 38-83 Lymphocyte % 9.4 % Low 25-47 Monocyte % 7.7 % N 1-9 Eosinophil % 2.9 % N 0-6 Basophil % 0.6 % N 0-2 Nucleated Red Blood Cells % 0 N Comp Metabolic Panel 03/19/2014 [facility] Sodium 137 mmol/L N 133-[address] [place] [address] [phone] Potassium 3.7 mmol/L N 3.5-5.0 Chloride 103 mmol/L N 101-111 Co2 Carbon Dioxide 31 mmol/L N 22-32 Anion Gap 3 mmol/L N 2-11 Glucose 65 mg/dL Low 70-100 Blood Urea Nitrogen 20 mg/dL N 6-24 Creatinine 0.88 mg/dL N 0.51-0.95 BUN/Creatinine Ratio 22.7 High 8-20 Calcium 9.4 mg/dL N 8.6-10.3 Total Protein 6.9 g/dL N 6.4-8.9 Albumin 4.0 g/dL N 3.2-5.2 Globulin 2.9 g/dL N 2-4 Albumin/Globulin Ratio 1.4 N 1-3 Total Bilirubin 0.30 mg/dL N 0.2-1.0 Alkaline Phosphatase 69 U/L N 34-104 Alt 11 U/L N 7-52 Ast 12 U/L Low 13-39 Egfr Non- 66.5 N >60 Egfr 85.5 N >60 43 Laboratory test 03/19/2014 [facility] TSH (Thyroid 4.48 IU/mL N 0.34-5.[address] [place] [address] Horm) [phone] Laboratory test 02/26/2014 TSH (Thyroid 2.01 IU/mL N 0.34-5.60 finding Stimulating Horm) Erythrocyte Sed Rate 40 mm/Hr High 0-30 Ferritin 59.0 ng/mL N 11-307 Iron & Iron Binding Capacity 02/26/2014 Iron 50 g/dL N 50-212 Unsaturated Iron Binding 245 g/dL N Total Iron Binding Capacity 295 g/dL N 250-450 % Iron Saturation 17 % N 15-55 Pthi 02/26/2014 PTH Intact 3.9 pmol/L N 1.3-9.3 Calcium (PTH Intact) 9.1 mg/dL N 8.6-10.3 Retic Count 02/26/2014 Retic Count 1.7 % High 0.5-1.5 Corrected Retic Count 1.4 % N 0.5-1.5 Maturation Factor Retic 1.5 N Retic Index 0.90 N Mean Retic Volume 106.0 N Immature Retic Fraction 0.37 N RBC Retic Count 4.14 10^6/uL Low 4.6-6.2 Hematocrit for Retic CNT 36 % N 35-47 Vitamin B12 And Folate Serum 02/26/2014 Vitamin B12 > 1450 pg/mL High 180-914 44 Folate > 20.00 ng/mL N >3.99 CBC Auto Diff 02/26/2014 White Blood Count 3.6 10^3/uL Low 4.8-10.8 Red Blood Count 4.14 10^6/uL N 4.0-5.4 Hemoglobin 11.8 g/dL Low 12.0-16.0 Hematocrit 36 % N 35-47 Mean Corpuscular Volume 86 fL N 80-97 Mean Corpuscular Hemoglobin 29 pg N 27-31 Mean Corpuscular HGB Conc 33 g/dL N 31-36 Red Cell Distribution Width 14 % N 10.5-15 Platelet Count 174 10^3/uL N 150-450 Mean Platelet Volume 9 um3 N 7.4-10.4 Abs Neutrophils 2.9 10^3/uL N 1.5-7.7 Abs Lymphocytes 0.3 10^3/uL Low 1.0-4.8 Abs Monocytes 0.3 10^3/uL N 0-0.8 Abs Eosinophils 0.1 10^3/uL N 0-0.6 Abs Basophils 0 10^3/uL N 0-0.2 Abs Nucleated RBC 0 10^3/uL N Granulocyte % 79.6 % N 38-83 Lymphocyte % 8.8 % Low 25-47 Monocyte % 8.0 % N 1-9 Eosinophil % 3.0 % N 0-6 Basophil % 0.6 % N 0-2 Nucleated Red Blood Cells % 0.1 N Surgical 12/02/2013 [facility] S RUN DATE: [address] 12/03/ <[place] [address] NOTE> [phone] Laboratory test 10/16/2013 [facility] TSH (Thyroid 0.30 IU/mL Low 0.34- finding [address] Stimulating 5.60 [place] [address] Horm) [phone] Hepatitis C Antibody Nonreactive N Nonreactive HIV 1/2 AB 10/16/2013 [facility] HIV 1 2 Nonreactive N Nonreactive [address] [place] [address] [phone] Laboratory 10/16/2013 [facility] Amylase 51 U/L N 29-103 test finding [address] [place] [address] [phone] Lipase 76 U/L N 11.0-82.0 CBC Auto 09/17/2013 [facility] White Blood 4.1 10^3/uL Low 4.8 -10.[address] [place] [address] [phone] Red Blood Count 4.24 10^6/uL N 4.0-5.4 Hemoglobin 11.8 g/dL Low 12.0-16.0 Hematocrit 35 % N 35-47 Mean Corpuscular Volume 83 fL N 80-97 Mean Corpuscular Hemoglobin 28 pg N 27-31 Mean Corpuscular HGB Conc 34 g/dL N 31-36 Red Cell Distribution Width 15 % N 10.5-15 Platelet Count 170 10^3/uL N 150-450 Mean Platelet Volume 9 um3 N 7.4-10.4 Abs Neutrophils 3.2 10^3/uL N 1.5-7.7 Abs Lymphocytes 0.4 10^3/uL Low 1.0-4.8 Abs Monocytes 0.4 10^3/uL N 0-0.8 Abs Eosinophils 0.1 10^3/uL N 0-0.6 Abs Basophils 0 10^3/uL N 0-0.2 Abs Nucleated RBC 0 10^3/uL N Granulocyte % 76.5 % N 38-83 Lymphocyte % 10.0 % Low 25-47 Monocyte % 9.6 % High 1-9 Eosinophil % 3.2 % N 0-6 Basophil % 0.7 % N 0-2 Nucleated Red Blood Cells % 0.1 N Comp Metabolic Panel 09/17/2013 [facility] Sodium 141 mmol/L N 133-[address] [place] [address] [phone] Potassium 3.8 mmol/L N 3.7-5.6 Chloride 107 mmol/L N 101-111 Co2 Carbon Dioxide 28 mmol/L N 22-32 Anion Gap 6 mmol/L N 2-11 Glucose 46 mg/dL Low 70-100 Blood Urea Nitrogen 17 mg/dL N 6-24 Creatinine 0.90 mg/dL N 0.51-0.95 BUN/Creatinine Ratio 18.9 N 8-20 Calcium 9.0 mg/dL N 8.6-10.3 Total Protein 6.2 g/dL Low 6.4-8.9 Albumin 3.8 g/dL N 3.2-5.2 Globulin 2.4 g/dL N 2-4 Albumin/Globulin Ratio 1.6 N 1-3 Total Bilirubin 0.30 mg/dL N 0.2-1.0 Alkaline Phosphatase 60 U/L N 34-104 Alt 13 U/L N 7-52 Ast 15 U/L N 13-39 Egfr Non- 65.0 N >60 Egfr 83.6 N >60 47 Iron & Iron Binding 09/17/2013 [facility] Iron 45 g/dL Low 50-212 Capacity [address] [place] [address] [phone] Unsaturated Iron Binding 242 g/dL N Total Iron Binding Capacity 287 g/dL N 250-450 % Iron Saturation 16 % N 15-55 Laboratory test 09/17/2013 [facility] Ferritin 57.8 ng/mL N 11 -307 finding [address] [place] [address] [phone] Vitamin B12 1192 pg/mL High 180-914 48 Comp Metabolic Panel 06/22/2013 [facility] Sodium 140 mmol/L N 133-145 [address] [place] [address] [phone] Potassium 3.6 mmol/L Low 3.7-5.6 Chloride 106 mmol/L N 101-111 Co2 Carbon Dioxide 29 mmol/L N 22-32 Anion Gap 5 mmol/L N 2-11 Glucose 84 mg/dL N 70-100 Blood Urea Nitrogen 19 mg/dL N 6-24 Creatinine 0.88 mg/dL N 0.51-0.95 BUN/Creatinine Ratio 21.6 High 8-20 Calcium 8.8 mg/dL N 8.6-10.3 Total Protein 6.3 g/dL Low 6.4-8.9 Albumin 3.9 g/dL N 3.2-5.2 Globulin 2.4 g/dL N 2-4 Albumin/Globulin Ratio 1.6 N 1-3 Total Bilirubin 0.50 mg/dL N 0.2-1.0 Alkaline Phosphatase 62 U/L N 34-104 Alt 16 U/L N 7-52 Ast 16 U/L N 13-39 Egfr Non- 66.7 N >60 Egfr 85.8 N >60 50 Lipid Profile 06/22/2013 [facility] Triglycerides 153 mg/dL N 51 (Trig/Chol/HDL) [address] [place] [address] [phone] Cholesterol 176 mg/dL N 52 HDL Cholesterol 44.9 mg/dL N 53 LDL Cholesterol 101 mg/dL N 54 Surgical Pathology 05/22/2013 [facility] S RUN DATE: [address] 05/[address]/ <[place] [address] NOTE> [phone] Urinalysis 02/12/2012 [facility] Urine Color Yellow [address] [place] [address] [phone] Urine Appearance Clear Urine Specific [place] 1.026 1.010-1.030 Urine Esterase 3+ Abnormal Negative Urine Nitrate Negative Negative Urine Urobilinogen Negative Negative Urine Protein Negative Negative Urine pH 5.5 5-9 Urine Blood Negative Negative Urine Ketones Negative Negative Urine Bilirubin Negative Negative Urine Glucose Negative Negative Urine Microscopic 02/12/2012 [facility] Urine WBC 2+ (>10-30 None Seen [address] /hpf) [place] [address] [phone] Urine RBC None Seen None Seen Urine Mucus Present /lpf Absent Urine Epithelial Cells 1+ Squamous /hpf None Seen Urine Culture And 02/12/2012 [facility] Urine Culture (SEE NOTE ) [address] [place] [address] [phone] CBC Auto Diff 02/12/2012 [facility] White Blood 4.0 Low 4.8-[address] Count 10^3/uL 0.8 [place] [address] [phone] Red Blood Count 4.55 10^6/uL 4.0-5.4 Hemoglobin [...] Cells % 0.1 Comp Metabolic Panel 02/12/2012 [facility] Sodium 140 mmol/L 133-145 [address] [place] [address] [phone] Potassium 3.6 mmol/L 3.5-5.0 Chloride 108 mmol/L [...] Egfr Non- 74.7 >60 Egfr 96.1 >60 58 Laboratory test finding 02/12/2012 [facility] Amylase 46 U/L 20-120 [address] [place] [address] [phone] Lipase 32 U/L 22-51 Troponin I 0 ng/mL 0-0.06 59 C Reactive Protein 0.6 mg/dL High Less Than 0.5 Lipid Profile 06/04/2011 [facility] Triglyceride 92 mg/dL 40- 200 (Trig/Chol/HDL) [address] [place] [address] [phone] Cholesterol 183 mg/dL Less Than 200 60 High Density Lipoprotein 48 mg/dL 40-60 61 Cholesterol/HDL Ratio 3.81 AVERAGE 1-4.44 Low Density Lipoprotein 117 mg/dL High Less Than 100 62 Laboratory test 06/04/2011 [facility] TSH 0.40 MIU/ML 0.34- 5.[address] [place] [address] [phone] Vitamin D, 25 06/04/2011 [facility] 25-Hydroxy <4.0 ng/mL () Hydroxy [address] Vitamin D2 [place] [address] [phone] 25-Hydroxy Vitamin D3 37 ng/mL () 25-Hydroxy Vitamin D Total 37 ng/mL () 63 Vitamin D 1,25 06/04/2011 [facility] Vitamin D, 1,25 43 pg/mL 18-78 64 And Vitamin [address] Dihydroxy D,2 [place] [address] [phone] CBC Auto Diff 01/27/2011 [facility] White Blood 7.0 CUMM 4.8- 10.[address] [place] [address] [phone] Red Cell Count 4.87 CUMM 4.2-5.4 Hemoglobin [...] Eosinophils 0.1 0-0.6 Abs Basophils 0 0-0.2 65 Comp Metabolic Panel 01/27/2011 [facility] Sodium 137 mmol/L 135-[address] [place] [address] [phone] Potassium 3.5 mmol/L 3.5-5.0 Chloride 99 mmol/L Low 101-111 Co2 (Carbon Dioxide) 29.0 mmol/L 22-32 Anion Gap 9.0 mmol/L 2-11 66 Glucose 81 mg/dL 70-100 BUN 12 mg/dL 6-24 Creatinine 0.9 mg/dL 0.50-1.40 One Over Creatinine 1.11 BUN/Creatinine Ratio 13.3 8-20 Calcium 8.9 mg/dL 8.1-9.9 Total Protein 7.3 GM/DL 6.2-8.1 Albumin 4.0 GM/DL 3.6-5.4 Globulin 3.3 GM/DL 2-4 Albumin/Globulin Ratio 1.2 1-3 Bilirubin Total 0.5 mg/dL 0.4-1.5 67 Alkaline Phosphatase 88 U/L 30-110 Alt (SGPT) 29 U/L 14-54 Ast (Sgot) 28 U/L 12-42 eGFR Non- 65.5 > 60 eGFR 84.2 > 60 68 Laboratory test 01/27/2011 [facility] Lipase 34 U/L 22-51 finding [address] [place] [address] [phone] Comp Metabolic Panel 07/25/2010 [facility] Sodium 141 mmol/L 135-145 [address] [place] [address] [phone] Potassium 4.3 mmol/L 3.5-5.0 Chloride 107 mmol/L 101-111 Co2 (Carbon Dioxide) 28.0 mmol/L 22-32 Anion Gap 6.0 mmol/L 2-11 69 Glucose 92 mg/dL 70-100 BUN 19 mg/dL 6-24 Creatinine 0.90 mg/dL 0.50-1.40 One Over Creatinine 1.10 BUN/Creatinine Ratio 21.1 High 8-20 Calcium 9.0 mg/dL 8.1-9.9 Total Protein 6.4 GM/DL 6.2-8.1 Albumin 3.9 GM/DL 3.6-5.4 Globulin 2.5 GM/DL 2-4 Albumin/Globulin Ratio 1.6 1-3 Bilirubin Total 0.6 mg/dL 0.4-1.5 70 Alkaline Phosphatase 76 U/L 30-110 Alt (SGPT) 38 U/L 14-54 Ast (Sgot) 32 U/L 12-42 eGFR Non- 65.7 > 60 eGFR 84.6 > 60 71 Lipid Profile 07/25/2010 [facility] Triglyceride 145 mg/dL 40 -200 (Trig/Chol/HDL) [address] [place] [address] [phone] Cholesterol 227 mg/dL High Less Than 200 72 High Density Lipoprotein 59 mg/dL 40-60 73 Cholesterol/HDL Ratio 3.85 AVERAGE 1-4.44 Low Density Lipoprotein 139 mg/dL High Less Than 100 74 Hemogram 04/23/2010 [facility] White Blood Count 6.1 CUMM 4.8 -10.8 [address] [place] [address] [phone] Red Cell Count 4.38 CUMM 4.2-5.4 Hemoglobin 12.2 g/dL 12.0-16.0 Hematocrit 37 % 35-47 Mean Corpuscular Volume 84 um3 79-97 Mean Corpuscular Hemoglob 28 pg 27-31 Mean Corpuscular HGB Cone 33 g/dL 32-36 Redcell Distribution WDTH 13 % 10.5-15 Platelet Count 231 CUMM 150-450 Mean Platelet Volume 9.4 um3 7.4-10.4 Basic Metabolic Panel 04/23/2010 [facility] Sodium 140 mmol/L 135-145 [address] [place] [address] [phone] Potassium 3.7 mmol/L 3.5-5.0 Chloride 106 mmol/L 101-111 Co2 (Carbon Dioxide) 28.0 mmol/L 22-32 Anion Gap 6.0 mmol/L 2-11 75 Glucose 98 mg/dL 70-100 BUN 15 mg/dL 6-24 Creatinine 0.90 mg/dL 0.50-1.40 One Over Creatinine 1.10 BUN/Creatinine Ratio 16.7 8-20 Calcium 9.0 mg/dL 8.1-9.9 eGFR Non- 65.7 > 60 eGFR 84.6 > 60 76 Rapid Influenza 04/23/2010 [facility] Rapid Influenza Cell culture 77 A And B Anitgen 101 [facility] A B Antigen mable <SEE NOTE> [place] [address] [phone] Rapid Influenza A B Antigen NEGATIVE BY IMMU <SEE NOTE> 78 Laboratory test 03/09/2010 [facility] Clotest NEGATIVE finding [address] [place] [address] [phone] Surgical 03/09/2010 [facility] Surgical [address] Pathology --- <[place] [address] NOTE> [phone] CBC With 01/27/2010 [facility] White Blood 8.8 CUMM 4.8-1 Electronic Diff [address] Count 0.8 [place] [address] [phone] Red Cell Count 4.85 CUMM 4.2-5.4 Hemoglobin [...] 0.2 0-0.6 Abs Basophils 0 0-0.2 80 Comp Metabolic Panel 01/27/2010 [facility] Sodium 136 mmol/L 135-[address] [place], [place] [address] [phone] Potassium 4.0 mmol/L 3.5-5.0 Chloride 101 mmol/L 101-111 Co2 (Carbon Dioxide) 29.0 mmol/L 22-32 Anion Gap 6.0 mmol/L 2-11 81 Glucose 93 mg/dL 70-100 82 BUN 15 mg/dL 6-24 Creatinine 0.90 mg/dL 0.50-1.40 One Over Creatinine 1.10 BUN/Creatinine Ratio 16.7 8-20 Calcium 9.8 mg/dL 8.1-9.9 Total Protein 7.5 GM/DL 6.2-8.1 Albumin 4.2 GM/DL 3.6-5.4 Globulin 3.3 GM/DL 2-4 Albumin/Globulin Ratio 1.3 1-3 Bilirubin Total 0.5 mg/dL 0.4-1.5 83 Alkaline Phosphatase 84 U/L 30-110 Alt (SGPT) 19 U/L 14-54 Ast (Sgot) 20 U/L 12-42 eGFR Non- 69.9 > 60 eGFR 84.6 > 60 84 Laboratory test 01/27/2010 [facility] C Reactive 0.6 mg/dL High Less Than finding [address] Protein 0.5 [place] [address] [phone] Laboratory test 01/23/2010 [facility] TSH 0.47 0.34-5.[address] MIU/[place] [address] [phone] Basic Metabolic 01/23/2010 [facility] Sodium 139 mmol/L 135- [address] [place] [address] [phone] Potassium 3.9 mmol/L 3.5-5.0 Chloride 106 mmol/L 101-111 Co2 (Carbon Dioxide) 25.0 mmol/L 22-32 Anion Gap 8.0 mmol/L 2-11 85 Glucose 95 mg/dL 70-100 86 BUN 16 mg/dL 6-24 Creatinine 0.80 mg/dL 0.50-1.40 One Over Creatinine 1.20 BUN/Creatinine Ratio 20.0 8-20 Calcium 8.7 mg/dL 8.1-9.9 eGFR Non- 80.1 > 60 eGFR 96.9 > 60 87 CBC With 01/16/2010 [facility] White Blood 8.1 CUMM 4.8-10.8 Electronic Diff [address] [place] [address] [phone] Red Cell Count 4.82 CUMM 4.2-5.4 Hemoglobin 13.7 g/dL 12.0-16.0 Hematocrit 41 % 35-47 Mean Corpuscular Volume 84 um3 79-97 Mean Corpuscular Hemoglob 28 pg 27-31 Mean Corpuscular HGB Cone 34 g/dL 32-36 Redcell Distribution WDTH 13 % 10.5-15 Platelet Count 314 CUMM 150-450 Mean Platelet Volume 7.9 um3 7.4-10.4 Manual Differential 01/16/2010 [facility] Polysegmented 71 % 38-[address] [address] [phone] Lymphocyte 18 % Low 25-47 Monocyte 8 % 0-13 Eosinophil 2 % 0-6 Atypical Lymph 1 % 0-6 Absolute Neutrophil Count 5.7 RBC Morphology NORMAL Urinalysis W/Microscopic 01/16/2010 [facility] Ua Color YELLOW Yellow [address] [place] [address] [phone] Appearance-Urine CLEAR Clear Specific [place]-Ur 1.021 1.010-1.030 Esterase-Urine 1+ Abnormal Negative Nitrite NEGATIVE Negative Edqrsdzkaojl-Ek-JWA NEGATIVE Negative Protein-Urine NEGATIVE Negative PH-Urine 5.5 5-9 Blood-Urine NEGATIVE Negative Ketones-Urine NEGATIVE Negative Bilirubin-Ur NEGATIVE Negative Glucose-Urine NEGATIVE Negative Hyaline Casts-Urine 0-1 0-2 WBC-Urine 1-5 0-5 RBC-Urine 0-2 0-2 Mucus Urine SMALL None Epith Cells-Ur FEW None Comp Metabolic Panel 01/16/2010 [facility] Sodium 138 mmol/L 135-[address] [place] [address] [phone] Potassium 3.4 mmol/L Low 3.5-5.0 Chloride 105 mmol/L 101-111 Co2 (Carbon Dioxide) 25.0 mmol/L 22-32 Anion Gap 8.0 mmol/L 2-11 88 Glucose 87 mg/dL 70-100 89 BUN 12 mg/dL 6-24 Creatinine 1.00 mg/dL 0.50-1.40 One Over Creatinine 1.00 BUN/Creatinine Ratio 12.0 8-20 Calcium 9.2 mg/dL 8.1-9.9 Total Protein 7.3 GM/DL 6.2-8.1 Albumin 4.3 GM/DL 3.6-5.4 Globulin 3.0 GM/DL 2-4 Albumin/Globulin Ratio 1.4 1-3 Bilirubin Total 0.5 mg/dL 0.4-1.5 90 Alkaline Phosphatase 81 U/L 30-110 Alt (SGPT) 21 U/L 14-54 Ast (Sgot) 25 U/L 12-42 eGFR Non- 61.9 > 60 eGFR 74.9 > 60 91 Laboratory 01/16/2010 [facility] TSH 0.84 MIU/ML 0.34-5.60 test finding [address] [place] [address] [phone] Urine Culture 01/16/2010 [facility] Urine Susceptibility t 92 & Sensitivi [address] Culture <SEE NOTE> [place] [address] Sensitivi [phone] Urine Culture Sensitivi NORMAL BERTHA 93 Laboratory test 01/16/2010 [facility] Troponin-I 0 NG/ML Low 0.0-0.06 [address] [place] [address] [phone] Surgical 10/20/2009 [facility] Surgical --------- [address] Pathology ------- [place] [address] <SEE [phone] NOTE> 1 SEE RESULT BELOW Name: ESPINOSA MUNATAMARA : [address]: Sanjeev Rose MD Acct: [id number] Unit: [id number] AGE: 62 Location: [facility] Re01/23/18 SEX: F Status: REG REF SPEC: [id number] THIERRY: 01/23/[address] [facility] [address]: Sanjeev Rose MD REQ: [id number] RECD: 01/23/18 STATUS: SOUT _ ORDERED: LEVEL 3 COMMENTS: [id number] FINAL DIAGNOSIS Left arm, excision: -- Angiolipoma. CLINICAL HISTORY No history given GROSS DESCRIPTION The specimen is received in formalin labeled, Left Arm Mass, and consists of a 1.2 x 0.9 x 0.4 cm horton-red ovoid well encapsulated lobulated adipose tissue fragment. The cut surface is horton-red and homogeneous. The specimen is inked, serially sectioned and entirely submitted in one cassette. Signed by and Reported on: Yolande Sawant MD 01/24/18 5560 END OF REPORT DEPARTMENT OF PATHOLOGY, [address] [place] [address] Cleve Bowen M.D. Director [facility] # [id number] 2 Because ethnic data is not always [...] 5 Kidney failure <15 (or dialysis) 3 SEE RESULT BELOW Name: TAMARA STARKS : [address]: Christian Kahn MD Acct: [id number] Unit: [id number] AGE: 62 [facility] SEX: F Status: REG REF SPEC: [id number] THIERRY: 12/26/[address]: Berto Kahn MD REQ: [id number] RECD: 12/26/17 STATUS: COMP _ SOURCE: BLOOD,VENO SPDESC: ORDERED: Blood Cult Procedure Result Reported Site Aerobic Culture Bottle Final 12/31/17- 0714 ML No Growth Day 5 Anaerobic Culture Bottle Final 12/31/17- 0714 ML No Growth Day 5 * ML - Main Lab . END OF REPORT DEPARTMENT OF PATHOLOGY, [address] [place] [address] Cleve Bowen M.D. Director [facility] # [id number] 4 SEE RESULT BELOW Name: TAMARA STARKS : [address]: Christian Kahn MD Acct: [id number] Unit: [id number] AGE: 61 Location: [facility] Re11/05/17 SEX: F Status: REG REF SPEC: [id number] THIERRY: 11/05/17-[address]: Berto Kahn MD REQ: [id number] RECD: 11/05/17 STATUS: COMP _ SOURCE: URINE SPDES: ORDERED: Urine Culture COMMENTS: [id number] Urine Source: Random Procedure Result Reported Site Urine Culture Final 11/06/17- 1619 ML No growth of clinically significant organisms * ML - Main Lab . END OF REPORT DEPARTMENT OF PATHOLOGY, [address] [place] [address] Cleve Bowen M.D. Director [facility] # [id number] 5 SEE RESULT BELOW Name: TAMARA STARKS DOB: [address]: Christian Kahn MD Acct: [id number] Unit: [id number] AGE: 61 Location: [facility] Re09/09/17 SEX: F Status: REG REF SPEC: [id number] THIERRY: 09/09/[address] [facility] [address]: Berto Kahn MD REQ: [id number] RECD: 09/09/17 STATUS: COMP _ SOURCE: URINE SPDESC: ORDERED: Urine Culture Procedure Result Reported Site Urine Culture Final 09/12/17- 821 ML Organism 1 ESCHERICHIA COLI [place] Count 75-100,000 (Many) CFU/ML Organism 2 STAPHYLOCOCCUS AUREUS [place] Count 1-10,000 (Few) CFU/ML 1. ESCHERICHIA COLI [...] CONTINUED ON NEXT PAGE DEPARTMENT OF PATHOLOGY, [address] [place] [address] Cleve Bowen M.D. Director [facility] # [id number] Patient: TAMARA STARKS [id number] (Continued) Specimen: [id number] Collected: 09/09/17 Received: 09/09/17-1147 (Continued) Procedure Result Reported Site Urine Culture [...] These antibiotics are not available in the [facility] Formulary Contact the Microbiology Department for any additional antibiotic reporting. Contact the Microbiology Department for any additional antibiotic reporting. * - Main Lab . END OF REPORT DEPARTMENT OF PATHOLOGY, [address] [place] [address] Cleve Bowen M.D. Director [facility] # [id number] 6 Because ethnic data is not always readily [...] 15-29 5 Kidney failure <15 (or dialysis) 7 Desirable: <150 Borderline High: 150-199 High: 200-499 Very High: >500 8 Desirable: <200 Borderline High: 200-239 High: >239 9 Low: <40 Desirable: 40-60 High: >60 10 Desirable: <100 Near Optimal: 100-129 Borderline High: 130-159 High: 160-189 Very High: >189 11 Because ethnic data is not always readily [...] 15-29 5 Kidney failure <15 (or dialysis) 12 [facility] Severe Sepsis and Septic Shock Management Bundle Measure requires all lactic acids initially measuring >2.0 mmol/L be repeated. 13 Because ethnic data is not always readily [...] 15-29 5 Kidney failure <15 (or dialysis) 14 Test Performed by: [place] [address] 15 Test Performed by: [place] [address] 16 Test Performed by: [place] [address] 17 FASTING 10 HOUR 18 Desirable <150 Borderline high 150-199 High 200-499 Very High >500 19 Desirable <200 Borderline high 200-239 High >239 20 Low <40 Desirable: 40-60 High: >60 21 Desirable: <100 mg/dL Near Optimal: 100-129 mg/dL Borderline High: 130-159 mg/dL High: 160-189 mg/dL Very High: >189 mg/dL 22 FASTING 10 HOUR 23 [id number] 24 SEE RESULT BELOW Name: TAMARA STARKS : [address]: Raheel Lainez MD Acct: [id number] Unit: [id number] AGE: 60 Location: [facility] Re01/19/16 SEX: F Status: REG REF SPEC: [id number] THIERRY: 01/19/16-[address] [facility] [address]: Raheel Lainez MD REQ: [id number] RECD: 01/19/16 STATUS: ALEIDA TUBBS DR: Berto Armendariz MD _ SOURCE: GAS [facility]: ORDERED: Clotest COMMENTS: [id number] Procedure Result Reported Site Clotest Final 01/20/16821 ML Clotest Negative * ML - MAIN LAB ([facility]) . END OF REPORT * ML=Testing performed at Main Lab DEPARTMENT OF PATHOLOGY, [address] [place] [address] Cleve Bowen M.D. Director [facility] # [id number] 25 Because ethnic data is not always [...] 5 Kidney failure <15 (or dialysis) 26 Reference Range and Interpretation: TnI (ng/mL) Interpretation Less Than 0.03 ng/mL Not supportive of diagnosis of RI 0.03 - 0.50 ng/mL Indeterminate: suggest serial studies if clinically indicated. Greater than 0.5 ng/mL Consistent with diagnosis of RI 27 Please note: The following may produce a false positive D Dimer test: - Rheumatoid factor greater than 60 IU/ml - Plasma hemoglobin greater than 0.05 gm/dl - Bilirubin greater than 50 mg/dl - Lipids greater than 1000 mg/dl - FDP greater than 20 ug/ml 28 Reference Range and Interpretation: TnI (ng/mL) Interpretation Less Than 0.03 ng/mL Not supportive of diagnosis of RI 0.03 - 0.50 ng/mL Indeterminate: suggest serial studies if clinically indicated. Greater than 0.5 ng/mL Consistent with diagnosis of RI 29 Because ethnic data is not always readily [...] 15-29 5 Kidney failure <15 (or dialysis) 30 SEE RESULT BELOW Name: TAMARA STARKS : [address]: Geeta Blake MD Acct: [id number] Unit: [id number] AGE: 59 Location: ED Re06/01/15 SEX: F Status: DEP ER SPEC: [id number] THIERRY: 06/01/15-[address] [facility] [address]: Tran Castillo NP REQ: [id number] RECD: 06/01/15 STATUS: ALEIDA TUBBS DR: Rory Kahn MD _ SOURCE: URINE SPDESC: ORDERED: Urine Culture Procedure Result Reported Site Urine Culture Final 06/03/15- 0818 ML Organism 1 ESCHERICHIA COLI [place] Count 75-100,000 (Many) CFU/ML 1. ESCHERICHIA COLI [...] antibiotic reporting. * ML - MAIN LAB ([facility]) . END OF REPORT * ML=Testing performed at Main Lab DEPARTMENT OF PATHOLOGY, [address] [place] [address] Cleve Bowen M.D. Director [facility] # [id number] 31 FASTING 32 Desirable <150 Borderline high 150-199 High 200-499 Very High >500 33 Desirable <200 Borderline high 200-239 High >239 34 Low <40 Desirable: 40-60 High: >60 35 Desirable: <100 mg/dL Near Optimal: 100-129 mg/dL Borderline High: 130-159 mg/dL High: 160-189 mg/dL Very High: >189 mg/dL 36 Test Performed by: [address] [address] Housekeeping Supervisor: Jordan Thornton II, M.D., Ph.D. 37 Because ethnic data is not always [...] 5 Kidney failure <15 (or dialysis) 38 SEE RESULT BELOW Name: JESÚS TOROTAMARA : [address]: Giulia Cedeno MD Acct: [id number] Unit: [id number] AGE: 58 Location: [facility] Re09/07/14 SEX: F Status: REG [facility] SPEC: [id number] THIERRY: 09/07/14- SUBM DR: Giulia Cedeno MD REQ: [id number] RECD: 09/07/14-8 STATUS: SOUT _ ORDERED: Decal, LEVEL III FINAL DIAGNOSIS Trapezium, right wrist, excision: -- Benign bone and cartilage with degenerative change. PRE-OPERATIVE DIAGNOSIS Osteoarthritis right hand. GROSS DESCRIPTION The specimen is received in formalin labeled, Trapezium Right Wrist, and consists of a 3.8 x 3.2 x 1.2 cm aggregate of horton-pink irregular bone fragments. Environmental Department Manager sections, one cassette following decalcification. MICROSCOPIC DESCRIPTION Signed (signature on file) Yolande Sawant MD 1539 END OF REPORT * ML=Testing performed at Main Lab DEPARTMENT OF PATHOLOGY, [address] [place] [address] Cleve Bowen M.D. Director [facility] # [id number] 39 Because ethnic data is not always [...] 5 Kidney failure <15 (or dialysis) 40 Reference Range and Interpretation: TnI (ng/mL) Interpretation Less Than 0.03 ng/mL Not supportive of diagnosis of RI 0.03 - 0.50 ng/mL Indeterminate: suggest serial studies if clinically indicated. Greater than 0.5 ng/mL Consistent with diagnosis of RI 41 Because ethnic data is not always readily [...] 15-29 5 Kidney failure <15 (or dialysis) 42 Reference Range and Interpretation: TnI (ng/mL) Interpretation Less Than 0.03 ng/mL Not supportive of diagnosis of RI 0.03 - 0.50 ng/mL Indeterminate: suggest serial studies if clinically indicated. Greater than 0.5 ng/mL Consistent with diagnosis of RI 43 Because ethnic data is not always [...] 145 to 180 Deficient Range <145 45 RUN DATE: 12/03/13 [facility] LAB LIVE PAGE 1 RUN TIME: 9148 [address] [place], [place] [address] Specimen Inquiry Name: TAMARA STARKS : [address]: Raheel Lainez MD Acct: [id number] Unit: [id number] AGE: 57 Location: ENDO Re12/02/13 SEX: F Status: REG REF SPEC: [id number] THIERRY: 12/02/13- SUBM DR: Raheel Lainez MD REQ: [id number] RECD: 12/02/130 STATUS: BAUDILIO TUBBS DR: Berto Armendariz MD [...] specimen is received in formalin labeled Tamara Jesús Gomeson, Biopsy Cecal Polyp and consists of a 1.1 x 0.2 x 0.1 cm. horton-pink, irregular to elongate soft tissue fragment. Submitted entirely, one cassette. 2. The specimen is received in formalin labeled Tamara Espinosa Cobon, Biopsy Colon Polyp at 20 cm. and consists of a 0.3 x 0.2 x 0.2 cm. horton-pink, polypoid soft tissue fragment. Submitted entirely, one cassette. CONTINUED ON NEXT PAGE * ML=Testing performed at Main Lab DEPARTMENT OF PATHOLOGY, [facility] [employer] [place] [address] Cleve Bowen M.D. Director [facility] # [id number] RUN DATE: 12/03/13 [facility] LAB LIVE PAGE 2 RUN TIME: 1521 [facility] [address] [place], [place] [address] Specimen Inquiry Patient: TAMARA STARKS [id number] (Continued) GROSS DESCRIPTION (Continued) Signed (signature on file) Cleve Bowen MD 1521 END OF REPORT * ML=Testing performed at Main Lab DEPARTMENT OF PATHOLOGY, [facility] [employer] [place], [place] [address] Cleve Bowen M.D. Director [facility] # [id number] 46 It is recognized that currently available assays [...] 95% confidence interval of 99.78 to 99.96%. 47 Because ethnic data is not always readily [...] 15-29 5 Kidney failure <15 (or dialysis) 48 Normal Range 180 to 914 Indeterminate Range 145 to 180 Deficient Range <145 49 PT IS FASTING 50 Because ethnic data is not always readily [...] 15-29 5 Kidney failure <15 (or dialysis) 51 Desirable <150 Borderline high 150-199 High 200-499 Very High >500 52 Desirable <200 Borderline high 200-239 High >239 53 Low <40 Desirable: 40-60 High: >60 54 Desirable <100 Near Optimal 100-129 Borderline high 130-159 High 160-189 Very High >189 55 RUN DATE: 05/25/13 [facility] LAB LIVE PAGE 1 RUN TIME: [address] [place] [address] Specimen Inquiry Name: TAMARA STARKS : [address]: Raheel Lainez MD Acct: [id number] Unit: [id number] AGE: 57 Location: ENDO Re05/22/13 SEX: F Status: REG REF SPEC: [id number] THIERRY: 05/22/13- SUBM DR: Raheel Lainez MD REQ: [id number] RECD: 05/22/13-1218 STATUS: BAUDILIO TUBBS DR: Kandis [...] is received in formalin labeled Tamara Espinosa Mireyaevelyn, Esophagus Biopsies and consists of two, horton-pink, irregular, soft tissue fragments measuring 0.3 x 0.2 x 0.2 cm. and 0.4 x 0.2 x 0.1 cm. Submitted entirely, one cassette. 2. The specimen is received in formalin labeled Tamara Gomeson, Colon Polyp at 25 cm. and consists of two, horton-red, irregular, soft tissue fragments averaging 0.3 x 0.2 x 0.1 cm. Submitted entirely, one cassette. CONTINUED ON NEXT PAGE * ML=Testing performed at Main Lab DEPARTMENT OF PATHOLOGY, [facility] [employer] [place] [address] Cleve Bowen M.D. Director [facility] Permit #[id number] RUN DATE: 05/25/13 [facility] LAB LIVE PAGE 2 RUN TIME: [address] [place] [address] Specimen Inquiry Patient: TAMARA STARKS [id number] (Continued) GROSS DESCRIPTION (Continued) Signed (signature on file) Cleve Boewn MD 1641 END OF REPORT * ML=Testing performed at Main Lab DEPARTMENT OF PATHOLOGY, [facility] [employer] [place], [place] [address] Cleve Bowen M.D. Director [facility] Permit #[id number] 56 2+ (>10-30 /hpf) 57 RUN DATE: 02/14/12 [facility] LAB LIVE PAGE 1 RUN TIME: 1221 [facility] [address] [place], [place] [address] Specimen Inquiry Name: TAMARA STARKS : [address]: Parmjit Durbin MD Acct: [id number] Unit: [id number] AGE: 56 Location: ED Re02/12/12 SEX: F Status: DEP ER SPEC: [id number] THIERRY: 02/12/[address]: Parmjit Durbin MD REQ: [id number] RECD: 02/12/12 STATUS: ALEIDA TUBBS DR: Christiano Garcia MD _ SOURCE: URINE [facility]: ORDERED: Urine Culture Procedure Result Verified Site Urine Culture Final 02/14/12- 1221 ML Organism 1 STREP GROUP B [place] Count >100,000 (Many) CFU/ML Organism 2 NORMAL BERTHA [place] Count 10-25,000 (Moderate) CFU/ML Susceptibility testing of penicillins and other B-lactams approved by FDA for treatment of Streptococcus pyogenes (Group A Strep) and Streptococcus agalactiae (Group B Strep) is not necessary for clinical purposes and need not be done routinely, since as with vancomycin, resistant strains have not been recognized. (CLSI G839-Q43;p.66) Positive isolates will be saved for one week. Please call the Microbiology Laboratory if further susceptibility testing is needed. END OF REPORT * ML=Testing performed at Main Lab DEPARTMENT OF PATHOLOGY, [address] [place] [address] Cleve Bowen M.D. Director [facility] Permit #[id number] 58 Because ethnic data is not always readily [...] 15-29 5 Kidney failure <15 (or dialysis) 59 Reference Range and Interpretation: TnI (ng/ml) Interpretation Less Than 0.06 ng/mL Not supportive of diagnosis of RI 0.06 - 0.50 ng/ml Indeterminate: suggest serial studies if clinically indicated. Greater than 0.5 ng/mL Consistent with diagnosis of RI 60 CHOLESTEROL INTERPRETATION: Desirable: Less than 200 MG/DL Borderline-High Risk: 200-239 MG/DL High-Risk: 240 MG/DL and over 61 HDL INTERPRETATION: Undesirable: High Risk: Less than 40 MG/DL Desirable: Low Risk: Greater than 60 MG/DL 62 LDL INTERPRETATION: Low Risk Optimal Level: LDL Less than 100 MG/DL Near or Above Optimal: LDL 100-129 MG/DL Borderline High Risk: LDL 130-159 MG/DL High Risk: LDL 160-189 MG/DL Very High Risk: LDL Greater than 189 MG/DL 63 -- REFERENCE VALUE -- 25-HYDROXY D TOTAL (D2+D3) Optimum levels in the normal population are 25-80 Test Performed by: [facility] Dpt of Lab Med and Pathology [address] [place] [address] Housekeeping Supervisor: Scotty Bishop III, M.D. 64 Test Performed by: [facility] of Lab Med [facility] Pathology [address] [place] [address] Housekeeping Supervisor: Scotty Bishop III, M.D. 65 Lymphopenia % 66 Anion gap measurement may be of limited value in the presence of any alkalosis, especially in a combined acid base disorder. . 67 A metabolite of Naproxen, O-desmethylnaproxen, has been shown to interfere with the Jendrassik-Jr method for measuring total bilirubin. Samples from patients who have taken Naproxen have shown spurious elevation in total bilirubin levels. 68 Because ethnic data is not always readily [...] 15-29 5 Kidney failure <15 (or dialysis) 69 Anion gap measurement may be of limited value in the presence of any alkalosis, especially in a combined acid base disorder. . 70 A metabolite of Naproxen, O-desmethylnaproxen, has been shown to interfere with the Jendrassik-Friona method for measuring total bilirubin. Samples from patients who have taken Naproxen have shown spurious elevation in total bilirubin levels. 71 Because ethnic data is not always readily [...] 15-29 5 Kidney failure <15 (or dialysis) 72 CHOLESTEROL INTERPRETATION: Desirable: Less than 200 MG/DL Borderline-High Risk: 200-239 MG/DL High-Risk: 240 MG/DL and over 73 HDL INTERPRETATION: Undesirable: High Risk: Less than 40 MG/DL Desirable: Low Risk: Greater than 60 MG/DL 74 LDL INTERPRETATION: Low Risk Optimal Level: LDL Less than 100 MG/DL Near or Above Optimal: LDL 100-129 MG/DL Borderline High Risk: LDL 130-159 MG/DL High Risk: LDL 160-189 MG/DL Very High Risk: LDL Greater than 189 MG/DL 75 Anion gap measurement may be of limited value in the presence of any alkalosis, especially in a combined acid base disorder. . 76 Because ethnic data is not always readily [...] 15-29 5 Kidney failure <15 (or dialysis) 77 Cell culture testing can be performed to confirm negative test results and to assist in detecting other viruses that can produce similar clinical symptoms. Please notify Microbiology Lab if further testing is desired. 78 NEGATIVE BY IMMUNOASSAY NEGATIVE BY IMMUNOASSAY 79 ---- RUN DATE: 03/13/10 [facility] NMI LIVE PAGE 1 RUN TIME: 1144 Specimen Inquiry RUN USER: INTERFACE -- Name: TAMARA STARKS Status: REG REF Re03/09/10 Age/Sex: 54/F Unit#: [id number] Location: [address] [place] [address].O.B. : [birth year] -- Specimen: [id number] SOUT Spec Date: 03/09/[address]: Raheel graham MD Spec Type: SURGICAL P Received: 03/10/10-1713 Copies to: Christiano howe MD SPECIMEN BIOPSY [...] 03/13/10 1143 -- -- DEPARTMENT OF PATHOLOGY, [address] [place] [address] [facility] Permit #[id number] Cleve Bowen M.D. Director Randal Dumont M.D. Surface Logging Systems Logger Dir angela -- 80 Lymphopenia % 81 Anion gap measurement may be of limited value in the presence of any alkalosis, especially in a combined acid base disorder. . 82 Note change in reference range as of 11/06/07. The change was based on recommendations from the [place] [employer]. 83 A metabolite of Naproxen, O-desmethylnaproxen, has been shown to interfere with the Jendrassik-Friona method for measuring total bilirubin. Samples from patients who have taken Naproxen have shown spurious elevation in total bilirubin levels. 84 Because ethnic data is not always readily [...] 15-29 5 Kidney failure <15 (or dialysis) 85 Anion gap measurement may be of limited value in the presence of any alkalosis, especially in a combined acid base disorder. . 86 Note change in reference range as of 11/06/07. The change was based on recommendations from the [place] [employer]. 87 Because ethnic data is not always [...] 5 Kidney failure <15 (or dialysis) 88 Anion gap measurement may be of limited value in the presence of any alkalosis, especially in a combined acid base disorder. . 89 Note change in reference range as of 11/06/07. The change was based on recommendations from the [place] [employer]. 90 A metabolite of Naproxen, O-desmethylnaproxen, has been shown to interfere with the Jendrassik-Jr method for measuring total bilirubin. Samples from patients who have taken Naproxen have shown spurious elevation in total bilirubin levels. 91 Because ethnic data is not always readily [...] 15-29 5 Kidney failure <15 (or dialysis) 92 Susceptibility testing of penicillins and other B-lactams approved by FDA for treatment of Streptococcus pyogenes (Group A Strep) and Streptococcus agalactiae (Group B Strep) is not necessary for clinical purposes and need not be done routinely, since as with vancomycin, resistant strains have not been recognized. (CLSI E511-W10;p.66) Positive isolates will be saved for one week. Please call the Microbiology Laboratory if further susceptibility testing is needed. 93 50^25-50,000 ORGANISMS/ML (MODERATE)^CCU 94 New Reference Range and Interpretation effective 12/19/2001 TnI (ng/ml) INTERPRETATION Less Than 0.06 ng/mL NOT SUPPORTIVE OF DIAGNOSIS OF RI 0.06 - 0.50 ng/ml INDETERMINATE: SUGGEST SERIAL STUDIES IF CLINICALLY INDICATED. Greater than 0.5 ng/mL CONSISTENT WITH DIAGNOSIS OF RI . 95 ---- RUN DATE: 10/24/09 [facility] NMI LIVE PAGE 1 RUN TIME: 1621 Specimen Inquiry RUN USER: INTERFACE -- Name: TAMARA STARKS Status: REG REF Re10/20/09 Age/Sex: 53/F Unit#: [id number] Location: [facility] : [birth year] -- Specimen: [id number] SOUT Spec Date: 10/20/[address]: Sanjeev anton MD Spec Type: SURGICAL [...] areas of hemorrhage or necrosis are seen. Environmental Department Manager sections, three cassettes. DIAGNOSIS Abdominal mass, excision: Mature adipose tissue compatible with lipoma. Signed Electronically by: CLEVE BOWEN MD 10/24/09 8241 -- -- DEPARTMENT OF PATHOLOGY, [address] [place] [address] [facility] Permit #[id number] Cleve Bowen M.D. Director Randal Dumont M.D. Surface Logging Systems Logger Dir angela -- Procedures Date Code Description Status 03/04/2018 48126 Anoscopy Completed 01/23/2018 94137 Excision Tumor Soft Tissue Upper Arm/Elbow Completed Subcutaneous < 3 CM 01/23/2018 17043 Excision Tumor Back/Flank, Soft Tissue, Subcutaneous, Completed > 3 CM 07/17/2017 58936 ECHO Transthorasic Realtime 2D W Doppler & Color Flow Completed Hosp 07/17/2017 63147 Treadmill Interp/Report Only Completed 07/17/2017 87349 Stress Test Supervsn W/Out I/R Completed 07/17/2017 68391 EKG, Interpretation Only Completed 05/20/2017 50699 Excision Tumor Soft Tissue Upper Arm/Elbow Completed Subcutaneous < 3 CM 05/20/2017 43650 Excision Tumor Soft Tissue Abdominal Wall Subcutaneous Completed 3 CM Or > 05/15/2017 [id number] Mammogram Completed 03/01/2017 39885 Anoscopy Completed 11/09/2016 39577 Stress Test Completed 11/09/2016 86312 Myocardial Perfusion Imaging Tomographic (Spect) Completed Multiple Studies 11/05/2016 93261 Stress Test Completed 06/06/2016 12113 EKG Tracing & Interpretation Completed 05/14/2016 [id number] Mammogram Completed 02/17/2016 07770 Anoscopy Completed 10/31/2015 64646 Inject/Drain Joint/Bursa Major W/O US Completed 07/11/2015 73798 Inject/Drain Joint/Bursa Major W/O US Completed 05/13/2015 [id number] Mammogram Completed 09/07/2014 52473 Arthroplasty Interposition Intercarpal Or Completed Carpometacarpal JTS 09/07/2014 94398 Dequervains-Tendon Sheath Incision/Extensor Completed Sheath,Wrist 05/06/2014 [id number] Mammogram Completed 04/08/2014 [id number] Bone Mineral Density Test Completed 12/02/2013 [id number] Colonoscopy Completed 11/19/2013 71892 Inject/Drain Joint/Bursa Small W/O US Completed 04/24/2013 [id number] Mammogram Completed 10/16/2012 32616 Inject/Drain Joint/Bursa Small W/O US Completed 09/29/2012 17130 Rad Exam; Wrist, Comp, Min 3 Views Completed 05/12/2012 25695 Inject/Drain Joint/Bursa Major W/O US Completed 09/12/2011 53515 Rad Exam; Knee, Ap&L Completed 09/12/2011 03386 Xray Knee 3 Views Completed 05/23/2011 [id number] Bone Mineral Density Test Completed 09/15/2010 23555 Arthroscopy,Unlisted Procedure Completed 09/15/2010 07601 Arthroscopy,Shoulder Decompression Of Subacromial Completed Space W/Acromio 09/15/2010 44428 Arthroscopy Shoulder Debridement Limited Completed 09/05/2010 10538 EKG Tracing & Interpretation Completed 01/16/2010 65576 EKG Tracing & Interpretation Completed Encounters Type Date Location Provider Dx Diagnosis Office Visit 01/13[facility]2018 [facility] Sanjeev Rose, D17.1 Benign lipomatous 9:15a Of Kyle FORMAN, FACS neoplasm of skin, subcu of trunk D17.22 Benign lipomatous neoplasm of skin, subcu of left arm Office Visit 12/11/2017 8:00a [facility] Internal Izabela Duncan, M54.5 Low back pain Medicine - [place] ONLINE USER EXPERIENCE STRATEGIST Rd E66.9 Obesity, unspecified Z23 Encounter for immunization Office Visit 11/05/2017 4:00p [facility] Internal Berto Lee G06.1 Intraspinal Miriam Kahn M.D.,FACP abscess and [place] granuloma E03.9 Hypothyroidism, unspecified N10 Acute pyelonephritis Office Visit 09/09/2017 9:30a 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 Devin Lee R42 Dizziness and Miriam - Isaias Kahn M.D.,FACP giddiness Rd K58.2 Mixed irritable bowel syndrome Office Visit 05/13/2017 10:15a Surgical Sanjeev Rose, D17.22 Benign Associates Of Kyle FORMAN, ITZEL lipomatous neoplasm of skin, subcu of left arm D17.1 Benign lipomatous neoplasm of skin, subcu of trunk Office Visit 04/02/2017 8:30a [facility] Devin Lee L30.9 Dermatitis, Miriam Kahn M.D.,FACP unspecified [place] T88.7xxA Unsp adverse effect of drug or medicament, init encntr Z23 Encounter for immunization Office Visit 03/01/2017 Surgical Savage S. C21.0 Malignant 2:15p Associates Of MD Sam neoplasm of anus, [facility] unspecified Office Visit 09/07/2016 [facility] Internal Berto Lee Z00.01 Encounter for 10:00a Miriam Kahn M.D.,FACP general adult Rd medical exam w abnormal findings R07.9 Chest pain, unspecified Z12.31 Encntr screen mammogram for malignant neoplasm of breast E89.0 Postprocedural hypothyroidism I10 Essential (primary) hypertension Office Visit 07/20/2016 4:20p [facility] Internal Liberty Hickman01.90 Acute sinusitis, Medicine - JOCKEY VALET unspecified [place] R04.0 Epistaxis Office Visit 06/06/2016 10:00a [facility] Internal Medicine Trevor Waterman, R51 Headache - [place] Davidson R07.9 Chest pain, unspecified Office Visit 03/26/2016 9:45a Surgical Sanjeev Rose, D17.1 Benign lipomatous Associates Of [facility] ITZEL FORMAN neoplasm of skin, subcu of trunk Office Visit 10/11/2015 8:00a [facility] Internal Berto Lee K20.9 Esophagitis , Miriam Kahn M.D.,FACP unspecified [place] M17.12 Unilateral primary osteoarthritis, left knee Office Visit 08/01/2015 Orthopedic Yolande M17.12 Unilateral primary 11:45a Services Of WILLY Hsu osteoarthritis, left C.M.A. knee S83.412D Sprain of medial collateral ligament of left knee, subs Office Visit 07/11/2015 9:30a [facility] Mellisa Hurley, M25.562 Pain in left Of C.M.A. M.D. knee M25.462 Effusion, left knee M17.12 Unilateral primary osteoarthritis, left knee S83.412A Sprain of medial collateral ligament of left knee, init Office Visit 04/15/2015 3:40p [facility] Internal Liberty Hickman01.10 Acute frontal Medicine - JOCKEY VALET sinusitis, [place] unspecified S16.1xxA Strain of muscle, fascia and tendon at neck level, init R51 Headache Office Visit 04/01/2015 12:40p [facility] Internal Kandis Joseph, R10.13 Epigastric pain Miriam [place] Office Visit 12/31/2014 8:00a [facility] Internal Berto Lee Z00.00 Encntr for Medicine - general Jasmyne adult Tin Davidson,FACP medical exam w/o abnormal findings Z85.048 Prsnl hx of malig neoplm of rectum, rectosig junct, and anus J43.9 Emphysema, unspecified E03.9 Hypothyroidism, unspecified R35.0 Frequency of micturition Z23 Encounter for immunization Office Visit 08/30/2014 Orthopedic Giulia 715.14 Osteoarthrosis 8:10a Services Of Stuart Cedeno Localized Prim Hand C.M.A. [facility], 789.06 Pain Abdominal 9:08a Assoc,pc DO Epigastric Hospitalists 787.02 Nausea Alone 154.3 Malignant Neoplasm Anus Unspec V15.29 Personal History Of Surgery To Other Organs Office Visit 05/06/2014 1:00p [facility] Internal Donell Mcwilliams, 782.1 Rash & Other Medicine - JOCKEY VALET Nonspec Skin [place] Eruption Office Visit 02/18/2014 3:40p [facility] Internal Victoira 783.21 Loss Of Weight Sophie Lozano N.PAnn 244.0 Hypothyroidism Postsurgical 281.9 Anemia Deficiency Unspec 789.06 Pain Abdominal Epigastric V04.81 Need For Prophylactic Vaccination & Inoculation/Influenza Office Visit 11/19/2013 Orthopedic Giulia 715.14 Osteoarthrosis 4:00p Services Of Stuart Cedeno Localized Prim Hand C.M.A. Office Visit 10/16/2013 [facility] Internal Berto Lee V70.0 Examination General 1:00p Miriam Kahn M.D.,[facility] Medical Routine AT [place] 244.0 Hypothyroidism Postsurgical V73.89 Screening Examination Viral Diseases Other Spec 783.21 Loss Of Weight 789.06 Pain Abdominal Epigastric 716.94 Arthropathy Unspec Hand Office Visit 07/15/2013 2:00p [facility] Internal Berto Lee 719.44 Pain Joint Miriam Kahn M.D.,[facility] Hand [place] 719.46 Pain Joint Lower Leg 154.3 Malignant Neoplasm Anus Unspec Office Visit 10/16/2012 4:00p Orthopedic Giulia 716.14 Arthropathy Services Of Stuart Cedeno Traumatic Hand C.M.A. 716.94 Arthropathy Unspec Hand 719.44 Pain Joint Hand Office Visit 06/30/2012 1:15p Orthopedic Donte Plummer 716.96 Arthropathy Services Of Stuart Unspec Lower Leg C.M.A. Office Visit 05/12/2012 1:00p Orthopedic Jose Lunsford 836.0 Dislocation Knee Services Of Renzo, Tear Of Medial C.M.A. R.P.A.-C Cartilage Or Meniscus Curr 716.96 Arthropathy Unspec Lower Leg 727.04 Tenosynovitis Radial Styloid Office Visit 09/12/2011 1:30p Orthopedic Donte Plummer 716.96 Arthropathy Unspec Services Of Stuart Lower Leg C.M.AAnn 836.0 Dislocation Knee Tear Of Medial Cartilage Or Meniscus [facility] Office Visit 06/04/2011 10:40a Bench Lay Out Technician Internal [place] 401.1 Hypertension Miriam Stuart Garcia Benign [place] 493.00 Asthma Extrinsic Unspecified 530.11 Esophagitis Reflux 311 Depressive Disorder Not Elsewhere Spec 719.46 Pain Joint Lower Leg 327.23 Obstructive Sleep Apnea Adult & Pediatric Office Visit 01/30/2011 9:00a DO Not Use Bench Lay Out Technician [place] 401.1 Hypertension AT Izzy Garcia M.D. Benign 244.0 Hypothyroidism Postsurgical 733.00 Osteoporosis Unspec 719.46 Pain Joint Lower Leg 272.2 Hyperlipidemia Mixed 296.82 Depressive Disorder Atypical v04.81 Need For Prophylactic Vaccination & Inoculation/Influenza Office Visit 11/22/2010 DO Not Use Bench Lay Out Technician [place] 357.4 Polyneuropathy Other 4:00p AT Izzy Garcia M.D. Disease Class Elsewhere Office Visit 10/03/2010 DO Not Use Bench Lay Out Technician Christiano 535.00 Gastritis Acute W/O 4:00p AT Izzy Garcia M.D. Hemorrhage Office Visit 09/05/2010 DO Not Use Bench Lay Out Technician Victoria Carmona, V72.84 Examination 1:00p AT [facility] N.PAnn Preoperative Unspec 401.1 Hypertension Benign 493.00 Asthma Extrinsic Unspecified 244.0 Hypothyroidism Postsurgical Office Visit 08/29/2010 3:45p Orthopedic Marcus Monroe, 840.4 Sprains & Services Of C.MZainab Gillis. Strains Rotator Cuff (Capsule) 726.12 Tenosynovitis Bicipital Office Visit 08/21/2010 DO Not Use Bench Lay Out Technician Christiano 840.6 Sprains & Strains 2:40p AT Izzy Garcia M.D. Supraspinatus (Muscle)(Tendon) 789.01 Pain Abdominal Right Upper Quadrant Office Visit 07/17/2010 2:00p DO Not Use Bench Lay Out Technician Christiano Radha, V72.62 Laboratory Exam AT Izzy Davidson Ordered as Part Of Routine General Med Exam 401.1 Hypertension Benign 493.00 Asthma Extrinsic Unspecified 722.93 Disc Disorder Other & Unspec Lumbar Region 719.41 Pain Joint Shoulder Region Office Visit 06/21/2010 11:40a DO Not Use Bench Lay Out Technician [place] 722.93 Disc Disorder AT Izzy Garcia M.D. Other & Unspec Lumbar Region Office Visit 03/28/2010 4:00p DO Not Use Bench Lay Out Technician [place] 401.1 Hypertension AT Izzy Garcia M.D. Benign 244.0 Hypothyroidism Postsurgical 530.11 Esophagitis Reflux 493.00 Asthma Extrinsic Unspecified 296.82 Depressive Disorder Atypical 278.00 Obesity Unspec V04.81 Need For Prophylactic Vaccination & Inoculation/Influenza Office Visit 01/23/2010 8:20a DO Not Use Bench Lay Out Technician Christiano Pachikara, 535.40 Gastritis Other AT Izzy Davidson Spec W/O Hemorrhage 276.8 Hypopotassemia 722.93 Disc Disorder Other & Unspec Lumbar Region 244.0 Hypothyroidism Postsurgical Office Visit 01/16/2010 3:20p DO Not Use Bench Lay Out Technician Christiano 458.9 Hypotension Unspec AT Izzy Garcia M.D. Office Visit 12/01/2009 1:20p DO Not Use Bench Lay Out Technician Christiano 401.1 Hypertension AT Izzy Garcia M.D. Benign 244.0 Hypothyroidism Postsurgical 530.11 Esophagitis Reflux 296.82 Depressive Disorder Atypical Office Visit 09/29/2009 9:00a DO Not Use Bench Lay Out Technician Carmeloananda, 296.82 Depressive AT Izzy Vargas MD Disorder Atypical 244.0 Hypothyroidism Postsurgical 493.00 Asthma Extrinsic Unspecified 530.11 Esophagitis Reflux 553.8 Hernia Other Spec Sites Plan of Treatment 03/04/2018 - JAYA Tovar21.0 Malignant neoplasm of anus, unspecifiedFollow up:in 1 year.
[2018-03-07 14:09] VITALS: BP 119/65
--- NOTE | 2018-03-07 14:11 | UC ---
Skin Complaint HPI - HPI Summary HPI Summary: 62 yo female presents with left middle finger pain. She tells me that over the past 2-3 days the skin around her nail has been becoming red, swollen, and painful. She does admit to biting her nails intermittently. She has been soaking it in warm salt water with no relief. Denies fever, chills, or injury. - History of Current Complaint Chief Complaint: UCUpperExtremity Time Seen by Provider: 03/07/18 14:11 Stated Complaint: FINGER SWELLING Hx Obtained From: Patient Onset/Duration: Sudden Onset Onset Severity: Moderate Current Severity: Severe Pain Intensity: 10 Pain Scale Used: 0-10 Numeric - Allergy/Home Medications Allergies/Adverse Reactions: Allergies Allergy/AdvReac Type Severity Reaction Status Date / Time chocolate flavor Allergy GI Upset Verified 03/07/18 14:09 ketorolac [From Toradol] Allergy Rash Verified 03/07/18 14:09 oxycodone Allergy Tingling Verified 03/07/18 14:09 PMH/Surg Hx/FS Hx/Imm Hx Endocrine History: Hypothyroidism Cardiovascular History: Hypertension GI/ History: Gastroesophageal Reflux - Surgical History Surgical History: Yes Surgery Procedure, Year, and Place: lap cholecystectomy 2006 [facility] [place], - [place]. hysterectomy 1989 [facility] [place]-HEART CATHERIZATION 2000 [place]. L thyroidectomy[place] [place] -. TUBAL LIGATION 1977. left shoulder- bone spurs- [place] 2001. right wrist August 2014 [facility] [place]. tonsillectomy[place]. esophageal wrap per pt for reflux X 2 LAST 1999 [place], [facility] [place]. - Family History Known Family History: Positive: Cardiac Disease, Hypertension, Diabetes - Social History Occupation: Employed Full-time Lives: With Family Alcohol Use: None Substance Use Type: None Smoking Status (MU): Never Smoked Tobacco Have You Smoked in the Last Year: No - Immunization History Most Recent Influenza Vaccination: 2016 Most Recent Tetanus Shot: unknown Most Recent Pneumonia Vaccination: never Review of Systems All Other Systems Reviewed And Are Negative: Yes Constitutional: Positive: Negative Skin: Positive: Other - Paronychia left middle finger Respiratory: Positive: Negative Cardiovascular: Positive: Negative Neurovascular: Positive: Negative Neurological: Positive: Negative Psychological: Positive: Negative Physical Exam - Summary Physical Exam Summary: GENERAL: NAD. WDWN. No pain distress. SKIN: LEFT middle finger: Nail-skin fold on radial aspect with moderate erythema and edema. TTP. No active drainage or streaking. NECK: Supple. Nontender. No lymphadenopathy. CHEST: No accessory muscle use. Breathing comfortably and in no distress. CV: Pulses intact. Cap refill <2seconds NEURO: Alert. PSYCH: Age appropriate behavior. Triage Information Reviewed: Yes Vital Signs: Initial Vital Signs Temp 98 F 03/07/18 14:06 Pulse 81 03/07/18 14:06 Resp 17 03/07/18 14:06 BP 119/65 03/07/18 14:06 Pulse Ox 99 03/07/18 14:06 Vital Signs Reviewed: Yes Course/Dx - Course Course Of Treatment: Paronychia left middle finger. Rx for keflex and continue soaking - Diagnoses Provider Diagnosis: Paronychia of left middle finger Discharge - Sign-Out/Discharge Documenting (check all that apply): Patient Departure All imaging exams completed and their final reports reviewed: No Studies - Discharge Plan Condition: Stable Disposition: HOME Prescriptions: Cephalexin CAP* [Keflex CAP*] 500 mg PO BID #10 cap Patient Education Materials: Paronychia (ED) Referrals: Berto Kahn MD [Primary Care Provider] - Additional Instructions: If you develop a fever, shortness of breath, chest pain, new or worsening symptoms - please call your PCP or go to the ED. 1) Continue to soak your finger in warm salt water - Billing Disposition and Condition Condition: STABLE Disposition: Home - Attestation Statements Provider Attestation: I was available for consult. This patient was seen by the MIAH. The patient was not presented to, seen by, or examined by me. -Deonte
== END 2018-03-07 14:40 | disposition home or self-care (01) ==
LOC: UCEAST 13:56
DX: L03.012 Cellulitis of left finger (principal); I10 Essential (primary) hypertension; Z88.6 Allergy status to analgesic agent; Z88.5 Allergy status to narcotic agent; Z91.018 Allergy to other foods
CPT/HCPCS: 99212; G0463

== ENCOUNTER 2018-10-15 07:45 | Emergency (ER) | payer MEDICARE, OTHER ==
--- OUTSIDE RECORDS SUMMARY | 2018-10-15 07:51 | XMS REPORT | Continuity of Care Document ---
:1955 External Reference #:[id number] Author Name Jaspal Combs DO Address [address] [facility] [place] [address] Care Team Providers Name Role Phone Keri Magana M.D. 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 Primary Care Physician Unavailable Payers Date Identification Numbers Payment Provider Subscriber Policy Number: [id number] Medicare Tamara Toro PayID: [id number] [facility] [address] [place] [address] Policy Number: [id number] [facility] Tamara Toro PayID: [id number] [address] [place] [address] Problems Active Problems Provider Date Gastroesophageal reflux disease Raheel Lainez MD Onset: 05/13/2012 Malignant tumor of anal canal Raheel Lainez MD Onset: 04/21/2013 Constipation JANET SimonP-C Onset: 05/18/2014 Nausea JANET SimonP-C Onset: 05/18/2014 Epigastric pain JANET SimonP-C Onset: 05/18/2014 Gastroparesis syndrome JANET SimonP-C Onset: 05/18/2014 Malignant tumor of anus Berto Kahn MD Onset: 07/15/2013 Allergic asthma without status asthmaticus Alicia Mcdonald MD Onset: 2009 Atypical depressive disorder Christiano Garcia MD Onset: 01/23/2010 Peptic reflux disease Christiano Garcia MD Onset: 01/23/2010 Postoperative hypothyroidism Christiano Garcia MD Onset: 01/23/2010 Benign essential hypertension Christiano Garcia MD Onset: 01/23/2010 Panic disorder with agoraphobia Christiano Garcia MD Onset: 10/15/2010 Chronic obstructive lung disease Christiano Garcia MD Onset: 10/15/2010 Arthralgia of the lower leg Christiano Garcia MD Onset: 01/30/2011 Mixed hyperlipidemia Christiano Garcia MD Onset: 01/30/2011 Social History Type Date Description Comments Sex Unknown Tobacco Use Start: Unknown Patient has never smoked Smoking Status Reviewed: 09/01/18 Patient has never smoked Allergies, Adverse Reactions, Alerts Active Allergies Reaction Severity Comments Date Oxycodone see spots,come off cloud 9 Moderate 05/06/2014 Toradol Contact dermatitis Moderate 07/15/2013 Inactive Allergies NKDA 05/13/2012 Medications Active Medications SIG Qnty Indications Ordering Date Provider Colyte With Flavor by mouth as 4000ml Jaspla Combs, 09/29/2018 Packs directed 240gm Solution Rec Omeprazole 1 tablet by mouth 60caps R14.0 Jaspal Combs DO 11/08/2017 40mg Capsules twice a day before meals Vitamin D 2 by mouth every 90tabs Berto Kahn, 09/07/2016 (Cholecalciferol) day 1000Unit Tablets Celebrex 1 by mouth twice 60caps M17.12 Berto Kahn, 10/11/2015 200mg Capsules a day as needed Calcium High Potency + 1 tab po bid 60tabs Kaushal Harrison NP 12/17/2014 Vitamin D [id number] Tablets Levothyroxine Sodium 1 by mouth every 30tabs Berto Kahn, 10/21/2013 day 125mcg Tablets Diltiazem HCL ER Beads take 1 capsule by 90caps I10 Berto Kahn, 2013 mouth once daily 120mg Caps ER 24HR Aspirin Ec 1 by mouth every 90tabs Berto Kahn, 10/01/2013 325mg Tablets day MD PARKER Fiber Unknown 625mg Tablets Triamterene/Hydrochlor take 1 tablet by Unknown othiazide mouth daily 37.5-25mg Tablets Ra Aspirin Ec take 1 tablet by Unknown 325mg mouth daily Tablets Levothyroxine Sodium take 1 tablet by Unknown mouth daily 125mcg Tablets Diltiazem HCL ER Beads take 1 capsule by Unknown mouth once daily 120mg Caps ER 24HR Vitamin B12 1 by mouth every 90tabs Berto Kahn, 100mcg day Tablets Triamterene/Hydrochlor Unknown othiazide 37.5-25mg Capsules History Medications Miralax 1 Scoop Daily 510units Jaspal Combs, DO 11/11/2017 - 3350NF Powder 09/01/2018 Omeprazole 1 tab by mouth 90caps K21.0 Berto Kahn, 06/07/2017 - 20mg every day 11/08/[address] Fraire one by mouth 30caps Raheel Lainez 05/03/2015 - 145mcg every in the 11/08/2017 Capsules morning >30 min before 1st meal. Align 1 po qd 30caps Z85.048 Berto Kahn, 12/31/2014 - 4mg Capsules 05/03/2015 Ondansetron 1 tab sl every 20tabs Berto Kahn, 10/25/2014 - 4mg 8 hours as 05/03/2015 Tablets Dispers needed Miralax 17 gm every day 500units Berto Kahn, 04/06/2014 - 3350NF Powder mixed w/ 8 oz 05/03/2015 water/juice Diltiazem HCL ER take 1 capsule 30caps 401.1 Berto Kahn, 10/16/2013 - Coated Beads by mouth once 11/08/2017 120mg daily Caps ER 24HR Colace 1 by mouth 90caps Berto Kahn, 07/24/2013 - 100mg Capsules three times a 11/29/2015 day Sucralfate 1 tab by mouth 120tabs Raheel Lainez 04/21/2013 - 1gm bid 11/12/2013 Tablets Zantac 150 Maximum 1 po qday as 60tabs Raheel Lainez 05/13/2012 - Strength needed 11/12/2013 150mg Tablets Omeprazole 1 by mouth 30caps 530.11 Berto Kahn, 06/04/2011 - 40mg every day 11/08/2017 Capsules Fiber Laxative Unknown - 625mg 11/29/2015 Tablets Fibercon 625mg 1 by 30tabs Berto Kahn, - 625mg mouth every day 05/03/2015 Tablets Albuterol Inhaler Unknown - 05/03/2015 Calcium Plus Vitamin Unknown - D 05/03/2015 Wellbutrin XL qd Unknown - 150mg 05/03/2015 Tablets ER 24HR Diltiazem HCL ER Unknown - 05/03/2015 240mg Caps ER 24HR Pantoprazole Sodium 1 po qd 30tabs Unknown - 04/21/2013 40mg Tablets Venlafaxine HCL Unknown - 11/12/2013 Levoxyl Unknown - 125mcg 11/29/2015 Tablets Aspirin Unknown - 325mg 05/03/2015 Immunizations CPT Code Status Date Vaccine Lot # [id number] Given 04/02/2017 Influenza Virus Vaccine, Quadrivalent, Split, Preservative Free 73331 Given 03/18/2016 Influenza Virus Vaccine, Quadrivalent, Slit Virus, [place] Use [address]27 Given 12/31/2014 Influenza Virus Vaccine, Quadrivalent, Split, Preservative Free 65714 Given 12/31/2014 Pneumococcal Conjugate Vaccine 13 Valent For Intramuscular Use 31378 Given 02/18/2014 Influenza Virus Vaccine Split Virus Use For Individual 3Yr Older 88399 Given 05/28/2012 Pneumovax 86190 Given 05/28/2012 Tetanus, Diphtheria Toxoids/Acellular Pertussis Vaccine 7 Or > 79530 Given 01/30/2011 Influenza Virus [place], [place] [address] Given 03/28/2010 Influenza Virus Vaccine, Split Virus, Im Vital Signs Date Vital Result Comment 09/29/2018 9:39am Height 66 inches 5'6" Weight 200.00 lb BMI (Body Mass Index) 32.3 kg/m2 09/01/2018 11:31am Height 66 inches 5'6" Weight 202.00 lb BP Systolic 117 mmHg BP Diastolic 63 mmHg Heart Rate 85 /min BMI (Body Mass Index) 32.6 kg/m2 04/21/2018 1:44pm Height 66 inches 5'6" Weight 200.00 lb BMI (Body Mass Index) 32.3 kg/m2 11/08/2017 1:33pm Height 66 inches 5'6" Weight 202.00 lb BP Systolic 120 mmHg BP Diastolic 71 mmHg Heart Rate 90 /min BMI (Body Mass Index) 32.6 kg/m2 11/29/2015 9:14am Height 66 inches 5'6" Weight 186.00 lb BP Systolic 126 mmHg BP Diastolic 71 mmHg Heart Rate 73 /min BMI (Body Mass Index) 30.0 kg/m2 05/03/2015 11:20am Height 66 inches 5'6" Weight 193.00 lb BP Systolic 118 mmHg BP Diastolic 70 mmHg Heart Rate 72 /min BMI (Body Mass Index) 31.1 kg/m2 05/18/2014 2:13pm Height 67 inches 5'7" Weight 176.00 lb BP Systolic 122 mmHg BP Diastolic 78 mmHg Heart Rate 92 /min BMI (Body Mass Index) 27.6 kg/m2 12/25/2013 3:19pm Height 67 inches 5'7" Weight 174.00 lb BP Systolic 98 mmHg BP Diastolic 72 mmHg Heart Rate 72 /min BMI (Body Mass Index) 27.2 kg/m2 11/12/2013 4:09pm Height 67 inches 5'7" Weight 180.00 lb BP Systolic 118 mmHg BP Diastolic 70 mmHg Heart Rate 72 /min BMI (Body Mass Index) 28.2 kg/m2 04/21/2013 2:16pm Height 67 inches 5'7" Weight 205.00 lb BP Systolic 122 mmHg BP Diastolic 80 mmHg Heart Rate 78 /min BMI (Body Mass Index) 32.1 kg/m2 05/13/2012 1:58pm Height 67 inches 5'7" Weight 223.00 lb BP Systolic 152 mmHg BP Diastolic 92 mmHg Heart Rate 90 /min BMI (Body Mass Index) 34.9 kg/m2 Results Test Date Facility Test Result H/L Range Note Laboratory test 06/05/2018 [facility] SEE RESULT 1 finding Pathology BELOW Laboratory test 06/05/2018 [facility] [place] Clotest SEE RESULT 2 finding BELOW Ua Routine 09/09/2017 N2N/CCD Import Ua Appera cloudy Ua Bilirubin neg Ua Color yellow Ua Glucose normal Ua Ketones neg Ua Nitrite neg Ua Occult Blood 50 1 Ua PH 6 1 Ua Protein trace Ua Specific Comfrey 1.010 1 Ua Urobilinogen normal Ua WBC ++ Laboratory test 08/20/2017 N2N/CCD Import TSH (Thyroid 11.99 mcIU/mL High 0.34-5.60 finding Stim Horm) Basic Metabolic 08/13/2017 N2N/CCD Import Anion Gap 4 mmol/L 2-11 Panel BUN/Creatinine Ratio 21.3 1 High 8-20 Blood Urea Nitrogen 19 mg/dL 6-24 Calcium 8.9 mg/dL 8.6-10.3 Chloride 106 mmol/L 101-111 Co2 Carbon Dioxide 30 mmol/L 22-32 Creatinine 0.89 mg/dL 0.51-0.95 Egfr 83.5 1 >60 3 Egfr Non- 64.9 1 >60 Glucose 86 mg/dL 70-100 Potassium 4.3 mmol/L 3.5-5.0 Sodium 140 mmol/L 139-145 Lipid Profile (Trig/Chol/HDL) 08/13/2017 N2N/CCD Import Cholesterol 184 mg/ dL 4 HDL Cholesterol 55.7 mg/dL 5 LDL Cholesterol 110 mg/dL 6 Triglycerides 92 mg/dL 7 Laboratory test 01/19/2016 [facility] [place] Clotest SEE RESULT 8, 9 finding BELOW Laboratory test 10/31/2015 [facility] TSH Thyroid <pending> finding Stim Hormone(!) Xray 09/18/2015 [facility] [place]iology Chest PA And <pending> Lat 2 VWS Laboratory test 09/18/2015 N2N/CCD Import Albumin 3.9 g/dL 3.2-5.2 finding Albumin/Globulin Ratio 1.4 1-3 Alkaline Phosphatase 65 U/L 34-104 Alt 12 U/L 7-52 Anion Gap 7 mmol/L 2-11 Ast 15 U/L 13-39 BUN/Creatinine Ratio 24.7 High 8-20 Blood Urea Nitrogen 24 mg/dL 6-24 Calcium 9.2 mg/dL 8.6-10.3 Chloride 105 mmol/L 101-111 Co2 Carbon Dioxide 28 mmol/L 22-32 Creatinine 0.97 mg/dL High 0.51-0.95 Egfr 76.1 >60 Egfr Non- 59.2 >60 Globulin 2.8 g/dL 2-4 Glucose 93 mg/dL 70-100 Magnesium 2.1 mg/dL 1.9-2.7 10 Potassium 3.3 mmol/L Low 3.5-5.0 Sodium 140 mmol/L 133-145 11 Total Bilirubin 0.30 mg/dL 0.2-1.0 Total Protein 6.7 g/dL 6.4-8.9 Troponin-I (TnI) 0.00 ng/mL <0.03 CBC Auto Diff 09/18/2015 N2N/CCD Import Abs Basophils 0 10^3/uL 0-0.2 Abs Eosinophils 0.2 10^3/uL 0-0.6 Abs Lymphocytes 0.7 10^3/uL Low 1.0-4.8 Abs Monocytes 0.4 10^3/uL 0-0.8 Abs Neutrophils 3.4 10^3/uL 1.5-7.7 Abs Nucleated RBC 0.01 10^3/uL Basophil % 0.8 % 0-2 Eosinophil % 3.7 % 0-6 Granulocyte % 71.2 % 38-83 Hematocrit 35 % 35-47 Hemoglobin 11.7 g/dL Low 12.0-16.0 Lymphocyte % 15.2 % Low 25-47 Mean Corpuscular HGB Conc 33 g/dL 31-36 Mean Corpuscular Hemoglobin 28 pg 27-31 Mean Corpuscular Volume 84 fL 80-97 Mean Platelet Volume 9 um3 7.4-10.4 Monocyte % 9.1 % High 1-9 Nucleated Red Blood Cells % 0.1 Platelet Count 181 10^3/uL 150-450 Red Blood Count 4.17 10^6/uL 4.0-5.4 Red Cell Distribution Width 14 % 10.5-15 White Blood Count 4.8 10^3/uL 3.5-10.8 Xray 06/01/2015 [facility] [place] Chest PA And Lat 2 VWS <pending> Xray 06/01/2015 [facility] [place] Abd/Pel W/O <pending> Xray 06/01/2015 [facility] [place]iology US Abdomen Limited <pending> Urinalysis Profile 06/01/2015 N2N/CCD Import Urine Appearance Clear Urine Bacteria Absent Absent Urine Bilirubin Negative Negative Urine Blood 1+ Negative Urine Color Yellow Urine Glucose Negative Negative Urine Ketones 1+ Negative Urine Leukocytes 1+ Negative Urine Nitrite Positive Negative Urine Protein Negative Negative Urine Red Blood Cell 1+(3-5/hpf) Absent Urine Specific Comfrey 1.014 1.010-1.030 Urine Urobilinogen Negative Negative Urine White Blood Cell 3+(>20/hpf) Absent Urine pH 5.0 5-9 Laboratory test finding 06/01/2015 N2N/CCD Import Albumin 4.3 g/dL 3.2- 5.2 Albumin/Globulin Ratio 1.4 1-3 Alkaline Phosphatase 85 U/L 34-104 Alt 19 U/L 7-52 Anion Gap 7 mmol/L 2-11 Ast 23 U/L 13-39 BUN/Creatinine Ratio 17.4 8-20 Blood Urea Nitrogen 15 mg/dL 6-24 Calcium 9.5 mg/dL 8.6-10.3 Chloride 100 mmol/L Low 101-111 Co2 Carbon Dioxide 29 mmol/L 22-32 Creatinine 0.86 mg/dL 0.51-0.95 D Dimer Quantitative < 200 ng/mL Less Than 230 12 Egfr 87.5 >60 Egfr Non- 68.0 >60 Globulin 3.1 g/dL 2-4 Glucose 96 mg/dL 70-100 Lipase 12 U/L 11.0-82.0 Potassium 4.0 mmol/L 3.5-5.0 Sodium 136 mmol/L 133-145 13 Total Bilirubin 0.60 mg/dL 0.2-1.0 Total Protein 7.4 g/dL 6.4-8.9 Troponin-I (TnI) 0.00 ng/mL <0.03 14 CBC Auto Diff 06/01/2015 N2N/CCD Import Abs Basophils 0 10^3/uL 0-0.2 Abs Eosinophils 0 10^3/uL 0-0.6 Abs Lymphocytes 0.4 10^3/uL Low 1.0-4.8 Abs Monocytes 0.5 10^3/uL 0-0.8 Abs Neutrophils 4.5 10^3/uL 1.5-7.7 Abs Nucleated RBC 0 10^3/uL Basophil % 0.4 % 0-2 Eosinophil % 0.5 % 0-6 Granulocyte % 83.6 % High 38-83 Hematocrit 41 % 35-47 Hemoglobin 13.3 g/dL 12.0-16.0 Lymphocyte % 6.9 % Low 25-47 Mean Corpuscular HGB Conc 33 g/dL 31-36 Mean Corpuscular Hemoglobin 28 pg 27-31 Mean Corpuscular Volume 85 fL 80-97 Mean Platelet Volume 9 um3 7.4-10.4 Monocyte % 8.6 % 1-9 Nucleated Red Blood Cells % 0.1 Platelet Count 167 10^3/uL 150-450 Red Blood Count 4.80 10^6/uL 4.0-5.4 Red Cell Distribution Width 14 % 10.5-15 White Blood Count 5.4 10^3/uL 3.5-10.8 Urine Culture And 06/01/2015 N2N/[facility] Import Urine Culture See Result 15 Sensitivities Below CBC W/Auto 01/10/2015 [facility] White Blood <pending> Differential(!) Count Ser Auto CNT RBC Red Blood Count <pending> Hemoglobin Blood <pending> Hematocrit <pending> MCV (Corpuscular Volume) <pending> MCH (Corpuscular Hemoglobin) <pending> MCHC (Corpuscular Hemog Conc) <pending> RDW <pending> Platelet Count Blood Auto CNT <pending> MPV <pending> Lymph% <pending> [place]% <pending> Neutrophil % <pending> Absolute Lymphocytes <pending> Absolute Monocytes <pending> Absolute Neutrophils <pending> CMP(!) 01/10/2015 [facility] Sodium(!) <pending> Potassium(!) <pending> Chloride Serum/Plasma(!) <pending> Carbon Dioxide Ser/Plasm(!) <pending> BUN - Urea Nitrogen(!) <pending> Calcium Ser/Plasma Mass/Vol(!) <pending> Creatinine Serum Mass/Vol(!) <pending> Glucose Serum(!) <pending> Uric Acid Ser/Plas Mass/Vol(!) <pending> BUN/Creatinine Ratio(!) <pending> Albumin Serum/Plasma(!) <pending> Alkaline Phosphatase(!) <pending> Bilirubin Total Mass/Vol(!) <pending> Ast - Sgot <pending> Alt - SGPT <pending> Protein Total <pending> Laboratory test 01/10/2015 N2N/[facility] Import Alpha 1 119 mg/dL 100 - 190 16 finding Antitrypsin A1a Lipid Profile 01/10/2015 N2N/[facility] Import Cholesterol 182 mg/dL 17 (Trig/Chol/HDL) HDL Cholesterol 60.6 mg/dL LDL Cholesterol 104 mg/dL 18 Triglycerides 89 mg/dL Ua Routine 12/31/2014 N2N/[facility] Import Ua Appera clear Ua Bilirubin neg Ua Color yellow Ua Glucose norm Ua Ketones neg Ua Nitrite neg Ua Occult Blood neg Ua PH 5 Ua Protein neg Ua Specific Comfrey 1.010 Ua Urobilinogen norm Ua WBC neg CBC W/Auto 05/16/2014 [facility] White Blood <pending> Differential(!) Count Ser Auto CNT RBC Red Blood Count <pending> Hemoglobin Blood <pending> Hematocrit <pending> MCV (Corpuscular Volume) <pending> MCH (Corpuscular Hemoglobin) <pending> MCHC (Corpuscular Hemog Conc) <pending> RDW <pending> Platelet Count Blood Auto CNT <pending> MPV <pending> Lymph% <pending> [place]% <pending> Neutrophil % <pending> Absolute Lymphocytes <pending> Absolute Monocytes <pending> Absolute Neutrophils <pending> BMP W/O Egfr(!) 05/16/2014 [facility] Sodium(!) <pending> Potassium(!) <pending> Chloride Serum/Plasma(!) <pending> Carbon Dioxide Ser/Plasm(!) <pending> BUN - Urea Nitrogen(!) <pending> Calcium Ser/Plasma Mass/Vol(!) <pending> Creatinine Serum Mass/Vol(!) <pending> Glucose Serum(!) <pending> Urinalysis Complete W05/16/2014 [facility] Ua Appearance <pending> Micro(! Ua Bacteria <pending> Ua Bilirubin <pending> Ua Blood Qual <pending> Ua Casts <pending> Ua Casts Other <pending> Ua Color <pending> Ua Crystals Unidentified <pending> Ua Epithelial Cells QL <pending> Ua Glucose <pending> Ua Ketones <pending> Ua Leuko <pending> Ua Nitrite <pending> Ua PH Test <pending> Ua Protein <pending> Ua RBC <pending> Ua Source <pending> Ua Specific Comfrey <pending> Ua Urobilinogen <pending> Ua WBC <pending> Ua Yeast <pending> CBC W/Auto 05/15/2014 [facility] White Blood <pending> Differential(!) Count Ser Auto CNT RBC Red Blood Count <pending> Hemoglobin Blood <pending> Hematocrit <pending> MCV (Corpuscular Volume) <pending> MCH (Corpuscular Hemoglobin) <pending> MCHC (Corpuscular Hemog Conc) <pending> RDW <pending> Platelet Count Blood Auto CNT <pending> MPV <pending> Lymph% <pending> [place]% <pending> Neutrophil % <pending> Absolute Lymphocytes <pending> Absolute Monocytes <pending> Absolute Neutrophils <pending> CMP(!) 05/15/2014 [facility] Sodium(!) <pending> Potassium(!) <pending> Chloride Serum/Plasma(!) <pending> Carbon Dioxide Ser/Plasm(!) <pending> BUN - Urea Nitrogen(!) <pending> Calcium Ser/Plasma Mass/Vol(!) <pending> Creatinine Serum Mass/Vol(!) <pending> Glucose Serum(!) <pending> Uric Acid Ser/Plas Mass/Vol(!) <pending> BUN/Creatinine Ratio(!) <pending> Albumin Serum/Plasma(!) <pending> Alkaline Phosphatase(!) <pending> Bilirubin Total Mass/Vol(!) <pending> Ast - Sgot <pending> Alt - SGPT <pending> Protein Total <pending> Laboratory test 05/15/2014 [facility] Lipase Ser/Plas (!) <pending> finding Troponin I <pending> Xray 05/15/2014 [facility] [place] Cta Chest/Abd/Pel W <pending> Xray 05/15/2014 [facility] [place] [place] Chest Ap Portable <pending> Retic Count 02/26/2014 [facility] [place] Retic Count 1.7 % High 0.5-1.5 Corrected Retic Count 1.4 % N 0.5-1.5 Maturation Factor Retic 1.5 N Retic Index 0.90 N Mean Retic Volume 106.0 N Immature Retic Fraction 0.37 N RBC Retic Count 4.14 10^6/uL Low 4.6-6.2 Hematocrit for Retic CNT 36 % N 35-47 Pthi 02/26/2014 [facility] PTH Intact 3.9 pmol/L N 1.3-9.3 Calcium (PTH Intact) 9.1 mg/dL N 8.6-10.3 Iron & Iron Binding Capacity 02/26/2014 [facility] Iron 50 g/dL N 50-212 Unsaturated Iron Binding 245 g/dL N Total Iron Binding Capacity 295 g/dL N 250-450 % Iron Saturation 17 % N 15-55 CBC Auto Diff 02/26/2014 [facility] White Blood Count 3.6 10^3/uL Low 4.8-10.8 [...] Blood Cells % 0.1 N Laboratory test finding 02/26/2014 [facility] [place] Erythrocyte Sed Rate 40 mm/Hr High 0-30 Laboratory test finding 02/26/2014 [facility] [place] Ferritin 59.0 ng/mL N 11-307 Vitamin B12 > 1450 pg/mL High 180-914 19 Folate > 20.00 ng/mL N >3.99 TSH (Thyroid Stimulating Horm) 2.01 IU/mL N 0.34-5.60 Surgical Pathology 12/02/2013 [facility] [place] S RUN DATE: 12/03/ <SEE NOTE> HIV 1/2 AB 10/16/2013 [facility] [place] HIV 1 2 Antibody Nonreactive N Nonreactive 20 Evaluation Laboratory test 10/16/2013 [facility] [place] Amylase 51 U/L N 29-103 finding Lipase 76 U/L N 11.0-82.0 TSH (Thyroid Stimulating Horm) 0.30 IU/mL Low 0.34-5.60 Hepatitis C Antibody Nonreactive N Nonreactive Laboratory test finding 09/17/2013 [facility] [place] Ferritin 57.8 ng/mL N 11-307 Vitamin B12 1192 pg/mL High 180-914 21 Comp Metabolic Panel 09/17/2013 [facility] [place] Sodium 141 mmol/L N 133-145 Potassium 3.8 mmol/L N 3.7-5.6 Chloride 107 [...] 65.0 N >60 Egfr 83.6 N >60 22 Iron & Iron Binding Capacity 09/17/2013 [facility] [place] Iron 45 g/dL Low 50-212 Unsaturated Iron Binding 242 g/dL N Total Iron Binding Capacity 287 g/dL N 250-450 % Iron Saturation 16 % N 15-55 CBC Auto Diff 09/17/2013 [facility] White Blood Count 4.1 10^3/uL Low 4.8-10.8 Red Blood Count 4.24 10^6/uL N 4.0-5.4 [...] Nucleated Red Blood Cells % 0.1 N Xray 07/17/2013 [facility] Abd/Pel W <pending> Surgical Pathology 05/22/2013 [facility] [place] S RUN DATE: <SEE NOTE> Clotest 05/22/2013 [facility] [place] Clotest (SEE NOTE) Xray 02/23/2013 [facility] [place] Radiology Chest 1 VW <pending> Xray 02/03/2013 [facility] [place] Radiology Cta Chest <pending> Xray 02/03/2013 [facility] [place] Radiology Chest Ap <pending> Portable CMP(!) 02/02/2013 [facility] Sodium(!) <pending> Potassium(!) <pending> Chloride Serum/Plasma(!) <pending> Carbon Dioxide Ser/Plasm(!) <pending> BUN - Urea Nitrogen(!) <pending> Calcium Ser/Plasma Mass/Vol(!) <pending> Creatinine Serum Mass/Vol(!) <pending> Glucose Serum(!) <pending> Uric Acid Ser/Plas Mass/Vol(!) <pending> BUN/Creatinine Ratio(!) <pending> Albumin Serum/Plasma(!) <pending> Alkaline Phosphatase(!) <pending> Bilirubin Total Mass/Vol(!) <pending> Ast - Sgot <pending> Alt - SGPT <pending> Protein Total <pending> CBC W/Manual Diff(!) 02/02/2013 [facility] White Blood Count <pending > Ser Auto CNT RBC Red Blood Count <pending> Hemoglobin Blood <pending> Hematocrit <pending> MCV (Corpuscular Volume) <pending> MCH (Corpuscular Hemoglobin) <pending> MCHC (Corpuscular Hemog Conc) <pending> RDW <pending> Platelet Count Blood Auto CNT <pending> MPV <pending> Neutrophils <pending> Band Cells <pending> Lymphocytes <pending> Monocytes <pending> Eosinophils <pending> Basophils <pending> Other Cells <pending> RBC Morphology Blood <pending> Xray 01/26/2013 [facility] [place] Chest 1 VW <pending> Xray 01/19/2013 [facility] [place] For Sim-Pelvis <pending> Xray 01/16/2013 [facility] [place] Radiology MRI Pelvis W/Wo <pending> Xray 01/12/2013 [facility] [place] [place] Chest/Abd/Pel W <pending> Xray 02/12/2012 [facility] [place] Radiology Chest PA And Lat 2 VWS <pending> Xray 09/02/2011 [facility] [place] Radiology Abdomen/KUB 1 VW <pending> Xray 06/07/2011 [facility] [place] Radiology Upper GI Series <pending> 1 SEE RESULT BELOW Name: DARION LORDEOBAKARITAMARA : [address]: Jaspal Combs DO Acct: [id number] Unit: [id number] AGE: 62 Location: ENDO Re06/05/18 SEX: F Status: DEP REF SPEC: [id number] THIERRY: 06/05/18- SUBM DR: Jaspal Combs DO REQ: [id number] RECD: 06/05/18-1231 STATUS: BAUDILIO TUBBS DR: Berto Rose MD _ ORDERED: LEVEL 4/2 FINAL DIAGNOSIS 1. Duodenum, biopsy: -- Benign small intestinal mucosa with no significant pathologic abnormalities. -- No evidence of villous blunting or increased intraepithelial lymphocytes. 2. Esophagus, distal, biopsy: -- Benign squamous and columnar-type mucosa with chronic inflammation. -- Intestinal metaplasia is absent. -- Dysplasia is absent. CLINICAL HISTORY Epigastric pain POST-OPERATIVE DIAGNOSIS EGD: mild gastroesophageal junction variable; intact wrap; gastritis; normal ; biopsy GROSS DESCRIPTION 1. The specimen is received in formalin labeled, Duodenal Biopsies, and consists of two horton-pink irregular soft tissue fragments averaging 0.4 x 0.2 by up to 0.2 cm which are submitted entirely in one cassette. 2. The specimen is received in formalin labeled, Distal Esophagus Biopsies , and consists of a 0.5 x 0.3 x 0.1 cm aggregate of horton-white to pink irregular soft tissue fragments which is submitted entirely in one cassette. CONTINUED ON NEXT PAGE DEPARTMENT OF PATHOLOGY, [address] [place] [address] Cleve Bowen M.D. Director [facility] # [id number] RUN DATE: 06/06/18 [facility] LAB LIVE PAGE 2 Patient: DARION TOROTAMARA [id number] (Continued) GROSS DESCRIPTION (Continued) Signed by and Reported on: Yolande Sawant MD 06/06/18 1249 END OF REPORT DEPARTMENT OF PATHOLOGY, [address] [place] [address] Cleve Bowen M.D. Director [facility] # [id number] SEE RESULT BELOW Name: TAMARA STARKS : [address]: Jaspal Combs DO Acct: [id number] Unit: [id number] AGE: 62 Location: ENDO Re06/05/18 SEX: F Status: DEP REF SPEC: [id number] THIERRY: 06/05/18- [facility] DR: Jaspal Combs DO REQ: [id number] RECD: 06/05/18-1231 STATUS: BAUDILIO TUBBS DR: Berto Rose MD _ ORDERED: LEVEL 4/2 FINAL DIAGNOSIS 1. Duodenum, biopsy: -- Benign small intestinal mucosa with no significant pathologic abnormalities. -- No evidence of villous blunting or increased intraepithelial lymphocytes. 2. Esophagus, distal, biopsy: -- Benign squamous and columnar-type mucosa with chronic inflammation. -- Intestinal metaplasia is absent. -- Dysplasia is absent. CLINICAL HISTORY Epigastric pain POST-OPERATIVE DIAGNOSIS EGD: mild gastroesophageal junction variable; intact wrap; gastritis; normal ; biopsy GROSS DESCRIPTION 1. The specimen is received in formalin labeled, Duodenal Biopsies, and consists of two horton-pink irregular soft tissue fragments averaging 0.4 x 0.2 by up to 0.2 cm which are submitted entirely in one cassette. 2. The specimen is received in formalin labeled, Distal Esophagus Biopsies , and consists of a 0.5 x 0.3 x 0.1 cm aggregate of horton-white to pink irregular soft tissue fragments which is submitted entirely in one cassette. CONTINUED ON NEXT PAGE DEPARTMENT OF PATHOLOGY, [address] [place] [address] Cleve Bowen M.D. Director [facility] # [id number] RUN DATE: 06/06/18 [facility] LAB LIVE PAGE 2 Patient: DARION LOREDOTAMARA VILLEGAS [id number] (Continued) GROSS DESCRIPTION (Continued) Signed by and Reported on: Yolande Sawant MD 06/06/18 1249 END OF REPORT DEPARTMENT OF PATHOLOGY, [address] [place] [address] Cleve Bowen M.D. Director [facility] # [id number] 2 SEE RESULT BELOW Name: TAMARA STARKS : [address]: Jaspal Combs DO Acct: [id number] Unit: [id number] AGE: 62 Location: ENDO Re06/05/18 SEX: F Status: REG REF SPEC: [id number] THIERRY: 06/05/18 [facility] DR: Jaspal Combs DO REQ: [id number] RECD: 06/05/18 STATUS: ALEIDA TUBBS DR: Berto Armendariz MD _ SOURCE: GAS ANTRUM SPDES: ORDERED: Clotest Procedure Result Reported Site Clotest Final 06/06/18- 0750 ML Clotest Negative * ML - Main Lab . END OF REPORT DEPARTMENT OF PATHOLOGY, [address] [place] [address] Cleve Bowen M.D. Director [facility] # [id number] SEE RESULT BELOW Name: TAMARA STARKS : [address]: Jaspal Combs DO Acct: [id number] Unit: [id number] AGE: 62 Location: ENDO Re06/05/18 SEX: F Status: REG REF SPEC: [id number] THIERRY: 06/05/[address]: Jaspal Combs DO REQ: [id number] RECD: 06/05/18-1232 STATUS: ALEIDA TUBBS DR: Berto Armendariz MD _ SOURCE: GAS ANTRUM SPDESC: ORDERED: Clotest Procedure Result Reported Site Clotest Final 06/06/18- 0750 ML Clotest Negative * ML - Main Lab . END OF REPORT DEPARTMENT OF PATHOLOGY, [address] [place] [address] Cleve Bowen M.D. Director [facility] # [id number] 3 Because ethnic data is not always readily [...] 15-29 5 Kidney failure <15 (or dialysis) 4 Desirable: <200 Borderline High: 200-239 High: >239 5 Low: <40 Desirable: 40-60 High: >60 6 Desirable: <100 Near Optimal: 100-129 Borderline High: 130-159 High: 160-189 Very High: >189 7 Desirable: <150 Borderline High: 150-199 High: 200-499 Very High: >500 8 [id number] SEE RESULT BELOW Name: TAMARA STARKS : [address]: Raheel Lainez MD Acct: [id number] Unit: [id number] AGE: 60 Location: ENDOC Re01/19/16 SEX: F Status: REG REF SPEC: [id number] THIERRY: 01/19/16-1447 [facility] DR: Raheel Lainez MD REQ: [id number] RECD: 01/19/16 STATUS: ALEIDA TUBBS DR: Berto Armendariz MD _ SOURCE: GAS ANTRUM SPDESC: ORDERED: Clotest COMMENTS: [id number] Procedure Result Reported Site Clotest Final 01/20/16821 ML Clotest Negative * ML - MAIN LAB ([facility]) . END OF REPORT * ML=Testing performed at Main Lab DEPARTMENT OF PATHOLOGY, [address] [place] [address] Clvee Bowen M.D. Director [facility] # [id number] SEE RESULT BELOW Name: TAMARA STARKS : [address]: Raheel Lainez MD Acct: [id number] Unit: [id number] AGE: 60 Location: ENDOCEC Re01/19/16 SEX: F Status: REG REF SPEC: [id number] THIERRY: 01/19/16-7 [facility] DR: Raheel Lainez MD REQ: [id number] RECD: 01/19/16160 STATUS: ALEIDA TUBBS DR: Berto Armendariz MD _ SOURCE: GAS ANTRUM SPDESC: ORDERED: Clotest COMMENTS: [id number] Procedure Result Reported Site Clotest Final 01/20/16821 ML Clotest Negative * ML - MAIN LAB ([facility]) . END OF REPORT * ML=Testing performed at Main Lab DEPARTMENT OF PATHOLOGY, [address] [place] [address] Cleve Bowen M.D. Director [facility] # [id number] 10 Reference Range and Interpretation: TnI (ng/mL) Interpretation Less Than 0.03 ng/mL Not supportive of diagnosis of [place] 0.03 - 0.50 ng/mL Indeterminate: suggest serial studies if clinically indicated. Greater than 0.5 ng/mL Consistent with diagnosis of [place] 11 Because ethnic data is not always [...] 5 Kidney failure <15 (or dialysis) 12 Please note: The following may produce a false positive D Dimer test: - Rheumatoid factor greater than 60 IU/ml - Plasma hemoglobin greater than 0.05 gm/dl - Bilirubin greater than 50 mg/dl - Lipids greater than 1000 mg/dl - FDP greater than 20 ug/ml 13 Because ethnic data is not always [...] 5 Kidney failure <15 (or dialysis) 14 Reference Range and Interpretation: TnI (ng/mL) Interpretation Less Than 0.03 ng/mL Not supportive of diagnosis of [place] 0.03 - 0.50 ng/mL Indeterminate: suggest serial studies if clinically indicated. Greater than 0.5 ng/mL Consistent with diagnosis of [place] 15 SEE RESULT BELOW Name: TAMARA STARKS : [address]: Geeta Blake MD Acct: [id number] Unit: [id number] AGE: 59 Location: ED Re06/01/15 SEX: F Status: DEP ER SPEC: [id number] THIERRY: 06/01/15-[address]: Tran Castillo NP REQ: [id number] RECD: 06/01/15 STATUS: ALEIDA TUBBS DR: Rory Kahn MD _ SOURCE: URINE SPDESC: ORDERED: Urine Culture Procedure Result Reported Site Urine Culture Final 06/03/15- 817 ML Organism 1 ESCHERICHIA COLI [place] Count 75-100,000 (Many) CFU/ML 1. ESCHERICHIA COLI [...] antibiotic reporting. * ML - MAIN LAB ([facility]) . END OF REPORT * ML=Testing performed at Main Lab DEPARTMENT OF PATHOLOGY, [address] [place] [address] Cleve Bowen M.D. Director [facility] # [id number] 16 FASTING 17 Desirable <150 Borderline high 150-199 High 200-499 Very High >500 18 Desirable <200 Borderline high 200-239 High >239 19 Normal Range 180 to 914 Indeterminate Range 145 to 180 Deficient Range <145 20 It is recognized that currently available assays [...] 95% confidence interval of 99.78 to 99.96%. 21 Normal Range 180 to 914 Indeterminate Range 145 to 180 Deficient Range <145 22 Because ethnic data is not always readily [...] 15-29 5 Kidney failure <15 (or dialysis) Procedures Date Code Description Status 06/05/2018 42622 Moderate Sedation Services; Same Phys Intl 15 Mins; PT >=5 Completed Years 06/05/2018 62067 EGD+Biopsy Single Or Multiple Completed 01/19/2016 55989 EGD+Biopsy Single Or Multiple Completed 12/02/2013 37177 Colonscopy+Biopsy Completed 05/22/2013 65711 Flexible Sigmoidoscopy W/ Biopsy Completed 05/22/2013 50904 EGD+Biopsy Single Or Multiple Completed 03/16/2011 72294 EGD- Upper Endoscopy Completed 03/14/2011 68399 Esophageal Acid Reflux With Mucosal Attached PH Probe - Completed Taylor 01/10/2011 57900 Esophageal Motility Study Completed 03/09/2010 73248 EGD+Biopsy Single Or Multiple Completed Encounters Type Date Location Provider Dx Diagnosis Office Visit 04/21/2018 Gastroenterology Jaspal Combs, R10.13 Epigastric pain 1:45p [facility] R13.10 Dysphagia, unspecified R11.0 Nausea R14.0 Abdominal distension (gaseous) Office Visit 11/08/2017 Gastroenterology Jaspal Combs, R14.0 Abdominal 1:30p [facility] distension (gaseous) K59.00 Constipation, unspecified Office Visit 11/29/2015 Gastroenterology Raheel Flores R10.13 Epigastric pain 9:30a [facility] L[facility] MD Office Visit 05/03/2015 Gastroenterbishnu Flores K58.9 Irritable bowel 11:00a [facility] MD syndrome without diarrhea Office Visit 05/18/2014 Gastroenterology Carine Gottlieb 536.3 Gastroparesis 3:00p [facility] 789.06 Pain Abdominal Epigastric 787.02 Nausea Alone 564.09 Constipation Other Office Visit 12/25/2013 [facility]enter[facility] Flores 536.3 Gastroparesis 3:30p [facility] MD Office Visit 11/12/2013 Raimundo Flores 783.21 Loss Of Weight 4:00p [facility] Laine[facility] MD 789.00 Pain Abdominal Unspec Site Office Visit 04/21/2013 2:15p Raimundo Flores 787.02 Nausea Alone [facility] Lainez MD 154.2 Malignant Neoplasm Anal Canal 530.81 Esophageal Reflux Office Visit 05/13/2012 Raimundo Flores 530.81 Esophageal 2:00p [facility] MD Reflux Office Visit 03/27/2011 [facility]astroenter[facility] Flores 530.81 Esophageal 2:30p [facility] MD Reflux Office Visit 02/23/2011 [facility]astroenterology Heather 530.81 Esophageal 2:00p [facility] Office Visit 01/18/2011 Raimundo Flores 530.81 Esophageal 2:45p [facility] MD Reflux Office Visit 12/28/2010 [facility] Heather 530.81 Esophageal 8:45a [facility] Office Visit 10/31/2010 Raimundo Flores 530.81 Esophageal 2:30p [facility] MD Reflux Office Visit 03/28/2010 [facility] Flores 530.81 Esophageal 8:45a [facility] MD Reflux Plan of Treatment Future Appointment(s):11/20/2018 10:30 am - Jaspal Combs DO at [facility]09/01/2018 - Jaspal Combs [id number] Functional dyspepsia
[2018-10-15 07:54] VITALS: BP 123/69
--- NOTE | 2018-10-15 08:13 | UC ---
Throat Pain/Nasal Omar HPI - HPI Summary HPI Summary: 62-year-old female who has had head congestion and cold symptoms for the past 3 days. She's also had red, watery, itchy eyes with sneezing. She denies any history of allergies however she does have COPD. She is presently a nonsmoker. - History of Current Complaint Chief Complaint: UCRespiratory Stated Complaint: CONGESTED Time Seen by Provider: 10/15/18 08:05 Hx Obtained From: Patient ?: No Onset/Duration: Gradual Onset Severity: Mild Pain Intensity: 10 Cough: Nonproductive Associated Signs & Symptoms: Positive: Negative - Allergies/Home Medications Allergies/Adverse Reactions: Allergies Allergy/AdvReac Type Severity Reaction Status Date / Time chocolate flavor Allergy GI Upset Verified 10/15/18 07:54 ketorolac [From Toradol] Allergy Rash Verified 10/15/18 07:54 oxycodone Allergy Tingling Verified 10/15/18 07:54 Home Medications: Home Medications dilTIAZem HCl [Taztia Xt] 120 mg PO DAILY 10/15/18 [History Confirmed 10/15/18] PMH/Surg Hx/FS Hx/Imm Hx Previously Healthy: Yes Respiratory History: COPD, Asthma - Surgical History Surgical History: Yes Surgery Procedure, Year, and Place: lap cholecyst[place] 2006 [facility] [place]. hysterectomy 1989 [facility] [place]. L [place]roidectomy[place] [place] TUBAL LIGATION 1977. left shoulder- bone spurs- [place] 2001. right wrist August 2014 [facility] [place]. [place]. esophageal wrap per pt for reflux X 2 LAST 1999 [place], [facility] [place]. - Family History Known Family History: Positive: Cardiac Disease, Hypertension, Diabetes - Social History Alcohol Use: None Substance Use Type: None Smoking Status (MU): Never Smoked Tobacco Have You Smoked in the Last Year: No - Immunization History Most Recent Influenza Vaccination: 2016 Most Recent Tetanus Shot: unknown Most Recent Pneumonia Vaccination: never Review of Systems All Other Systems Reviewed And Are Negative: Yes Eyes: Positive: Drainage - Watery itchy eyes., Eye Redness ENT: Positive: Ear Ache, Nasal Discharge, Sinus Congestion Respiratory: Positive: Cough - Nonproductive cough. Is Patient Immunocompromised?: No Physical Exam Triage Information Reviewed: Yes Appearance: Well-Appearing, No Pain Distress, Well-Nourished Vital Signs: Initial Vital Signs Temp 99.0 F 10/15/18 07:50 Pulse 86 10/15/18 07:50 Resp 16 10/15/18 07:50 BP 123/69 10/15/18 07:50 Pulse Ox 100 10/15/18 07:50 Vital Signs Reviewed: Yes Eyes: Positive: Conjunctiva Clear, Discharge - Watery eyes, sclera injected ENT: Positive: Hearing grossly normal, Pharynx normal, Nasal congestion, Nasal drainage - Clear nasal coryza, TMs normal, Uvula midline Neck: Positive: Supple, Nontender, No Lymphadenopathy Respiratory: Positive: Lungs clear, Normal breath sounds, No respiratory distress, No accessory muscle use Cardiovascular: Positive: RRR, No Murmur, Pulses Normal, Brisk Capillary Refill Musculoskeletal: Positive: Strength Intact, ROM Intact Neurological: Positive: Alert, Muscle Tone Normal Psychological Exam: Normal Skin Exam: Normal Throat Pain/Nasal Course/Dx - Course Course Of Treatment: Patient is comfortable here. Although she states she does not have seasonal allergies I believe this is not only a viral upper respiratory illness but also allergy related. I'm going to try Flonase 2 sprays once a day for a week and then one spray once day for a week. She is to follow-up with her primary care provider if no improvement in 3 or 4 days. - Differential Dx/Diagnosis Provider Diagnosis: Allergic rhinitis, URI (upper respiratory infection) Discharge - Sign-Out/Discharge Documenting (check all that apply): Patient Departure All imaging exams completed and their final reports reviewed: No Studies - Discharge Plan Condition: Fair Disposition: HOME Prescriptions: Fluticasone NASAL SPRAY 50MCG* [Flonase NASAL SPRAY 50MCG*] 2 spray BOTH NARES DAILY 7 Days #1 btl Patient Education Materials: Upper Respiratory Infection (DC), Allergic Rhinitis (DC) Referrals: Keri Magana MD [Primary Care Provider] - Additional Instructions: Increase fluids, rest. Oaoo-rmk-tdhvyit cold medicines as directed. Follow-up with your primary care provider in 3 or 4 days if no improvement. - Billing Disposition and Condition Condition: FAIR Disposition: Home - Attestation Statements Provider Attestation: I was available for consult. This patient was seen by the MIAH. The patient was not presented to, seen by, or examined by me. Clifford Dubois MD
== END 2018-10-15 08:29 | disposition home or self-care (01) ==
LOC: UCEAST 07:45
DX: J30.9 Allergic rhinitis, unspecified (principal); J06.9 Acute upper respiratory infection, unspecified; Z88.5 Allergy status to narcotic agent
CPT/HCPCS: 99212; G0463

== ENCOUNTER → 2018-10-16 11:40 | Emergency (ER) | payer MEDICARE, OTHER ==
[~2018-10-16 11:40] MED LIST: Iohexol 350* (CONTRAST) 500 ML MDV IV ONE
--- NOTE | 2018-10-16 11:48 | ED ---
HPI Chest Pain - HPI Summary HPI Summary: The patient is a 62 y/o F arriving by ambulance to [facility] with a chief complaint of sudden onset chest pressure starting at 0745. She reports that she has been battling an URI for the last three days as members of her family have been recently diagnosed with bronchitis. She has had symptoms of productive cough, SOB with pain, nausea, and edema of the BLE. She denies any fever, chills, erythema of eyes, sore throat, abdominal pain, vomiting, dysuria, hematuria, myalgia, rash, or dizziness. In the ambulance, she was administered 4 ASA and 1 NTG, which somewhat relived her pain. Currently, her pain is rated 7/10 in severity. The pain is unchanged with movement. Hx of HTN, angina, HLD, COPD, PE (treated with blood thinners), asthma, thyroid disease, GERD, anxiety, depression. Surgical hx of cardiac cauterization 2x. FHx of cardiac disease, HTN , DM. Nonsmoker, no EtOH, no substance use. - History of Current Complaint Time Seen by Provider: 10/16/18 11:41 Hx Obtained From: Patient Onset/Duration: Started Hours Ago - 0745, Still Present Timing: Lasting Hours Initial Severity: Moderate Current Severity: Moderate Pain Intensity: 7 Pain Scale Used: 0-10 Numeric Chest Pain Location: Diffuse Chest Pain Radiates: No Character: Pressure/Squeezing Aggravating Factor(s): Nothing Alleviating Factor(s): Other: - 4 ASA and 1 NTG in ambulance Associated Signs and Symptoms: Positive: Chest Pain, Shortness of Breath - with pain, Nausea, Productive Cough, Edema - in BLE, URI, Other: - NEGATIVE: erythema of eyes, sore throat, abdominal pain, dysuria, hematuria, myalgia, rash. Negative: Headaches, Dizziness, Fever, Chills, Vomiting - Allergy/Home Medications Allergies/Adverse Reactions: Allergies Allergy/AdvReac Type Severity Reaction Status Date / Time chocolate flavor Allergy GI Upset Verified 10/15/18 07:54 ketorolac [From Toradol] Allergy Rash Verified 10/15/18 07:54 oxycodone Allergy Tingling Verified 10/15/18 07:54 PMH/Surg Hx/FS Hx/Imm Hx Endocrine/Hematology History: Reports: Hx Thyroid Disease Denies: Hx Diabetes, Hx Systemic Lupus Erythematosus Cardiovascular History: Reports: Hx Angina, Hx Hypercholesterolemia - HLD, Hx Hypertension, Hx Rheumatic Fever - A CHILD, Other Cardiovascular Problems/ Disorders - 2 caths Denies: Hx Congestive Heart Failure, Hx Coronary Artery Disease, Hx Myocardial Infarction, Hx Pacemaker/ICD, Hx Valvular Heart Disease Respiratory History: Reports: Hx Asthma - PRN INHALER, Hx Chronic Obstructive Pulmonary Disease (COPD), Hx Pulmonary Embolism - HX OF 1979 GI History: Reports: Hx Gastroesophageal Reflux Disease, Hx Hiatal Hernia, Other GI Disorders - ANAL CA Denies: Hx Ulcer History: Denies: Hx Dialysis, Hx Renal Disease Musculoskeletal History: Reports: Hx Arthritis - CHEST,SPINE AND HANDS, Hx Fibromyalgia, Hx Osteoporosis, Other Musculoskeletal History - osteoporosis, FIBROMYALGIA Denies: Hx Rheumatoid Arthritis Sensory History: Reports: Hx Contacts or Glasses - READING GLASSES Denies: Hx Hearing Aid, Other Sensory Impairments Opthamlomology History: Reports: Hx Contacts or Glasses - READING GLASSES Denies: Other Sensory Impairments Neurological History: Reports: Hx Migraine - 2 X PER MONTH- TREATS WITH REST, Other Neuro Impairments/Disorders - FIBROMYALGIA, CHRONIC FATIGUE SYNDROME, INSOMNIA Psychiatric History: Reports: Hx Anxiety, Hx Depression Denies: Hx Panic Disorder - Cancer History Cancer Type, Location and Year: anal cancer dx 2012 depression,arthritis,panic attacks osteporosis,sleep disorder Hx Chemotherapy: Yes - ANAL CANER 2012 Hx Radiation Therapy: Yes - Surgical History Surgical History: Yes Surgery Procedure, Year, and Place: lap cholecyst[place] 2006 [facility] [place], [place]. [place] [facility] [place]. [place] [place] TUBAL LIG[place] 1977. left shoulder- bone spurs- [place] 2001. right wrist August 2014 [facility] [place]. tonsillectomy-[facility]. esophageal wrap per pt for reflux X 2 LAST [place] [facility] [place] Hx Anesthesia Reactions: No Infectious Disease History: Denies: Hx Clostridium Difficile, Hx Hepatitis, Hx Human Immunodeficiency Virus (HIV), Hx of Known/Suspected MRSA, Hx Shingles, Hx Tuberculosis, Hx Known/ Suspected VRE, Hx Known/Suspected VRSA, History Other Infectious Disease - Family History Known Family History: Positive: Cardiac Disease, Hypertension, Diabetes - Social History Alcohol Use: None Hx Substance Use: No Substance Use Type: Reports: None Hx Tobacco Use: No Smoking Status (MU): Never Smoked Tobacco Have You Smoked in the Last Year: No Review of Systems Negative: Fever, Chills Negative: Erythema Negative: Sore Throat Positive: Chest Pain - pressure on chest Positive: Shortness Of Breath - with painful breathing, Cough - productive Positive: Nausea. Negative: Abdominal Pain, Vomiting Negative: dysuria, hematuria Positive: Edema - BLE. Negative: Myalgia Negative: Rash Neurological: Other - NEGATIVE: dizziness All Other Systems Reviewed And Are Negative: Yes Physical Exam - Summary Physical Exam Summary: Constitutional: Well-developed, Well-nourished, Alert. (-) Distressed Skin: Warm, Dry HENT: Normocephalic; Atraumatic Eyes: Conjunctiva normal Neck: Musculoskeletal ROM normal neck. (-) JVD, (-) Stridor, (-) Tracheal deviation Cardio: No reproducible chest pain. Rhythm regular, rate normal, Heart sounds normal; Intact distal pulses; The pedal pulses are 2+ and symmetric. Radial pulses are 2+ and symmetric. (-) Murmur Pulmonary/Chest wall: Effort normal. (-) Respiratory distress, (-) Wheezes, (-) Rales Abd: Soft, (-) tenderness, (-) Distension, (-) Guarding, (-) Rebound Musculoskeletal: (-) Edema Lymph: (-) Cervical adenopathy Neuro: Alert, Oriented x3 Psych: Mood and affect Normal Triage Information Reviewed: Yes Vital Signs Reviewed: Yes Diagnostics - Laboratory Result Diagrams: 10/16/18 11:59 10/16/18 11:59 Lab Statement: Any lab studies that have been ordered have been reviewed, and results considered in the medical decision making process. - Radiology CXR Radiology Interpretation Completed By: Radiologist Summary of Radiographic Findings: Impression: No active cardioplmonary disease. ED physician has reviewed this report. - CT Chest/Thorax CTA CT Interpretation Completed By: Radiologist Summary of CT Findings: Impression: No evidence for pulmonary embolism. ED physician has reviewed this report. - EKG 1138 Cardiac Rate: NL - 99 bpm EKG Rhythm: Sinus Rhythm Summary of EKG Findings: NSR at 98 bpm. No STEMI. Re-Evaluation - Re-Evaluation First Eval Re-Evaluation Time: 14:50 Change: Improved Comment: Patient is currently discomfort free. NTG in ambulance helped significantly. We discussed results and need for admission. Second Eval Re-Evaluation Time: 16:35 Comment: We discussed discharge home following Dr. Montalvo's consultation. Chest Pain Course/Dx - Course Course Of Treatment: Patient is a 62 y/o F arriving by ambulance with cc of sudden onset chest pressure that is unchanged with movement starting at 0745 that has persisted through arrival despite 4 ASA and 1 NTG in the ambulance. URI symptoms including productive cough, SOB, nausea, and edema of BLE. Hx of HTN, angina, HLD, COPD, PE, asthma. FHx of cardiac disease. Upon physical exam, the patient exhibits no reproducible chest pain. Blood work reveals RBCs of 4.96 , MCH of 26, absolute lymphs of 0.5, potassium of 3.3, glucose of 102, alkaline phosphatase of 121. First troponin is 0.00. Second troponin is 0.01. EKG at 1138 reveals NSR at 99 bpm. Chest x-ray shows no active cardiopulmonary disease. Chest/Thorax CTA with contrast impression is negative for PE. Patient has improved in the ED after NTG administration by EMS. While she is presenting with URI symptoms, there are no findings of pericarditis with CXR and CT clear. She does have risk factors for coronary artery disease, so there will be hospitalist consultation. Dr. Montalvo reports that she offered the patient inpatient admission, but she declined. She is diagnosed with chest pain, unspecified and URI with rx for Doxycycline and follow up with PCP in 2-3 days. She understands and agrees with this plan. - Diagnoses Provider Diagnoses: Chest pain, unspecified, URI (upper respiratory infection) - Provider Notifications Discussed Care Of Patient With: Reina Montalvo - hospitalist Time Discussed With Above Provider: 15:50 Instructed by Provider To: Other - I spoke with Dr. Montalvo concerning admission of the patient. At 1630, Dr. Montalvo reports that the patient is declining inpatient admission at this time. Discharge - Sign-Out/Discharge Documenting (check all that apply): Patient Departure - Patient will be discharged home. Patient Received Moderate/Deep Sedation with Procedure: No - Discharge Plan Condition: Stable Disposition: HOME Prescriptions: Albuterol HFA INHALER* [Ventolin HFA Inhaler*] 1 puff INH Q6H PRN #1 mdi PRN Reason: Cough DOXYcycline CAP(*) [DOXYcycline 100MG CAP(*)] 100 mg PO BID #10 cap Patient Education Materials: Chest Pain (DC), Upper Respiratory Infection (DC) Referrals: Keri Magana MD [Primary Care Provider] - 2 Days Additional Instructions: Please take medications as prescribed. Follow up with your primary care provider in 2-3 days. RETURN TO THE EMERGENCY DEPARTMENT FOR CHANGING OR WORSENING SYMPTOMS. - Billing Disposition and Condition Condition: STABLE Disposition: Home - Attestation Statements Document Initiated by Scribe: Yes Documenting Scribe: Bibi Zhang Provider For Whom Scribe is Documenting (Include Credential): Dr. Rivera Taylor MD Scribe Attestation: Bibi Marshall scribed for Dr. Rivera Taylor MD on 10/16/18 at 202. Status of Scribe Document: Ready
[2018-10-16 12:16] LABS: ABS Eosinophils 0.1 10^3/ul (0-0.6); ABS Lymphocytes 0.5 10^3/ul (1.0-4.8); ABS Monocytes 0.4 10^3/ul (0-0.8); ABS Neutrophils 3.1 10^3/ul (1.5-7.7); Eosinophil % 3.3 %; Hematocrit 40 % (35-47); Hemoglobin 12.8 g/dL (12.0-16.0); Lymphocyte % 11.2 %; Mean Corpuscular HGB Conc 32 g/dL (31-36); Mean Corpuscular Hemoglobin 26 pg (27-31); Mean Corpuscular Volume 80 fL (80-97); Mean Platelet Volume 8.7 fL (7.4-10.4); Nucleated Red Blood Cells % 0.1; Platelet Count 195 10^3/uL (150-450); Red Blood Count 4.96 10^6 /uL (3.70-4.87); Red Cell Distribution Width 15 % (10-15); White Blood Count 4.1 10^3/uL (3.5-10.8)
[2018-10-16 12:21] LABS: INR 1.02 (0.82-1.09)
[2018-10-16 12:26] LABS: Albumin 4.1 g/dL (3.2-5.2); Calcium 9.4 mg/dL (8.6-10.3); Potassium 3.3 mmol/L (3.5-5.0); Total Bilirubin 0.3 mg/dL (0.2-1.0)
[2018-10-16 12:32] LABS: Albumin/Globulin Ratio 1.3 (1-3); BUN/Creatinine Ratio 17.4 (8-20); EGFR African American 75.3 (>60); EGFR Non-African American 62.3 (>60); Globulin 3.1 g/dL (2-4); Total Protein 7.2 g/dL (6.4-8.9)
[2018-10-16 16:33] VITALS: BP 130/70
--- NOTE | 2018-10-16 17:42 | CONS ---
CC: Dr. Magana; Dr. Taylor * CONSULTATION REPORT: DATE OF CONSULT: 10/16/18 PRIMARY CARE PROVIDER: Dr. Magana. CHIEF COMPLAINT: Chest pain with coughing. HISTORY OF PRESENT ILLNESS: Mrs. Espinosa is a 62-year-old female with history of hypertension, COPD, asthma, and dyslipidemia who was diagnosed with upper respiratory infection yesterday when she started coughing. Today, she presents complaining of chest pain when coughing. She stated that it feels like a pulled muscle. She had a CT angiogram of the chest obtained in the ED negative for PE. Her troponin was 0.[address] Taylor requested a consultation for possibility of overnight observation for cardiac stress test. The patient herself complains of chest pain only with coughing. When she takes a deep breath, it does not hurt. She has not had any exertional chest pain. Currently , she has no chest pain at all. She was offered to be placed on overnight observation with a stress test in the morning, but she feels that that she has bronchitis and cold and she would not like to walk on the treadmill. She would prefer to go home and follow up with her primary care provider with outpatient stress test when she feels better. PAST MEDICAL HISTORY: 1. 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 2. History of COPD and asthma, not oxygen dependent. 3. History of dyslipidemia. 4. Hypothyroidism, postsurgical after goiter resection. 5. History of hypertension. MEDICATIONS AT HOME: 1. Cartia XT 120 mg daily. 2. Dyazide 37.5/25 one capsule daily. 3. Flonase nasal spray 2 sprays to both nostrils daily. 4. Vitamin B12 at 1000 mcg daily. 5. Celebrex 200 mg b.i.d. p.r.n. 6. Omeprazole 40 mg daily. 7. Levothyroxine 125 mcg daily. 8. Aspirin 325 mg daily. ALLERGIES: Chocolate, KETOROLAC, OXYCODONE. FAMILY HISTORY: Reviewed and noncontributory. SOCIAL HISTORY: The patient denies any alcohol, tobacco, or drug use. She is and lives with her son. As a surrogate, she mentioned her daughter, Nano Hoffman. REVIEW OF SYSTEMS: Please see history of present illness. In addition to the above mentioned, the patient stated that she has occasional leg edema; usually it is left more than right and that has been going on for the past several days. All the remaining 12 systems were reviewed with the patient and apart from the ones mentioned above and the ones in the history of present illness were, otherwise, negative. PHYSICAL EXAM: Blood pressure of 115/77, heart rate of 85 and regular, respiratory rate 18, oxygen saturation 95% on room air, temperature of 99.2. General: The patient is a pleasant 62-year-old female, who is in no acute distress. Alert, awake, and oriented x3. HEENT: Head: Atraumatic, normocephalic. Eyes: Pupils are equal and reactive to light and accommodation. Oropharynx is clear. Mucosa moist. Neck: Supple. No JVD. No bruits bilaterally. Cardiovascular: Regular rate and rhythm. No murmur. Respiratory: Coarse breath sounds at bilateral upper lung cooper; otherwise, clear. Abdomen: Soft, nontender. Bowel sounds are present in all 4 quadrants. Extremities: There is no edema. Pulses are +2 bilaterally. No clubbing or cyanosis. On neuro evaluation, speech is clear. Cranial nerves II through XII are grossly intact. Motor strength is 5/5 bilaterally. DIAGNOSTIC STUDIES/LAB DATA: Laboratory data included sodium of 138, potassium 3.3, chloride 103, carbon dioxide 27, BUN 16, creatinine 0.92. Liver function tests were unremarkable, apart from alkaline phosphatase slight elevation of 128. Troponin of 0 and second troponin of 0.01. White blood cell count of 4.1, hemoglobin of 12.8, hematocrit of 40, and platelets of 195. CT angiogram of the chest, impression: "No evidence for pulmonary embolism." The patient's initial EKG showed sinus tachycardia with a heart rate of 99 beats per minute with nonspecific ST changes in leads V4 to V6. Repeat EKG when the patient's heart rate slowed down shows still mild nonspecific ST depressions in leads V4, V6, but otherwise normal sinus rhythm. Comparing with prior EKGs, those changes are similar to the one EKG from July 2017. ASSESSMENT AND PLAN: The patient's chest pain is clearly related to cough. She does not have chest pain when she does not cough. I suspect this is related to bronchitis and with her asthma, it is likely that she would benefit from antibiotic like azithromycin. I will leave it up to the ER provider's discretion at discharge. In regards to cardiac evaluation, so far, the patient's troponins are negative and EKG is unremarkable and unchanged from prior. She does have some nonspecific lateral lead changes, but it appears that that had been chronic. At this point, the patient was offered to have overnight observation with a stress test in the morning, but she wishes to go home, get over her illness, and then schedule a followup appointment with her primary care provider with an outpatient stress test, which seems reasonable. The case is going to be discussed with Dr. Taylor. The patient wishes to be discharged from the ED. Thank you very much for allowing our service to see your patient in consultation. TIME SPENT: Approximately 55 minutes were spent on consultation of this patient , more than half that time was spent [id number] with the patient during the interview and physical exam. [id number]/[facility] #: [id number] ROHINI
== END | disposition home or self-care (01) ==
LOC: ED 11:40
DX: R07.9 Chest pain, unspecified (principal); J06.9 Acute upper respiratory infection, unspecified; I10 Essential (primary) hypertension; I20.9 Angina pectoris, unspecified; E78.5 Hyperlipidemia, unspecified; J44.9 Chronic obstructive pulmonary disease, unspecified; E07.9 Disorder of thyroid, unspecified; K21.9 Gastro-esophageal reflux disease without esophagitis; F41.9 Anxiety disorder, unspecified; F32.9 Major depressive disorder, single episode, unspecified; Z88.5 Allergy status to narcotic agent; Z79.82 Long term (current) use of aspirin; Z79.899 Other long term (current) drug therapy
CPT/HCPCS: 36415; 71045; 71275; 80053; 84484; 85025; 85610; 93005; 99283; Q9967

== ENCOUNTER 2018-12-16 10:53 | Day surgery (SDC) | payer MEDICARE, OTHER ==
[~2018-12-16 10:53] MED LIST changes: +Buffered Lidocaine 1% SYRIN* 1 ML/SYRINGE INTRADERM ONE; +Bupivacaine 0.5% SDV PF* 30ML VIAL ONE; +Dexamethasone IV* 4 MG/ML 1 ML (4 MG) IV SLOW PU ONE; -Iohexol 350* (CONTRAST) 500 ML MDV IV ONE; +Lactated Ringers 1000 ML Bag* 1,000 ML IV SCH; +Lidocaine 1% INJ* 10 MG/ML 30 ML SDV ONE
[2018-12-16] MEDS ORDERED: ceFAZolin 2 GM PREMIX in ORs 2 GM/50 ML BAG ONE (11:04)
[2018-12-16] MEDS ORDERED: Dexamethasone IV* 4 MG/ML 1 ML (4 MG) ONE (11:24)
[2018-12-16] MEDS ORDERED: Ondansetron INJ* 2 MG/ML VIAL IV PRN (12:01)
[2018-12-16] MEDS ORDERED: DiMENhydriNATE IV* 50 MG/ML VIAL IV PUSH PRN (12:01)
[2018-12-16] MEDS ORDERED: Naloxone* 0.4 MG/ML 1 ML VIAL IV PRN (12:01)
[2018-12-16] MEDS ORDERED: fentaNYL* 50 MCG/ML 2 ML VIAL (100 MCG VIAL) IV PRN (12:01)
[2018-12-16] MEDS ORDERED: Ondansetron INJ* 2 MG/ML VIAL ONE (12:16)
[2018-12-16] MEDS ORDERED: Propofol* 10 MG/ML 20 ML BTL ONE (12:16)
[2018-12-16] MEDS ORDERED: Midazolam* 1 MG/ML 5 ML VIAL (5 MG) ONE (12:17)
[2018-12-16] MEDS ORDERED: fentaNYL* 50 MCG/ML 2 ML VIAL (100 MCG VIAL) ONE (12:17)
[2018-12-16] MEDS ORDERED: Lidocaine 2% PF * 5 ML VIAL ONE (14:39)
[2018-12-16 15:41] VITALS: BP 123/73
--- NOTE | 2018-12-16 22:34 | OP ---
DATE OF OPERATION: 12/16/18 - [facility] DATE OF : 59 SURGEON: Claudio Mack DPM [employer]: None. ANESTHESIA: MAC with local. PRE-OP DIAGNOSIS: Displaced fracture of first metatarsal osteotomy site on the right foot. POST-OP DIAGNOSES: 1. Displaced fracture of first metatarsal osteotomy site on the right foot. 2. Contracted extensor hallucis longus tendon. OPERATIVE PROCEDURE: 1. Open reduction with internal fixation of first metatarsal on the right foot. 2. Extensor hallucis longus tendon lengthening procedure, right foot. PATHOLOGY: Degenerative bone and resected bone callus from fracture site. HEMOSTASIS: Pneumatic ankle tourniquet. ESTIMATED BLOOD LOSS: Less than 30 cc. MATERIALS: One 3.0 mm cannulated [place] screw, one 5-hole mini frag plate, and three 2.7 mm cortical screws. INDICATIONS: The patient with prior bunionectomy procedure with first metatarsal osteotomy. The patient was weight-bearing and displaced the osteotomy site creating a fracture and displacement in the manner that would not allow for optimal healing and the hallux is in extended position. The patient needs surgery to openly reduce the fracture, restore correction, and improve the function. DESCRIPTION OF PROCEDURE: The patient was brought to the operating room, placed on the operating table in supine position. The anesthesia department administered IV sedation and a peripheral nerve block was performed about the right foot with a 1:1 mixture of 1% lidocaine plain and 0.5% Marcaine plain. Right foot was then prepped and draped in the usual fashion. Right foot was then exsanguinated and pneumatic ankle tourniquet was inflated to 250 mmHg about a well-padded right ankle. Attention was directed to the dorsomedial aspect of the right great toe joint where a linear incision was made using the previous incision and making it slightly longer as needed. The incision was deepened through the subcutaneous tissues and there was noted to be scar and fibrous tissue and the soft tissue planes were restored as dissection was carried down to the joint capsule and periosteum. Care was taken to retract neurovascular structures and to cauterize superficial bleeders as needed. A linear periosteal and capsular incision was made offering exposure of the first metatarsal joint and great toe joint. There was an abundance of fibrous and scar tissue as expected. The periosteal and capsular structures were reflected to allow for adequate exposure of the first metatarsal. The fracture site was difficult to assess with an abundance of bone callus formation. This was debrided and resected as needed and the 2 screws medially were identified, both found to be not intact and loose and were then removed. The bone callus was resected and remodeled as well as the fracture site. The area was flushed. It was found that the distal fragment had telescoped intramedullary canal of the more proximal portion of the first metatarsal. Again, this was distracted and resected and a sagittal saw was used to resect small portion of the bone down to bleeding bone as well. With the correction restored and fracture reduced, a bone clamp was used for temporary fixation and using standard technique, a 3.0 cannulated Tre screw was placed for compression across the fracture site from distal medial to more proximal lateral. Again, prior to fixation, the C- arm was used to assess correction and positioning. Based on the loss of adequate cortical bone into the fracture site, a plate was needed for stability. It was placed dorsally and it was a 5-hole mini frag plate. It was bent and contoured as needed and 2 proximal 2.7 mm cortical screws were placed and only 1 could be placed distally as any additional would potentially interfere with the sesamoid apparatus. Again, the positioning and fixation was assessed with the C-arm. The surgical site was flushed with copious amounts of normal sterile saline. The extensor hallucis longus tendon was found to be contracted and it should be noted it needed to be lengthened prior to being able to adequately reduce the fracture and restore the correction of the first metatarsal. A linear incision was made into the extensor sheath and the tendon was identified and a Z extensor tendon lengthening was performed and then 4-0 Vicryl was used to secure. The lengthening was performed to new desired tension to allow for rectus position of the great toe joint. The surgical site was flushed with copious amounts of normal sterile saline and the tendon sheath was reapproximated and repaired with 4-0 Vicryl. For the closure of the periosteum and capsular tissue, 2-0 Vicryl was used; subcutaneous tissues were reapproximated with 4-0 Vicryl; and skin was closed with 4-0 and 5-0 nylon. Prior to closure, all screws were checked and found to be 2 fingers tight. The osteotomy was inspected and found to be very stable with no motion or significant gapping. The incision was dressed with Xeroform gauze, 4x4 gauze, Jason, and light Coban wrap. The pneumatic ankle tourniquet was deflated about the right ankle and a prompt hyperemic response was noted about all 5 digits of the patient's right foot. Having appeared to tolerate the procedures and anesthesia well, the patient was transported via cart from the operating room to Recovery in satisfactory condition with cap refill less than 3 seconds to all digits of the right foot. [id number]/[facility] #: [id number] [facility]
== END 2018-12-16 15:39 | disposition home or self-care (01) ==
LOC: OREAST 10:53
PROVIDERS: ATTEND Podiatrist Foot Surgery
DX: S92.311A Displaced fracture of first metatarsal bone, right foot, initial encounter for closed fracture (principal); M62.471 Contracture of muscle, right ankle and foot; X58.XXXA Exposure to other specified factors, initial encounter; Y92.9 Unspecified place or not applicable; I10 Essential (primary) hypertension; J44.9 Chronic obstructive pulmonary disease, unspecified; Z86.711 Personal history of pulmonary embolism; K21.9 Gastro-esophageal reflux disease without esophagitis; E03.9 Hypothyroidism, unspecified; Z85.048 Personal history of other malignant neoplasm of rectum, rectosigmoid junction, and anus; M19.90 Unspecified osteoarthritis, unspecified site; R53.82 Chronic fatigue, unspecified
CPT/HCPCS: 76000; 88300; 88304; 88311; C1713; C1776; J0690; J1100; J2250; J2405; J2704; J3010; J3490

== ENCOUNTER 2019-03-17 15:20 | Emergency (ER) | payer MEDICARE, MEDICAID ==
--- OUTSIDE RECORDS SUMMARY | 2019-03-17 15:28 | XMS REPORT | Continuity of Care Document ---
:1955 External Reference #:[id number] Author Name Savage Vargas MD (transmitted by agent of provider Cierra Dhaliwal) Address [address] [place] [address] Care Team Providers Name Role Phone Rafi Armendariz MD - Hematology Care Team Information Bologna Maker Keri Magana MD - Internal Medicine Care Team Information Bologna Maker Problems Active Problems Provider Date Malignant tumor of anus Berto Kahn M.D.,FACP Onset: 07/15/2013 Benign essential hypertension Christiano Garcia M.D. Onset: 01/23/2010 Postoperative hypothyroidism Christiano Garcia M.D. Onset: 01/23/2010 Peptic reflux disease Christiano Garcia M.D. Onset: 01/23/2010 Atypical depressive disorder Christiano Garcia M.D. Onset: 01/23/2010 Allergic asthma without status Alicia Mcdonald MD Onset: 01/23/2010 asthmaticus Chronic obstructive lung disease Christiano Garcia M.D. Onset: 10/15/2010 Note: 2nd hand smoke Panic disorder with agoraphobia Christiano Garcia M.D. Onset: 10/15/2010 Myalgia & Myositis Unspecified Christiano Garcia M.D. Onset: 10/15/2010 Mixed hyperlipidemia Christiano Garcia M.D. Onset: 01/30/2011 Arthralgia of the lower leg Christiano Garcia M.D. Onset: 01/30/2011 Small bowel bacterial overgrowth Berto Kahn M.D.,FACP Onset: 2017 syndrome Social History Type Date Description Comments Sex Unknown Tobacco Use Start: Unknown Never Smoked Cigarettes ETOH Use 09/07/2016 Denies alcohol use Recreational Drug Use Denies Drug Use Tobacco Use Start: Unknown Patient has never smoked Smoking Status Reviewed: 03/10/19 Patient has never smoked Exercise Type/Frequency Does not exercise Allergies, Adverse Reactions, Alerts Active Allergies Reaction Severity Comments Date Toradol Contact dermatitis Moderate 07/15/2013 Oxycodone see spots,come off cloud 9 Moderate 05/06/2014 Chocolate 02/17/2016 Inactive Allergies NKDA 12/01/2009 Medications Active Medications SIG Qnty Indications Ordering Date Provider Vitamin D 2 by mouth every 60caps Keri Magana MD 01/15/2019 (Cholecalciferol) day 1000Unit Capsules Shingrix inject per 2units Z23 Keri Magana MD 10/21/2018 50mcg/0.5ML protocol Suspension Rec Ergocalciferol one capsule 8caps Keri Magana MD 10/09/2018 35758Ecsy every week for 8 Capsules weeks Celecoxib Take 1 Capsule 180caps M17.12 Keri Magana MD 08/06/2018 200mg Capsules By Mouth Twice Daily as Needed Nitroglycerin place one tablet 50tabs Berto Lee 05/15/2018 0.4mg under the tongue Stuart Kahn,FACP Tablets Sub every 5 minutes for up to 3 doses as needed for chest pain Ondansetron HCL 1 every 6 hours 20tabs Berto Lee 02/26/2018 4mg as needed Sutart Kahn,FACP Tablets Fibercon 1 tabs twice a 120tabs Keri Magana MD 11/27/2017 625mg Tablets day or as directed as needed Omeprazole 1 tab by mouth 90caps K21.0 Keri Magana MD 06/07/[address]mg [address]apsules every day DR [place] apply twice a 80gm Keri Magana MD 04/02/2017 Acetonide day as needed 0.1% Cream Levothyroxine Sodium Take 1 Tablet By 90tabs Keri Magana MD 10/21/2013 Mouth Every Day 125mcg Tablets Diltiazem HCL ER Beads take 1 capsule 90caps I10 Keri Magana MD 2013 by mouth once 120mg Caps ER 24HR daily Aspirin Ec take 1 tablet by 90tabs Keri Magana MD 10/01/2013 325mg Tablets mouth daily. DR Lu/Hydrochlor 1 tab by mouth 90tabs I10 Keri Magana MD 2009 othiazide everyday 37.5-25mg Tablets Vitamin B12 2 tabs by mouth 180tabs Keri Magana MD 100mcg every day Tablets History Medications Vitamin D 2 tablets daily 60caps Keri Magana MD 02/02/2019 - (Cholecalciferol) 02/02/2019 25mcg (1000 Ut) Capsules Medications Administered in Office Medication SIG Qnty Indications Ordering Provider Date [facility] pharmacy Unknown 01/12/2019 administered Injection Technetium TC 99M Milad Mandujano M.D., 11/09/2016 Tetrofosmin, Per Unit Dose FACC, FASNC Up To 40 Millicuries Injection Depomedrol 40MG Mellisa Hurley M.D. 10/31/2015 Injection Depomedrol 40MG Mellisa Hurley M.D. 07/11/2015 Injection Depomedrol 80MG Giulia Cedeno M.D. 11/19/2013 Injection Depomedrol 80MG Giulia Cedeno M.D. 10/16/2012 Injection Depomedrol 80MG Jose Muller, 05/12/2012 Injection RPA-C Immunizations CPT Code Status Date Vaccine Lot # [id number] Given 01/12/2019 Influenza Virus Vaccine, Quadrivalent ([id number]), [id number] Derived From Cell 99608 Given 12/11/2017 Influenza Virus Vaccine, Quadrivalent, Split, [id number] Preservative Free 06285 Given 04/02/2017 Influenza Virus Vaccine, Quadrivalent, Split, [id number] Preservative Free 58144 Given 03/18/2016 Influ Virus Vaccine, Quadrivalent, Split Virus, [place] [address] Given 12/31/2014 Influenza Virus Vaccine, Quadrivalent, Split, [id number] Preservative Free 29024 Given 12/31/2014 Pneumococcal Conjugate Vaccine 13 Valent For [id number] Intramuscular Use 86222 Given 02/18/2014 Flu Vaccine Split Virus Preservative Free For [id number] Indiv 3Yr Older 95921 Given 05/28/2012 Pneumonia Vaccine 44277 Given 05/28/2012 Tdap - Tetanus/Diptheria/Acellular Pertussis 19950 Given 01/30/2011 Influenza Virus 3Yrs & Over [id number] 61756 Given 03/28/2010 Influenza Virus 3Yrs & Over [id number] Vital Signs Date Vital Result Comment 03/10/2019 8:43am Weight 202.00 lb Heart Rate 72 /min BP Systolic 120 mmHg BP Diastolic 82 mmHg Respiratory Rate 16 /min Body Temperature 97.8 F 12/12/2018 1:21pm Height 66 inches 5'6" Weight 204.00 lb Heart Rate 88 /min BP Systolic Sitting 126 mmHg BP Diastolic Sitting 82 mmHg Body Temperature 98.1 F O2 % BldC Oximetry 97 % BMI (Body Mass Index) 32.9 kg/m2 Results Test Acquired Date Facility Test Result H/L Range Note Alkaline Phos 10/21/2018 [facility] Alkaline 103 U/L 35 - [address] [place] [address] [phone] Alp Liver 1% 54.1 % 27.8-76.3 Alp Liver 1 55.7 IU/L 16.2-70.2 Alp Liver 2% 7.8 % 0.0-8.0 Alp Liver 2 8.0 IU/L Abnormal 0.0-5.8 Alp Bone % 38.1 % 19.1-67.7 Alp Bone 39.2 IU/L 12.1-42.7 Alp Intestine % 0.0 % 0.0-20.6 Alp Intestine 0.0 IU/L 0.0-11.0 Alp Placental NotPresent 1 Laboratory test 10/21/2018 [facility] Alkaline 93 U/L Normal 34-[address] [place] [address] [phone] GGTP 30 U/L Normal 9-64.0 Vitamin D Total 25(Oh) 38.6 ng/mL Normal 20-50 2 Laboratory test 10/16/2018 [facility] Troponin-I 0.01 <0.04 [address] (TnI) ng/[place] [address] [phone] CBC Auto Diff 10/16/2018 [facility] White Blood 4.1 Normal 3.5 -10.[address] Count 10^3/uL [place], [place] [id number] [phone] Red Blood Count 4.96 10^6/uL High 3.70-4.87 Hemoglobin 12.8 g/dL Normal 12.0-16.0 Hematocrit 40 % Normal 35-47 Mean Corpuscular Volume 80 fL Normal 80-97 Mean Corpuscular Hemoglobin 26 pg Low 27-31 Mean Corpuscular HGB Conc 32 g/dL Normal 31-36 Red Cell Distribution Width 15 % Normal 10-15 Platelet Count 195 10^3/uL Normal 150-450 Mean Platelet Volume 8.7 fL Normal 7.4-10.4 Abs Neutrophils 3.1 10^3/uL Normal 1.5-7.7 Abs Lymphocytes 0.5 10^3/uL Low 1.0-4.8 Abs Monocytes 0.4 10^3/uL Normal 0-0.8 Abs Eosinophils 0.1 10^3/uL Normal 0-0.6 Abs Basophils 0.0 10^3/uL Normal 0-0.2 Abs Nucleated RBC 0.0 10^3/uL Granulocyte % 74.7 % Lymphocyte % 11.2 % Monocyte % 10.3 % Eosinophil % 3.3 % Basophil % 0.5 % Nucleated Red Blood Cells % 0.1 Comp Metabolic 10/16/2018 [facility] Sodium 138 mmol/L Normal 135-[address] [place] [address] [phone] Potassium 3.3 mmol/L Low 3.5-5.0 Chloride 103 mmol/L Normal 101-111 Co2 Carbon Dioxide 27 mmol/L Normal 22-32 Anion Gap 8 mmol/L Normal 2-11 Calcium 9.4 mg/dL Normal 8.6-10.3 Albumin 4.1 g/dL Normal 3.2-5.2 Total Bilirubin 0.30 mg/dL Normal 0.2-1.0 Glucose 102 mg/dL High 70-100 Blood Urea Nitrogen 16 mg/dL Normal 6-24 Creatinine 0.92 mg/dL Normal 0.51-0.95 BUN/Creatinine Ratio 17.4 Normal 8-20 Total Protein 7.2 g/dL Normal 6.4-8.9 Globulin 3.1 g/dL Normal 2-4 Albumin/Globulin Ratio 1.3 Normal 1-3 Alkaline Phosphatase 121 U/L High 34-104 Alt 45 U/L Normal 7-52 Ast 38 U/L Normal 13-39 Egfr Non- 62.3 >60 Egfr 75.3 >60 4 Laboratory 10/16/2018 [facility] Troponin-I (TnI) 0.00 <0.04 [address] ng/[place] [address] [phone] Inr/Protime 10/16/2018 [facility] Inr 1.02 Normal 0.82-1.[address] [place], [place] [id number] [phone] Lipid Profile 10/16/2018 [facility] Triglycerides 97 mg/dL 7 (Trig/Chol/HDL DRIVE ) [place] [address] [phone] Cholesterol 198 mg/dL 8 HDL Cholesterol 61.9 mg/dL 9 LDL Cholesterol 117 mg/dL 10 Comp Metabolic 10/16/2018 [facility] Sodium 140 mmol/L Normal 135-[address] [place] [address] [phone] Potassium 3.9 mmol/L Normal 3.5-5.0 Chloride 103 mmol/L Normal 101-111 Co2 Carbon Dioxide 30 mmol/L Normal 22-32 Anion Gap 7 mmol/L Normal 2-11 Glucose 94 mg/dL Normal 70-100 Blood Urea Nitrogen 16 mg/dL Normal 6-24 Creatinine 0.91 mg/dL Normal 0.51-0.95 BUN/Creatinine Ratio 17.6 Normal 8-20 Calcium 9.5 mg/dL Normal 8.6-10.3 Total Protein 7.0 g/dL Normal 6.4-8.9 Albumin 4.3 g/dL Normal 3.2-5.2 Globulin 2.7 g/dL Normal 2-4 Albumin/Globulin Ratio 1.6 Normal 1-3 Total Bilirubin 0.40 mg/dL Normal 0.2-1.0 Alkaline Phosphatase 132 U/L High 34-104 Alt 50 U/L Normal 7-52 Ast 45 U/L High 13-39 Egfr Non- 63.1 >60 Egfr 76.3 >60 11 Laboratory 10/16/2018 [facility] TSH (Thyroid 3.12 Normal 0.34 -5.60 test finding [address] Stim Horm) mcIU/[place] [address] [phone] 1 REFERENCE VALUE Not present Test Performed by: [facility] - [address] [address] 2 Total 25-Hydroxyvitamin D2 and D3 (25-OH-VitD) <10 ng/mL (severe deficiency) 10-19 ng/mL (mild to moderate deficiency) 20-50 ng/mL (optimum levels) 51-80 ng/mL (increased risk of hypercalciuria) >80 ng/mL (toxicity possible) 3 Troponin-I testing on Plasma Separator Tubes (PST) has a known false positive rate of 0.20-0.40%. All positive troponins reflex immediately to secondary confirmatory testing. Using the [employer] DxI 800 Access Immunoassay systems, the 99th percentile upper reference limit was demonstrated to be < 0.03 ng/mL. 4 Because ethnic data is not always readily [...] 15-29 5 Kidney failure <15 (or dialysis) 5 Troponin-I testing on Plasma Separator Tubes (PST) has a known false positive rate of 0.20-0.40%. All positive troponins reflex immediately to secondary confirmatory testing. Using the [employer] DxI 800 Access Immunoassay systems, the 99th percentile upper reference limit was demonstrated to be < 0.03 ng/mL. 6 Standard intensity warfarin therapeutic range: 2.0-3.0 High intensity warfarin therapeutic range: 2.5-3.5 7 Desirable: <150 Borderline High: 150-199 High: [...] (or dialysis) Procedures Date Code Description Status 03/10/2019 90003 Anoscopy Completed 12/09/2018 [id number] Diabetic Foot Exam Completed 11/05/2018 [id number] Diabetic Foot Exam Completed 05/16/2018 [id number] Mammogram Completed 05/15/2017 [id number] Mammogram Completed 05/14/2016 [id number] Mammogram Completed 05/13/2015 [id number] Mammogram Completed 05/06/2014 [id number] Mammogram Completed 04/08/2014 [id number] Bone Mineral Density Test Completed 12/02/2013 [id number] Colonoscopy Completed 04/24/2013 [id number] Mammogram Completed 05/23/2011 [id number] Bone Mineral Density Test Completed Medical Devices Description No Information Available Encounters Type Date Location Provider Dx Diagnosis Office Visit 12/12/2018 [employer] Internal Keri Magana MD Z01.818 Encounter for other 1:20p Medicine - [facility] preprocedural examination T84.293A [facility] compl of int fix of bones of foot and toes, init I10 Essential (primary) hypertension Office Visit 10/16/2018 9:51a [facility] Reina Montalvo, R07.89 Other chest Assoc,melissa [facility] pain [facility] R05 Cough Assessments Date Code Description Provider 03/10/2019 C21.0 Malignant neoplasm of anus, unspecified Savage Vargas MD 01/12/2019 Z23 Encounter for immunization Nurse Visit A 12/12/2018 Z01.818 Encounter for other preprocedural Keri Magana MD examination 12/12/2018 T84.293A Other mechanical complication of internal Keri Magana MD fixation device of bones of foot and toes, initial encounter 12/12/2018 I10 Essential (primary) hypertension Keri Magana MD 10/21/2018 Z00.00 Encounter for general adult medical Keri Magana MD examination without abnormal findings 10/21/2018 M21.611 Bunion of right foot Keri Magana MD 10/21/2018 R74.8 Abnormal levels of other serum enzymes Keri Magana MD 10/21/2018 I10 Essential (primary) hypertension Keri Magana MD 10/21/2018 Z23 Encounter for immunization Keri Magana MD 10/16/2018 R07.89 Other chest pain Reina Montalvo M.D. 10/16/2018 R05 Cough Reina Montalvo M.D. Plan of Treatment Future Appointment(s):04/23/2019 8:20 am - [facility] JAYA Tovar21.0 Malignant neoplasm of anus, unspecifiedFollow up:None needed Functional Status Description No Information Available Mental Status Description No Information Available Referrals Description No Information Available
[2019-03-17 15:57] VITALS: BP 113/64
--- NOTE | 2019-03-17 16:09 | UC ---
Lower Extremity/Ankle HPI - HPI Summary HPI Summary: 63 yo female presents with right foot pain. She tells me that she had initial right foot surgery by podiatry in October 2018 and then a second surgery in December 2018. Since that time has had swelling to her right foot with pain during episodes of long weight bearing or activities. 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 She has been using this, but notes the swelling returns if she doesn' t use it. Has not seen podiatry since January - called them this AM and their office is closed for the holiday. Denies numbness, tingling, or new injury. - History of Current Complaint Chief Complaint: UCLowerExtremity Stated Complaint: RIGHT FOOT PAIN Time Seen by Provider: 03/17/19 16:08 Hx Obtained From: Patient Onset/Duration: Gradual Onset Severity Initially: Severe Severity Currently: Severe Pain Intensity: 10 Pain Scale Used: 0-10 Numeric - Allergies/Home Medications Allergies/Adverse Reactions: Allergies Allergy/AdvReac Type Severity Reaction Status Date / Time chocolate flavor Allergy GI Upset Verified 03/17/19 15:57 ketorolac [From Toradol] Allergy Rash Verified 03/17/19 15:57 oxycodone Allergy Tingling Verified 03/17/19 15:57 PMH/Surg Hx/FS Hx/Imm Hx Endocrine History: Hypothyroidism Cardiovascular History: Cardiac Disease, Hypertension GI/ History: Gastroesophageal Reflux - Surgical History Surgical History: Yes Surgery Procedure, Year, and Place: 2019 right foot surgeries, lap cholecystectomy 2006 [facility] [place], [place]. [place] [facility] [place] [place] TUBAL LIG[place] 1977. left shoulder- bone spurs- [place] 2001. right wrist August 2014 [facility] [place]. tonsillectomy[place]. esophageal wrap per pt for reflux X 2 LAST [place] [facility] [place] - Family History Known Family History: Positive: Cardiac Disease, Hypertension, Diabetes - Social History Alcohol Use: None Substance Use Type: None Smoking Status (MU): Never Smoked Tobacco Have You Smoked in the Last Year: No - Immunization History Most Recent Influenza Vaccination: 2016 Most Recent Tetanus Shot: unknown Most Recent Pneumonia Vaccination: never Review of Systems All Other Systems Reviewed And Are Negative: No Constitutional: Positive: Negative Skin: Positive: Negative Respiratory: Positive: Negative Cardiovascular: Positive: Negative Gastrointestinal: Positive: Negative Musculoskeletal: Positive: Other: - Right foot pain Neurological: Positive: Negative Psychological: Positive: Negative Physical Exam - Summary Physical Exam Summary: GENERAL: NAD. WDWN. No pain distress. SKIN: No rashes, sores, lesions, or open wounds. Healed surgical scars right foot CHEST: No accessory muscle use. Breathing comfortably and in no distress. CV: Pulses intact PT and DP. Cap refill <2seconds MSK: RIGHT FOOT: Mild TTP about entire right foot. FROM at ankle. Moves all toes. 2+ edema b/l NEURO: Alert. Sensations intact and symmetric B/L LEs PSYCH: Age appropriate behavior. Triage Information Reviewed: Yes Vital Signs: Initial Vital Signs Temp 98.9 F 03/17/19 15:50 Pulse 71 03/17/19 15:50 Resp 16 03/17/19 15:50 BP 113/64 03/17/19 15:50 Pulse Ox 99 03/17/19 15:50 Vital Signs Reviewed: Yes Diagnostics - Radiology XR foot Radiology Interpretation Completed By: Radiologist Summary of Radiographic Findings: IMPRESSION: SOFT TISSUE SWELLING, NO SPECIFIC EVIDENCE FOR OSTEOMYELITIS. IF THERE IS A HIGH CLINICAL INDEX OF SUSPICION FOR OSTEOMYELITIS CONSIDER A THREE-PHASE BONE SCAN. Lower Extremity Course/Dx - Course Course Of Treatment: XR as above. Reference #: [id number]. I suspect pt is having continued post op pain and recommended she follow up with her middle school french teacher as soon as possible. There is no sign of infection or hardware failure today. Will rx for a short supply of norco for severe pain prn - Differential Dx/Diagnosis Provider Diagnosis: Right foot pain Discharge ED - Sign-Out/Discharge Documenting (check all that apply): Patient Departure All imaging exams completed and their final reports reviewed: Yes - Discharge Plan Condition: Stable Disposition: HOME Prescriptions: HYDROcodone/ACETAMIN 5-325 MG* [[place] 5-325 TAB*] 1 tab PO Q8H PRN #12 tab MDD 3 PRN Reason: Pain - Severe Patient Education Materials: Swollen Joint (ED) Referrals: Keri Magana MD [Primary Care Provider] - Claudio Mack DPM [Doctor of Podiatric Medicine] - As Soon As Possible Additional Instructions: Rest, Ice, and elevate your foot as much as possible Please call Podiatry when they open on and schedule an appointment for a recheck as soon as possible - Billing Disposition and Condition Condition: STABLE Disposition: Home
== END 2019-03-17 16:34 | disposition home or self-care (01) ==
LOC: UCEAST 15:20
DX: M79.671 Pain in right foot (principal); I10 Essential (primary) hypertension; Z82.49 Family history of ischemic heart disease and other diseases of the circulatory system; Z91.02 Food additives allergy status; Z88.5 Allergy status to narcotic agent
CPT/HCPCS: 99211; G0463